=== PATIENT | female | born 1985 | race Caucasian/White ===

== ENCOUNTER 2017-07-29 15:50 | Emergency (ER) | payer MEDICAID, SELFPAY ==
[2017-07-29 16:09] VITALS: BP 127/70; PULSE 93; RESP 18; TEMP 36.9; O2SAT 99; BMI 27.3
--- NOTE | 2017-07-29 17:21 | HMH.EDUTC ---
[facility] [place] Disposition Clinical Impression: Weakness Disposition: Left Against Medical Advice Condition on Discharge: Good Instructions: DI for Muscle Weakness Additional Instructions: As we discussed, your symptom can be the sign of various medical conditions. I understand you do not want any further workup at this time despite the education regarding possible differentials, risks associated with each. You choose to leave without further workup and followup only for new, worsening or persistent symptoms despite my medical advice to have further evaluation of today's symptoms. I advice further workup today but since you are not getting it, return immediately for new or worsening symptoms and call primary care in [place] tomorrow to schedule a follow up for symptoms. Forms: Work/School Release Time of Disposition: 17:40 Medical Decision Making Vital Signs: 07/29/17 16:09 Temperature 98.5 F Temperature Source Temporal Artery Scan Pulse Rate [Right Radial] 93 H Respiratory Rate 18 Blood Pressure [Right Arm] 127/70 Blood Pressure Mean [Right Arm] 89 Blood Pressure Source [Right Arm] Automatic Cuff Blood Pressure Position [Right Arm] Sitting 02 Sat by Pulse Oximetry 99 Oxygen Delivery Method Room Air - Lab Data FSBG 119 Orders (Tests/Meds): ORDERS Category Date Time Status POC Glucose,Bedside Routine Lab 07/29/17 16:13 Received - Oneal Inquiry Pt receiving controlled substance: No - Reevaluation(s) Reevaluation #1: Refusing further workup. Only wanted blood sugar. Discussed possible differentials and risk associated with each. pt still refusing labs, ekg, u/a, possibly CXR against my medical advice. pt adamant related to her diet and lack of vitamins. [facility] [place] HPI - General Stated complaint: weakness Time Seen by Provider: 07/29/17 17:15 Mode of Arrival: Family Vehicle Source of Information: Patient Limitations: No Limitations Description of Symptoms (Recalled from Triage Doc. by RN): PT STATES SHE WOULD LIKE HER BLOOD SUGAR CHECKED D/T FEELING WEAK, FEELING LIKE GOING TO PASS OUT, AND UNABLE TO STAND FOR LONG PERIODS OF TIME. HEENT Symptoms (Recalled from RN notes): No Resp Symptoms (Recalled from RN notes): No Skin Symptoms (Recalled from RN notes): No MS Symptoms (Recalled from RN notes): No Functional Status (Recalled from RN notes): NA - History of Present Illness Provider Complaint: Here w/ 13 year old neice and pt's sister (sister in waiting room) c/o generalized weakness since yesterday. Wanting her blood sugar checked. Thinks it is likely due to not getting the appropriate vitamins everyday but someone told her to have her blood sugar checked. Has drank mild and ate 3 cookies today. First noticed at work yesterday. [employer]. States she started to feel hot and tingly like before you pass out . Imprved with sitting down. [place] the same way again today. Fatigue and just overall feel drained . Denies any other symptoms. Hasn't taken or tried anything for symptoms. No new medications. On current meds (seroquel, remeron and buspar x 1 year for depression, anxiety, schizophrenia). Niece w/ intermittent N/V x 5 days. - Related Data Home Medications Medication Instructions Recorded Confirmed Buspirone HCl [Buspirone HCl] 15 mg PO DAILY 07/29/17 07/29/17 Mirtazapine [Mirtazapine] 30 mg PO DAILY 07/29/17 07/29/17 Quetiapine Fumarate 400 mg PO DAILY 07/29/17 07/29/17 Allergies Allergy/AdvReac Type Severity Reaction Status Date / Time latex [LATEX] Allergy Unknown Verified 07/29/17 16:20 codeine Allergy Verified 07/29/17 16:20 - Worker's Comp Is this a Worker's Comp case?: No [facility] History I have reviewed the patient's past medical history: Yes Medical History: Reports:: Anxiety, Depression, Kidney Stones Denies:: Cancer, Diabetes Mellitus Type 1, Diabetes Mellitus Type 2, MRSA Other Medical History: Reports: Other (schizophrenia) Other Surgeries: Yes: (x3), Other (kidney
--- NOTE | 2017-07-29 17:33 | ED_ITS ---
[facility] [place] Clinical Impression: Weakness Disposition: Left Against Medical Advice Condition on Discharge: Good Instructions: DI for Muscle Weakness Additional Instructions: As we discussed, your symptom can be the sign of various medical conditions. I understand you do not want any further workup at this time despite the education regarding possible differentials, risks associated with each. You choose to leave without further workup and followup only for new, worsening or persistent symptoms despite my medical advice to have further evaluation of today's symptoms. I advice further workup today but since you are not getting it , return immediately for new or worsening symptoms and call primary care in [place] tomorrow to schedule a follow up for symptoms. Forms: Work/School Release Time of Disposition: 17:40 Medical Decision Making Vital Signs: 07/29/17 16:09 Temperature 98.5 F Temperature Source Temporal Artery Scan Pulse Rate [Right Radial] 93 H Respiratory Rate 18 Blood Pressure [Right Arm] 127/70 Blood Pressure Mean [Right Arm] 89 Blood Pressure Source [Right Arm] Automatic Cuff Blood Pressure Position [Right Arm] Sitting 02 Sat by Pulse Oximetry 99 Oxygen Delivery Method Room Air - Lab Data FSBG 119 Orders (Tests/Meds): ORDERS Category Date Time Status POC Glucose,Bedside Routine Lab 07/29/17 16:13 Received - Oneal Inquiry Pt receiving controlled substance: No - Reevaluation(s) Reevaluation #1: Refusing further workup. Only wanted blood sugar. Discussed possible differentials and risk associated with each. pt still refusing labs, ekg, u/a, possibly CXR against my medical advice. pt adamant related to her diet and lack of vitamins. [facility] [place] - General Stated complaint: weakness Time Seen by Provider: 07/29/17 17:15 Mode of Arrival: Family Vehicle Source of Information: Patient Limitations: No Limitations Description of Symptoms (Recalled from Triage Doc. by RN): PT STATES SHE WOULD LIKE HER BLOOD SUGAR CHECKED D/T FEELING WEAK, FEELING LIKE GOING TO PASS OUT, AND UNABLE TO STAND FOR LONG PERIODS OF TIME. HEENT Symptoms (Recalled from RN notes): No Resp Symptoms (Recalled from RN notes): No Skin Symptoms (Recalled from RN notes): No MS Symptoms (Recalled from RN notes): No Functional Status (Recalled from RN notes): NA - History of Present Illness Provider Complaint: Here w/ 13 year old neice and pt's sister (sister in waiting room) c/o generalized weakness since yesterday. Wanting her blood sugar checked. Thinks it is likely due to not getting the appropriate vitamins everyday but someone told her to have her blood sugar checked. Has drank mild and ate 3 cookies today. 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 States she started to feel hot and tingly like before you pass out . Imprved with sitting down. [place] the same way again today. Fatigue and just overall feel drained . Denies any other symptoms. Hasn't taken or tried anything for symptoms. No new medications. On current meds (seroquel, remeron and buspar x 1 year for depression, anxiety, schizophrenia). Niece w/ intermittent N/V x 5 days. - Related Data Home Medications Medication Instructions Recorded Confirmed Buspirone HCl [Buspirone HCl] 15 mg PO DAILY 07/29/17 07/29/17 Mirtazapine [Mirtazapine] 30 mg PO DAILY 07/29/17 07/29/17 Quetiapine Fumarate 400 mg PO DAILY 07/29/17 07/29/17 Diego
[2017-07-29 17:42] VITALS: BP 121/66; PULSE 61; RESP 20; TEMP 36.9; O2SAT 99
[2017-08-01 15:08] LABS: POC Glucose,Bedside 119 mg/dL (70-110)
== END 2017-07-29 17:44 | disposition left against medical advice (07) ==
PROVIDERS: Emergency Provider Nurse Practitioner Family; Family Provider Family Medicine
DX: R53.1 Weakness (principal); Z53.21 Procedure and treatment not carried out due to patient leaving prior to being seen by health care provider; F41.9 Anxiety disorder, unspecified; F32.9 Major depressive disorder, single episode, unspecified; Z79.899 Other long term (current) drug therapy; F17.210 Nicotine dependence, cigarettes, uncomplicated
CPT/HCPCS: 82962; 99202

== ENCOUNTER → 2018-04-01 10:51 | Outpatient (CLI) | payer MEDICAID, SELFPAY ==
--- NOTE | 2018-04-01 10:57 | US_ITS ---
US breast RT complete INDICATION: Right breast tenderness ORDERING PHYSICIAN: Jeana Argueta PATIENT AGE: 32 years COMPARISON: None TECHNIQUE: Right breast ultrasound with right axilla FINDINGS: No cystic or solid lesions evident. Heterogeneous fibroglandular elements noted IMPRESSION: Negative right breast ultrasound BI-RADS Category: 1 Negative Recommend correlation with physical exam. Any palpable nodule should be further evaluated with mammography. Negative ultrasound does not exclude the possibility of malignancy. (A letter has been sent to the patient regarding results of the study.)
== END ==
PROVIDERS: Visit Provider Nurse Practitioner Family
DX: N60.01 Solitary cyst of right breast (principal)
CPT/HCPCS: 76641

== ENCOUNTER → 2018-04-09 15:53 | Outpatient (CLI) | payer MEDICAID, SELFPAY ==
[2018-04-09 16:42] LABS: Basophils % 0.6 % (0.1-2.0); Eosinophils # 0.4 K/mm3 (0.0-0.4); Eosinophils % 6.6 % (0.1-12.0); Hematocrit 35.9 % (37.0-47.0); Hemoglobin 11.5 g/dL (12.2-16.2); Lymphocytes # 1.9 K/mm3 (0.7-4.5); Lymphocytes % 36.4 % (10-50); Mean Corpuscular HGB Conc 32.2 g/dL (31.8-35.4); Mean Corpuscular Hemoglobin 30.2 pg (27.0-31.2); Mean Corpuscular Volume 93.9 fl (81-99); Mean Platelet Volume 7.8 fl (7.4-10.4); Monocytes # 0.2 K/mm3 (0.1-1.0); Monocytes % 4.4 % (1.7-9.3); Neutrophils # 2.8 K/mm3 (1.8-7.8); Platelet Count 275 K/mm3 (142-424); Red Blood Count 3.82 M/mm3 (4.20-5.40); Red Cell Distribution Width 12.6 % (11.5-17.5); White Blood Count 5.3 K/mm3 (4.8-10.8)
[2018-04-09 17:58] LABS: Alanine Aminotransferase 33 U/L (12-78); Albumin Level 3.9 gm/dL (3.4-5.0); Albumin/Globulin Ratio 1.1 (1.1-1.8); Alkaline Phosphatase 75 U/L (46-116); Anion Gap 13.9 mEq/L (5-15); Aspartate Amino Transferase 24 U/L (15-37); Bilirubin,Total 0.6 mg/dL (0.2-1.0); Blood Urea Nitrogen 20 mg/dL (7-18); Calcium 9.9 mg/dL (8.5-10.1); Carbon Dioxide 27 mmol/L (21.0-32.0); Chloride 103 mmol/L (98-107); Creatinine,Serum 1.08 mg/dL (0.55-1.02); Estimated Glomerular Filt Rate 58 ml/min (>60); GFR (African American) 70 ML/MIN (>60); Globulin 3.5 gm/dl (1.3-3.2); Glucose 87 mg/dL (74-106); Potassium 4.9 mmoL/L (3.5-5.1); Sodium 139 mmol/L (136-145); Total Protein,Serum 7.4 gm/dL (6.4-8.2)
[2018-04-11 07:17] LABS: Hep A Ab, IgM Negative (Negative); Hepatitis B Core Antibody IgM Negative (Negative); Hepatitis B Surface Antigen Negative (Negative)
[2018-04-11 15:51] LABS: HIV Screen 4th Generation wRfx Non Reactive (Non Reactive); Hepatitis C Antibody >11.0 s/co ratio (0.0-0.9); Vitamin B12 531 pg/mL (232-1245); Vitamin D 25 Hydroxy 27.6 ng/mL (30.0-100.0)
== END ==
PROVIDERS: Visit Provider Nurse Practitioner Family
DX: B18.2 Chronic viral hepatitis C (principal); R53.83 Other fatigue; Z87.898 Personal history of other specified conditions
CPT/HCPCS: 36415; 80053; 80074; 82607; 82652; 85025; 86703; 87522; G0432

== ENCOUNTER → 2018-12-11 15:31 | Outpatient (CLI) | payer MEDICAID, SELFPAY ==
--- NOTE | 2018-12-11 15:32 | US_ITS ---
US transvaginal HISTORY: Irregular periods, skipping periods ITS.REASON: US T/V- Pelvic Pain ORDERING PHYSICIAN: Epi Fischer MD PATIENT AGE: 33 years Comparison: None FINDINGS: The uterus is 8 by 4 x 4 centimeters with a combined endometrial thickness of 4 mm. No obvious uterine mass. Unremarkable adnexa. No ovarian mass. No cul-de-sac fluid. Blood flow is present in the ovaries. IMPRESSION: Unremarkable pelvic ultrasound
== END ==
PROVIDERS: PCP Internal Medicine Adolescent Medicine; Visit Provider Nurse Practitioner Obstetrics & Gynecology
DX: R10.2 Pelvic and perineal pain (principal)
CPT/HCPCS: 76830

== ENCOUNTER → 2018-12-18 16:48 | Outpatient (CLI) | payer MEDICAID, SELFPAY ==
[2018-12-18 17:52] LABS: Basophils % 0.1 % (0.1-2.0); Eosinophils # 0.2 K/mm3 (0.0-0.4); Hematocrit 26.4 % (37.0-47.0); Hemoglobin 8.7 g/dL (12.2-16.2); Lymphocytes # 0.9 K/mm3 (0.7-4.5); Lymphocytes % 11.7 % (10-50); Mean Corpuscular HGB Conc 32.9 g/dL (31.8-35.4); Mean Corpuscular Hemoglobin 29.9 pg (27.0-31.2); Mean Corpuscular Volume 90.8 fl (81-99); Mean Platelet Volume 8.1 fl (7.4-10.4); Monocytes # 0.2 K/mm3 (0.1-1.0); Monocytes % 3.1 % (1.7-9.3); Neutrophils # 6.4 K/mm3 (1.8-7.8); Neutrophils % 83.2 % (37.0-80.0); Platelet Count 173 K/mm3 (142-424); Red Blood Count 2.91 M/mm3 (4.20-5.40); Red Cell Distribution Width 12.8 % (11.5-17.5); White Blood Count 7.7 K/mm3 (4.8-10.8)
[2018-12-18 18:18] LABS: HCG Qualitative, Serum Negative (Negative)
[2018-12-18 18:23] LABS: Bilirubin,Direct 0.1 mg/dL (0.0-0.2)
[2018-12-18 18:36] LABS: Alanine Aminotransferase 47 U/L (12-78); Albumin Level 2.5 gm/dL (3.4-5.0); Albumin/Globulin Ratio 0.7 (1.1-1.8); Alkaline Phosphatase 109 U/L (46-116); Anion Gap 14.2 mEq/L (5-15); Aspartate Amino Transferase 17 U/L (15-37); Bilirubin,Total 0.4 mg/dL (0.2-1.0); Blood Urea Nitrogen 16 mg/dL (7-18); Calcium 8.8 mg/dL (8.5-10.1); Carbon Dioxide 24 mmol/L (21.0-32.0); Chloride 105 mmol/L (98-107); Creatinine,Serum 1.64 mg/dL (0.55-1.02); Estimated Glomerular Filt Rate 36 ml/min (>60); GFR (African American) 43 ML/MIN (>60); Globulin 3.6 gm/dl (1.3-3.2); Glucose 157 mg/dL (74-106); Potassium 4.2 mmoL/L (3.5-5.1); Sodium 139 mmol/L (136-145); Thyroid Stimulating Hormone 0.45 uIU/ml (0.358-3.740); Total Protein,Serum 6.1 gm/dL (6.4-8.2)
[2018-12-19 13:16] LABS: Hemoglobin A1C 5.9 % (0.0-7.0)
[2018-12-19 13:19] LABS: Ferritin 247 ng/mL (8-388)
[2018-12-20 06:17] LABS: Hep A Ab, IgM Negative (Negative); Hepatitis B Core Antibody IgM Negative (Negative); Hepatitis B Surface Antigen Negative (Negative)
[2018-12-20 08:40] LABS: Iron 9 ug/dL (27-159); UIBC 187 ug/dL (131-425)
[2018-12-20 18:13] LABS: HIV Screen 4th Generation wRfx Non Reactive (Non Reactive); HSV 1 IgG, Type Spec 9.95 index (0.00-0.90); HSV 2 IgG, Type Spec <0.91 index (0.00-0.90); Hepatitis C Antibody >11.0 s/co ratio (0.0-0.9); Rapid Plasma Reagin Ab Titer Non Reactive (NonRea<1:1)
[2018-12-20 18:14] LABS: Iron Saturation 5 % (15-55)
[2018-12-20 18:14] LABS: Vitamin B12 1005 pg/mL (232-1245); Vitamin D 25 Hydroxy 31.8 ng/mL (30.0-100.0)
[2018-12-22 11:33] LABS: HCV Genotype Charge YES; Hepatitis C Genotype 3 (.)
[2018-12-24 15:09] LABS: Hepatitis C Genotype 3 (.)
== END ==
PROVIDERS: Nurse Practitioner Family; Visit Provider Nurse Practitioner Obstetrics & Gynecology
DX: F19.20 Other psychoactive substance dependence, uncomplicated (principal); Z72.51 High risk heterosexual behavior
CPT/HCPCS: 36415; 80053; 80074; 82248; 82607; 82652; 82728; 83036; 83540; 83550; 84443; 84703; 85025; 86592; 86695; 86703; 86790; 87521; 87522; 87902; G0432

== ENCOUNTER 2018-12-19 14:11 | Inpatient (IN) ==
[2018-12-19 15:12] LABS: Basophils % 0.2 % (0.1-2.0); Eosinophils # 0.2 K/mm3 (0.0-0.4); Eosinophils % 3.3 % (0.1-12.0); Hematocrit 25.5 % (37.0-47.0); Lymphocytes # 1.1 K/mm3 (0.7-4.5); Lymphocytes % 20.5 % (10-50); Mean Corpuscular HGB Conc 30.5 g/dL (31.8-35.4); Mean Corpuscular Volume 91.3 fl (81-99); Mean Platelet Volume 8.3 fl (7.4-10.4); Monocytes # 0.4 K/mm3 (0.1-1.0); Monocytes % 6.6 % (1.7-9.3); Neutrophils # 3.8 K/mm3 (1.8-7.8); Neutrophils % 69.5 % (37.0-80.0); Platelet Count 171 K/mm3 (142-424); Red Blood Count 2.79 M/mm3 (4.20-5.40); Red Cell Distribution Width 12.7 % (11.5-17.5); White Blood Count 5.5 K/mm3 (4.8-10.8)
[2018-12-19 15:15] LABS: Hemoglobin 7.8 g/dL (12.2-16.2)
[2018-12-19 15:24] LABS: Albumin Level 2.4 gm/dL (3.4-5.0); Albumin/Globulin Ratio 0.5 (1.1-1.8); Anion Gap 13.8 mEq/L (5-15); Bilirubin,Total 0.4 mg/dL (0.2-1.0); Calcium 9.3 mg/dL (8.5-10.1); Globulin 4.5 gm/dl (1.3-3.2); Total Protein,Serum 6.9 gm/dL (6.4-8.2)
[2018-12-19 15:44] LABS: Amphetamine/Metha Screen,Urine Negative ng/mL (<1000); Barbiturates Screen,Urine Negative ng/mL (<200); Benzodiazepines Screen,Urine Negative ng/mL (<200); Cannabinoid Screen,Urine Negative ng/mL (<50); Cocaine Screen,Urine Negative ng/mL (<300); Methadone Screen,Urine Negative ng/mL (<300); Opiate Screen,Urine Negative ng/mL (<300); Phencyclidine Screen,Urine Negative ng/mL (<25)
--- NOTE | 2018-12-19 16:27 | History & Physical Report ---
*Admission Date: 12/19/18 *Chief complaint: weakness, fatigue, fever, chills, abd pain, HGB 7.8 *History of present illness: 33 year old female with h/o IV drug use, Hep C, and depression including several psychiatric hospitalizations presented to PCP office yesterday with a 3 day history of fever, chills, body aches, abd pain and nausea/vomiting. Assessment was unremarkable with exception of non-specific RLQ tenderness. She was sent for labs which revealed HGB 8.6 and creatinine 1.6. Patient was brought in today for repeat labs, IVF's and CT imaging. Repeat labs showed HGB 7.8 with slight improvement in creat 1.4 She continues to have subjective fevers, chills and body aches. + nausea, no vomiting today. No diarrhea. Reports chronic constipation with no BM in "10 days." States stool was dark prior to that. Denies excessive menstrual bleeding, last menses was approx 3 months ago. Urine preg and urine drug screen were negative. No recent weight loss, loss of appetite, fatigue, easy bruising/bleeding prior to this week. Reported to nursing that last drug use was "3 weeks ago." Patient was admitted for transfusion, CT imaging and surgery consult. [facility] History I have reviewed the patient's past medical history: Yes Medical History: Reports:: Anxiety, Depression, Kidney Stones Denies:: Cancer, Diabetes Mellitus Type 1, Diabetes Mellitus Type 2, MRSA *Have you ever received a pneumonia vaccine?: No *Have you received a flu vaccine this season?: No Other Medical History: Reports: Other Other Surgeries: Yes: , Other Amputation: No Fractures: Yes (ANKLE) - *Social History Smoking Status: Current every day smoker Tobacco Type: cigarettes Alcohol Intake: never Alcohol Intake Frequency:: a few times a month Substance Use Type: heroin, IV drugs, methamphetamine *Occupational Status:: other *Travel in the last 8 weeks: None - Psychiatric History Pschychiatric History:: Reports:: Anxiety, Depression Family Hx:: No significant family history Review of Systems - Constitutional Reports fatigue, Reports fever(s), Reports lack of energy, Reports malaise, Reports weakness - *Gastrointestinal Reports abdominal pain, Reports constipation, Reports nausea, Reports vomiting Comments: dark stools - *Musculoskeletal Reports back pain Meds Home Medications Medication Instructions Recorded Confirmed Type Etodolac [Etodolac 200mg Cap] 200 mg PO Q6HP PRN #20 cap 12/07/18 12/19/18 Rx Methocarbamol [Methocarbamol 500mg 500 mg PO QID PRN #20 tab 12/07/18 12/19/18 Rx Tablet] Buprenorphine HCl/Naloxone HCl 1 tab PO DAILY 12/19/18 12/19/18 History [Buprenorphin-Naloxon 8-2 mg Sl] Buspirone HCl [Buspar 10mg 10 mg PO TID 12/19/18 12/19/18 History tablet] Quetiapine Fumarate 50 mg PO DAILY 12/19/18 12/19/18 History Quetiapine Fumarate 100 mg PO HS 12/19/18 12/19/18 History buPROPion HCl [Bupropion Xl] 300 mg PO DAILY 12/19/18 12/19/18 History Allergies Allergy/AdvReac Type Severity Reaction Status Date / Time latex [LATEX] Allergy Unknown Verified 10/29/18 10:23 codeine Allergy Verified 10/29/18 10:23 Exam Vital signs and Labs for Last 24 Hours: Pulse Resp BP Pulse Ox 74 18 106/46 L 99 12/19/18 15:10 12/19/18 15:10 12/19/18 15:10 12/19/18 15:10 Laboratory Results - last 24 hr 12/19/18 14:25: WBC 5.5 D, RBC 2.79 L, Hgb 7.8 L*, Hct 25.5 L, MCV 91.3, MCH 27.8, MCHC 30.5 L, RDW 12.7, Plt Count 171, MPV 8.3, Neut % (Auto) 69.5, Lymph % (Auto) 20.5, [place] % (Auto) 6.6, Eos % (Auto) 3.3, Baso % (Auto) 0.2, Neut # (Auto) 3.8, Lymph # (Auto) 1.1, [place] # (Auto) 0.4, Eos # (Auto) 0.2, Baso # (Auto) 0.0 12/19/18 14:25: Sodium 136, Potassium 4.8, Chloride 102, Carbon Dioxide 25, Anion Gap 13.8, BUN 16, Creatinine 1.47 H, Estimated Creat Clear 63, Estimated GFR 40 L, Est GFR ( Amer) 49 L, Glucose 98 D, Calcium 9.3, Total Bilirubin 0.4, AST 15, ALT 42, Alkaline Phosphatase 136 H, Total Protein 6.9, Albumin 2.4 L, Globulin 4.5 H, Albumin/Globulin Ratio 0.5 L 12/19/18 14:25: Urine HCG, Qual Negative 12/19/18 14:25: Urine Opiates Screen Negative, Urine Methadone Screen Negative, Ur Barbituates Screen Negative, Ur Phencyclidine Scrn Negative, Ur Amphetamines Screen Negative, U Benzodiazepines Scrn Negative, Urine Cocaine Screen Negative, U Marijuana (THC) Screen Negative I & O for Last 24 hours: Intake & Output 12/17/18 12/18/18 12/19/18 12/20/18 11:59 11:59 11:59 11:59 Weight 164 lb Narrative: Alert and oriented x3. Ill but not toxic female. Rate and rhythm regular. No LE edema. No cervical LAD. Lung sounds clear and equal. Abdomen soft, distended, RLQ/RUQ tenderness, no guarding or rebound. Normoactive BS. ENT exam-dry mucous membranes Assessment and Plan (1) Anemia Current visit: Yes Status: Acute Qualifiers: Anemia type: unspecified type Qualified Code(s): D64.9 - Anemia, unspecified Category: Medical Code(s): D64.9 - Anemia, unspecified (2) Abdominal pain Current visit: Yes Status: Acute Qualifiers: Abdominal location: right lower quadrant Qualified Code(s): R10.31 - Right lower quadrant pain Category: Medical Code(s): R10.9 - Unspecified abdominal pain (3) H/O intravenous drug use in remission Current visit: Yes Status: Acute Category: Medical Code(s): Z87.898 - Personal history of other specified conditions (4) Hep C w/o coma, chronic Current visit: Yes Status: Chronic Category: Medical Code(s): B18.2 - Chronic viral hepatitis C (5) Fever and chills Current visit: Yes Status: Acute Category: Medical Code(s): R50.9 - Fever, unspecified (6) Dehydration Current visit: Yes Status: Acute Category: Medical Code(s): E86.0 - Dehydration - Assessment and plan all Dx Assessment and Plan for all problems:: Admit to medsurg. Type, cross and transfuse [address] imaging of chest, abd and pelvis. Start PPI. Iron studies and B12 level pending. Consult surgery
[2018-12-19 16:48] LABS: Prothrombin Time 10.4 seconds (9.4-11.8)
[2018-12-20 01:22] LABS: Hemoglobin 8.5 g/dL (12.2-16.2)
[2018-12-20 01:23] LABS: Hematocrit 26.9 % (37.0-47.0)
--- NOTE | 2018-12-20 08:17 | Consult Report ---
*Admission Date: 12/19/18 *Reason for consult:: Anemia *History of present illness: This is a 33-year-old female seen in consultation from the service of Dr. Mendes for evaluation regarding anemia. Please see history of present illness forwarded from admission H&P below. 33 year old female with h/o IV drug use, Hep C, and depression including several psychiatric hospitalizations presented to PCP office yesterday with a 3 day history of fever, chills, body aches, abd pain and nausea/vomiting. Assessment was unremarkable with exception of non-specific RLQ tenderness. She was sent for labs which revealed HGB 8.6 and creatinine 1.6. Patient was brought in today for repeat labs, IVF's and CT imaging. Repeat labs showed HGB 7.8 with slight improvement in creat 1.4 She continues to have subjective fevers, chills and body aches. + nausea, no vomiting today. No diarrhea. Reports chronic constipation with no BM in "10 days." States stool was dark prior to that. Denies excessive menstrual bleeding, last menses was approx 3 months ago. Urine preg and urine drug screen were negative. No recent weight loss, loss of appetite, fatigue, easy bruising/bleeding prior to this week. Reported to nursing that last drug use was "3 weeks ago." Patient was admitted for transfusion, CT imaging and surgery consult. Review of Systems - Constitutional Denies chills - ENT Denies difficulty swallowing - *Cardiovascular Denies chest pain - *Respiratory Denies cough - *Gastrointestinal Reports nausea, Reports vomiting - *Genitourinary Denies abnormal vaginal bleeding - *Musculoskeletal Denies numbness - Integumentary/Breasts Denies bleeding lesions - *Neurologic Reports weakness, Denies confusion - Psychiatric Denies anxiety - Endocrine Denies increased thirst - Hematologic/Lymphatic Denies easy bleeding - Allergic/Immunologic Denies GI upset with certain foods [facility] History Medical History: Reports:: Anxiety, Depression, Kidney Stones Denies:: Cancer, Diabetes Mellitus Type 1, Diabetes Mellitus Type 2, MRSA *Have you ever received a pneumonia vaccine?: No *Have you received a flu vaccine this season?: No Other Medical History: Reports: Anemia, Liver Disease, Other Other Surgeries: Yes: , Other Amputation: No Fractures: Yes (ANKLE) - *Social History Educational Level: Completed High School Smoking Status: Current every day smoker Tobacco Type: cigarettes Alcohol Intake: never Alcohol Intake Frequency:: a few times a month Substance Use Type: former substance user, heroin, amphetamines Last Used Substance: days (ago) *Occupational Status:: other Housing: house Household Members: family *Travel in the last 8 weeks: None - Psychiatric History Expresses thoughts of harming self/others: None Suicide Plan Description: No Plan Pschychiatric History:: Reports:: Anxiety, Depression Family Hx:: No significant family history Meds Home Medications Medication Instructions Recorded Confirmed Type Etodolac [Etodolac 200mg Cap] 200 mg PO Q6HP PRN #20 cap 12/07/18 12/19/18 Rx Methocarbamol [Methocarbamol 500mg 500 mg PO QID PRN #20 tab 12/07/18 12/19/18 Rx Tablet] Buprenorphine HCl/Naloxone HCl 1 tab PO DAILY 12/19/18 12/19/18 History [Buprenorphin-Naloxon 8-2 mg Sl] Buspirone HCl [Buspar 10mg 10 mg PO TID 12/19/18 12/19/18 History tablet] Quetiapine Fumarate 50 mg PO DAILY 12/19/18 12/19/18 History Quetiapine Fumarate 100 mg PO HS 12/19/18 12/19/18 History buPROPion HCl [Bupropion Xl] 300 mg PO DAILY 12/19/18 12/19/18 History Allergies Allergy/AdvReac Type Severity Reaction Status Date / Time latex [LATEX] Allergy Unknown Verified 10/29/18 10:23 codeine Allergy Verified 10/29/18 10:23 Exam Vital signs and Labs for Last 24 Hours: Temp Pulse Resp BP Pulse Ox 99.3 F 80 18 126/55 L 95 12/20/18 08:00 12/20/18 08:00 12/20/18 08:00 12/20/18 08:00 12/20/18 08:00 Laboratory Results - last 24 hr 12/19/18 14:25: WBC 5.5 D, RBC 2.79 L, Hgb 7.8 L*, Hct 25.5 L, MCV 91.3, MCH 27.8, MCHC 30.5 L, RDW 12.7, Plt Count 171, MPV 8.3, Neut % (Auto) 69.5, Lymph % (Auto) 20.5, [place] % (Auto) 6.6, Eos % (Auto) 3.3, Baso % (Auto) 0.2, Neut # (Auto) 3.8, Lymph # (Auto) 1.1, [place] # (Auto) 0.4, Eos # (Auto) 0.2, Baso # (Auto) 0.0 12/19/18 14:25: Sodium 136, Potassium 4.8, Chloride 102, Carbon Dioxide 25, Anion Gap 13.8, BUN 16, Creatinine 1.47 H, Estimated Creat Clear 63, Estimated GFR 40 L, Est GFR ( Amer) 49 L, Glucose 98 D, Calcium 9.3, Total Bilirubin 0.4, AST 15, ALT 42, Alkaline Phosphatase 136 H, Total Protein 6.9, Albumin 2.4 L, Globulin 4.5 H, Albumin/Globulin Ratio 0.5 L 12/19/18 14:25: Urine HCG, Qual Negative 12/19/18 14:25: Urine Opiates Screen Negative, Urine Methadone Screen Negative, Ur Barbituates Screen Negative, Ur Phencyclidine Scrn Negative, Ur Amphetamines Screen Negative, U Benzodiazepines Scrn Negative, Urine Cocaine Screen Negative, U Marijuana (THC) Screen Negative 12/19/18 16:35: PT 10.4, INR 1.00 12/19/18 16:35: Blood Type O Positive, Antibody Screen Negative, Crossmatch (AHG) See Detail 12/19/18 16:35: APTT 32.5 12/19/18 17:25: Blood Type Confirm O Positive 12/20/18 01:05: Hgb 8.5 L, Hct 26.9 L I & O for Last 24 hours: Intake & Output 12/17/18 12/18/18 12/19/18 12/20/18 11:59 11:59 11:59 11:59 Intake Total 2420 / 2420 Balance 2420 / 2420 Weight 106 lb 6 oz - Constitutional no acute distress - *Routine Respiratory Exam Absent: respiratory distress - *Routine Cardiovascular Exam Present: RRR - *Routine Abdominal Exam Present: soft Results - Labs 12/20/18 01:05 12/19/18 14:25 Laboratory Results - last 24 hr 12/19/18 14:25: WBC 5.5 D, RBC 2.79 L, Hgb 7.8 L*, Hct 25.5 L, MCV 91.3, MCH 27.8, MCHC 30.5 L, RDW 12.7, Plt Count 171, MPV 8.3, Neut % (Auto) 69.5, Lymph % (Auto) 20.5, [place] % (Auto) 6.6, Eos % (Auto) 3.3, Baso % (Auto) 0.2, Neut # (Auto) 3.8, Lymph # (Auto) 1.1, [place] # (Auto) 0.4, Eos # (Auto) 0.2, Baso # (Auto) 0.0 12/19/18 14:25: Sodium 136, Potassium 4.8, Chloride 102, Carbon Dioxide 25, Anion Gap 13.8, BUN 16, Creatinine 1.47 H, Estimated Creat Clear 63, Estimated GFR 40 L, Est GFR ( Amer) 49 L, Glucose 98 D, Calcium 9.3, Total Bilirubin 0.4, AST 15, ALT 42, Alkaline Phosphatase 136 H, Total Protein 6.9, Albumin 2.4 L, Globulin 4.5 H, Albumin/Globulin Ratio 0.5 L 12/19/18 14:25: Urine HCG, Qual Negative 12/19/18 14:25: Urine Opiates Screen Negative, Urine Methadone Screen Negative, Ur Barbituates Screen Negative, Ur Phencyclidine Scrn Negative, Ur Amphetamines Screen Negative, U Benzodiazepines Scrn Negative, Urine Cocaine Screen Negative, U Marijuana (THC) Screen Negative 12/19/18 16:35: PT 10.4, INR 1.00 12/19/18 16:35: Blood Type O Positive, Antibody Screen Negative, Crossmatch (AHG) See Detail 12/19/18 16:35: APTT 32.5 12/19/18 17:25: Blood Type Confirm O Positive 12/20/18 01:05: Hgb 8.5 L, Hct 26.9 L Assessment and Plan (1) Anemia Current visit: Yes Status: Acute Qualifiers: Anemia type: unspecified type Qualified Code(s): D64.9 - Anemia, unspecified Category: Medical Code(s): D64.9 - Anemia, unspecified Follow-up repeat hemoglobin Esophagogastroduodenoscopy this morning I have discussed the risks and benefits including, but not limited to: Bleeding Infection Damage to surrounding tissue Inherent risks of sedation The patient agrees to proceed. (2) Abdominal pain Current visit: Yes Status: Acute Qualifiers: Abdominal location: right lower quadrant Qualified Code(s): R10.31 - Right lower quadrant pain Category: Medical Code(s): R10.9 - Unspecified abdominal pain (3) H/O intravenous drug use in remission Current visit: Yes Status: Acute Category: Medical Code(s): Z87.898 - Personal history of other specified conditions (4) Hep C w/o coma, chronic Current visit: Yes Status: Chronic Category: Medical Code(s): B18.2 - Chronic viral hepatitis C (5) Fever and chills Current visit: Yes Status: Acute Category: Medical Code(s): R50.9 - Fever, unspecified (6) Dehydration Current visit: Yes Status: Acute Category: Medical Code(s): E86.0 - Dehydration
--- NOTE | 2018-12-20 09:27 | Procedure Note ---
- Procedure: Date: 12/20/18 Procedure Performed:: Esophagogastroduodenoscopy with biopsy Indications:: Anemia Performing Provider:: Ford Colmenares MD Referring Provider:: Dr. Quintana; Dominique Butcher APRN Sedation:: Monitored anesthesia care Procedure:: After informed consent was obtained the patient was taken to the endoscopy suite. Sedation ensued after the patient was transferred to the left lateral decubitus position. Pulse, blood pressure, and oxygen saturation were monitored throughout the procedure. The endoscope was advanced beyond the duodenal bulb. Retroflexion within the gastric lumen was accomplished. The gastroscope was carefully removed and the patient was transferred to recovery in stable condition. Please see "findings" and "specimens" below for detail. Findings:: Small shallow mid-gastric body ulcer with no sign of active hemorrhage ([id number] inflammatory response along margin of gastric ulcer) Specimens:: Antral biopsy Multiple biopsies of small shallow mid gastric body ulcer Recommendations:: Continue proton pump inhibitor Begin Carafate Repeat EGD in approximately 6 weeks Complications:: No immediate Estimated blood obtained (mL): 1
--- NOTE | 2018-12-20 09:43 | Progress Note ---
[facility] Anesthesia Checklist - Structural Data Admitted From: Inpatient Planned Operative Procedure/s: egd Consent for Planned Operative Procedure(s) Verified: Yes - Airway Assessment C-Spine Mobility Assessed: Yes TMJ Mobility Assessed: Yes Dentition: Good Dentition - Neurological Assessment Level of Consciousness: Awake, Alert, Appropriate - Anesthesia Plan Anesthesia Risk discussed: Yes Anesthesia Plan: Verified ASA Class: II Anesthesia Type: MAC [facility] History I have reviewed the patient's past medical history: Yes Medical History: Reports:: Anxiety, Depression, Kidney Stones Denies:: Cancer, Diabetes Mellitus Type 1, Diabetes Mellitus Type 2, MRSA *Have you ever received a pneumonia vaccine?: No *Have you received a flu vaccine this season?: No Other Medical History: Reports: Anemia, Liver Disease, Other Other Surgeries: Yes: , Other Amputation: No Fractures: Yes (ANKLE) - *Social History Educational Level: Completed High School Smoking Status: Current every day smoker Tobacco Type: cigarettes Alcohol Intake: never Alcohol Intake Frequency:: a few times a month Substance Use Type: former substance user, heroin, amphetamines Last Used Substance: days (ago) *Occupational Status:: other Housing: house Household Members: family *Travel in the last 8 weeks: None - Psychiatric History Expresses thoughts of harming self/others: None Suicide Plan Description: No Plan Pschychiatric History:: Reports:: Anxiety, Depression Family Hx:: No significant family history
[2018-12-20 10:08] LABS: Basophils % 0.3 % (0.1-2.0); Eosinophils # 0.1 K/mm3 (0.0-0.4); Eosinophils % 1.6 % (0.1-12.0); Hematocrit 27.4 % (37.0-47.0); Hemoglobin 8.6 g/dL (12.2-16.2); Lymphocytes # 1.6 K/mm3 (0.7-4.5); Lymphocytes % 26.8 % (10-50); Mean Corpuscular HGB Conc 31.5 g/dL (31.8-35.4); Mean Corpuscular Volume 88.3 fl (81-99); Mean Platelet Volume 7.9 fl (7.4-10.4); Monocytes # 0.4 K/mm3 (0.1-1.0); Monocytes % 6.9 % (1.7-9.3); Neutrophils # 3.9 K/mm3 (1.8-7.8); Neutrophils % 64.4 % (37.0-80.0); Platelet Count 189 K/mm3 (142-424); Red Cell Distribution Width 13.6 % (11.5-17.5)
[2018-12-20 10:22] LABS: Anion Gap 10.8 mEq/L (5-15); Calcium 8.9 mg/dL (8.5-10.1)
--- NOTE | 2018-12-20 10:32 | Pharmacy Consult Notes ---
[facility] Pharmacy VTE Monitoring - Patient Demographics Admission date: 12/19/18 Report Date: 12/20/18 Time: 10:31 Allergies/Adverse Reactions: Patient Allergies latex [LATEX] Allergy (Unknown, Verified 10/29/18 10:23) codeine Allergy (Verified 10/29/18 10:23) Height: 1.73 m Weight: 48.251 kg Patient Problems: Current Active Problems (Updated 12/20/18 @ 08:17 by Ford Colmenares MD) Anemia (Acute) Abdominal pain (Acute) H/O intravenous drug use in remission (Acute) Hep C w/o coma, chronic (Chronic) Fever and chills (Acute) Dehydration (Acute) - VTE Risk Labs: VTE Related Lab Results Hgb 8.6 g/dL (12.2-16.2) L 12/20/18 10:00 Hct 27.4 % (37.0-47.0) L 12/20/18 10:00 Plt Count 189 K/mm3 (142-424) 12/20/18 10:00 PT 10.4 seconds (9.4-11.8) 12/19/18 16:35 INR 1.00 (0.9-1.1) 12/19/18 16:35 APTT 32.5 seconds (23.6-34.0) 12/19/18 16:35 BUN 14 mg/dL (7-18) 12/20/18 10:00 Creatinine 1.44 mg/dL (0.55-1.02) H 12/20/18 10:00 Estimated Creat Clear 42 mL/min (50-200) 12/20/18 10:00 Was VTE Risk Assessment Performed: Yes VTE Score: 0 VTE Risk Level: Very Low Risk - Prophylaxis VTE Prophylaxis Ordered?: Yes Types of VTE Prophylaxis: TEDS Knee High Location of Applied Device: Bilateral Lower Extremeties
--- NOTE | 2018-12-20 11:25 | Progress Note ---
Internal Medicine - PN: Subj *Date: 12/20/18 *Time: 11:25 Interval history: Patient sitting up in bed eating clear liquid tray without any nausea, vomiting or abd pain. States she feels better and wants to advance diet. Fevers through the night, Tmax 103. CT abd/pelvis unremarkable with exception of mild inflammation right kidney and significant constipation. Urine culture pending at [facility]. I called lab, preliminary report shows E. Coli sensitivity pending. HGB 8.6 s/p 2 units PRBC. EGD showed small gastric ulcer with no active bleeding, but most likely source of her blood loss. Exam Vital signs and Labs for Last 24 Hours: Temp Pulse Resp BP Pulse Ox 98.2 F 73 16 112/59 L 96 12/20/18 09:32 12/20/18 09:32 12/20/18 09:32 12/20/18 09:32 12/20/18 09:32 Laboratory Results - last 24 hr 12/19/18 14:25: WBC 5.5 D, RBC 2.79 L, Hgb 7.8 L*, Hct 25.5 L, MCV 91.3, MCH 27.8, MCHC 30.5 L, RDW 12.7, Plt Count 171, MPV 8.3, Neut % (Auto) 69.5, Lymph % (Auto) 20.5, [facility] % (Auto) 6.6, Eos % (Auto) 3.3, Baso % (Auto) 0.2, Neut # (Auto) 3.8, Lymph # (Auto) 1.1, [facility] # (Auto) 0.4, Eos # (Auto) 0.2, Baso # (Auto) 0.0 12/19/18 14:25: Sodium 136, Potassium 4.8, Chloride 102, Carbon Dioxide 25, Anion Gap 13.8, BUN 16, Creatinine 1.47 H, Estimated Creat Clear 63, Estimated GFR 40 L, Est GFR ( Amer) 49 L, Glucose 98 D, Calcium 9.3, Total Bilirubin 0.4, AST 15, ALT 42, Alkaline Phosphatase 136 H, Total Protein 6.9, Albumin 2.4 L, Globulin 4.5 H, Albumin/Globulin Ratio 0.5 L 12/19/18 14:25: Urine HCG, Qual Negative 12/19/18 14:25: Urine Opiates Screen Negative, Urine Methadone Screen Negative, Ur Barbituates Screen Negative, Ur Phencyclidine Scrn Negative, Ur Amphetamines Screen Negative, U Benzodiazepines Scrn Negative, Urine Cocaine Screen Negative, U Marijuana (THC) Screen Negative 12/19/18 16:35: PT 10.4, INR 1.00 12/19/18 16:35: Blood Type O Positive, Antibody Screen Negative, Crossmatch (AHG) See Detail 12/19/18 16:35: APTT 32.5 12/19/18 17:25: Blood Type Confirm O Positive 12/20/18 01:05: Hgb 8.5 L, Hct 26.9 L 12/20/18 10:00: WBC 6.0, RBC 3.10 L, Hgb 8.6 L, Hct 27.4 L, MCV 88.3, MCH 27.8, MCHC 31.5 L, RDW 13.6, Plt Count 189, MPV 7.9, Neut % (Auto) 64.4, Lymph % (Auto) 26.8, [facility] % (Auto) 6.9, Eos % (Auto) 1.6, Baso % (Auto) 0.3, Neut # (Auto) 3.9, Lymph # (Auto) 1.6, [facility] # (Auto) 0.4, Eos # (Auto) 0.1, Baso # (Auto) 0.0 12/20/18 10:00: Sodium 138, Potassium 4.8, Chloride 106, Carbon Dioxide 26, Anion Gap 10.8, BUN 14, Creatinine 1.44 H, Estimated Creat Clear 42, Estimated GFR 41 L, Est GFR ( Amer) 50 L, Glucose 84, Calcium 8.9 I & O for Last 24 hours: Intake & Output 12/17/18 12/18/18 12/19/18 12/20/18 11:59 11:59 11:59 11:59 Intake Total 2420 / 2420 Balance 2420 / 2420 Weight 106 lb 6 oz Narrative: Alert and oriented x3. Rate and rhythm regular. Faint murmur noted on exam which is new. No LE edema. Anterior lung sounds clear. Abdomen, distended but soft. Nontender Assessment and Plan (1) Anemia Current visit: Yes Status: Acute Qualifiers: Anemia type: unspecified type Qualified Code(s): D64.9 - Anemia, unspecified Category: Medical Code(s): D64.9 - Anemia, unspecified (2) Abdominal pain Current visit: Yes Status: Acute Qualifiers: Abdominal location: right lower quadrant Qualified Code(s): R10.31 - Right lower quadrant pain Category: Medical Code(s): R10.9 - Unspecified abdominal pain (3) H/O intravenous drug use in remission Current visit: Yes Status: Acute Category: Medical Code(s): Z87.898 - Personal history of other specified conditions (4) Hep C w/o coma, chronic Current visit: Yes Status: Chronic Category: Medical Code(s): B18.2 - Chronic viral hepatitis C (5) Fever and chills Current visit: Yes Status: Acute Category: Medical Code(s): R50.9 - Fever, unspecified (6) Dehydration Current visit: Yes Status: Acute Category: Medical Code(s): E86.0 - Dehydration (7) Newly recognized murmur Current visit: Yes Status: Acute Category: Medical Code(s): R01.1 - Cardiac murmur, unspecified - Assessment and plan all Dx Assessment and Plan for all problems:: Continue PPI. Carafate added. Clear liquids only today. Transfuse with two units PRBC and recheck labs in the am. New murmur is concerning for infective endocarditis given her h/o IV drug use 3 weeks ago and fevers 103. It is possible that fevers are related to pylonephritis given her UTI and mild inflammation of right kidney on CT. Unlikely that temps were related to blood transfusion as she was febrile for 3 days prior to admission. Blood and urine culture obtained. Sed rate and CRP added to blood in lab. Will obtain Echo and cover with broad spectrum antibiotics. Will follow sensitivity of E. Coli on urine cx at [facility]. Mag citrate for constipation. If no BM 4 hours after mag citrate, give soap suds enema until clear.
--- NOTE | 2018-12-20 11:48 | Pharmacy Consult Notes ---
- Pharmacy Consult Date: 12/20/18 Time: 11:47 Referring provider: DR. PINA/MAURICIO Reason for Consult:: VANCOMYCIN DOSING Allergies and ADEs:: Allergies Allergy/AdvReac Type Severity Reaction Status Date / Time latex [LATEX] Allergy Unknown Verified 10/29/18 10:23 codeine Allergy Verified 10/29/18 10:23 Home Medications:: Home Medications Medication Instructions Recorded Confirmed Type Buprenorphine HCl/Naloxone HCl 1 tab PO DAILY 12/19/18 12/19/18 History [Buprenorphin-Naloxon 8-2 mg Sl] Buspirone HCl [Buspar 10mg 10 mg PO TID 12/19/18 12/19/18 History tablet] Quetiapine Fumarate 50 mg PO DAILY 12/19/18 12/19/18 History Quetiapine Fumarate 100 mg PO HS 12/19/18 12/19/18 History buPROPion HCl [Bupropion Xl] 300 mg PO DAILY 12/19/18 12/19/18 History Height: 1.73 m Weight: 48.251 kg Laboratory Results:: Laboratory Results - last 24 hr 12/19/18 14:25: WBC 5.5 D, RBC 2.79 L, Hgb 7.8 L*, Hct 25.5 L, MCV 91.3, MCH 27.8, MCHC 30.5 L, RDW 12.7, Plt Count 171, MPV 8.3, Neut % (Auto) 69.5, Lymph % (Auto) 20.5, [place] % (Auto) 6.6, Eos % (Auto) 3.3, Baso % (Auto) 0.2, Neut # (Auto) 3.8, Lymph # (Auto) 1.1, [place] # (Auto) 0.4, Eos # (Auto) 0.2, Baso # (Auto) 0.0 12/19/18 14:25: Sodium 136, Potassium 4.8, Chloride 102, Carbon Dioxide 25, Anion Gap 13.8, BUN 16, Creatinine 1.47 H, Estimated Creat Clear 63, Estimated GFR 40 L, Est GFR ( Amer) 49 L, Glucose 98 D, Calcium 9.3, Total Bilirubin 0.4, AST 15, ALT 42, Alkaline Phosphatase 136 H, Total Protein 6.9, Albumin 2.4 L, Globulin 4.5 H, Albumin/Globulin Ratio 0.5 L 12/19/18 14:25: Urine HCG, Qual Negative 12/19/18 14:25: Urine Opiates Screen Negative, Urine Methadone Screen Negative, Ur Barbituates Screen Negative, Ur Phencyclidine Scrn Negative, Ur Amphetamines Screen Negative, U Benzodiazepines Scrn Negative, Urine Cocaine Screen Negative, U Marijuana (THC) Screen Negative 12/19/18 16:35: PT 10.4, INR 1.00 12/19/18 16:35: Blood Type O Positive, Antibody Screen Negative, Crossmatch (AHG) See Detail 12/19/18 16:35: APTT 32.5 12/19/18 17:25: Blood Type Confirm O Positive 12/20/18 01:05: Hgb 8.5 L, Hct 26.9 L 12/20/18 10:00: WBC 6.0, RBC 3.10 L, Hgb 8.6 L, Hct 27.4 L, MCV 88.3, MCH 27.8, MCHC 31.5 L, RDW 13.6, Plt Count 189, MPV 7.9, Neut % (Auto) 64.4, Lymph % (Auto) 26.8, [place] % (Auto) 6.9, Eos % (Auto) 1.6, Baso % (Auto) 0.3, Neut # (Auto) 3.9, Lymph # (Auto) 1.6, [place] # (Auto) 0.4, Eos # (Auto) 0.1, Baso # (Auto) 0.0 12/20/18 10:00: Sodium 138, Potassium 4.8, Chloride 106, Carbon Dioxide 26, Anion Gap 10.8, BUN 14, Creatinine 1.44 H, Estimated Creat Clear 42, Estimated GFR 41 L, Est GFR ( Amer) 50 L, Glucose 84, Calcium 8.9 Medical History: Reports:: Anxiety, Depression, Kidney Stones Denies:: Cancer, Diabetes Mellitus Type 1, Diabetes Mellitus Type 2, MRSA Assessment and Plan (1) Anemia Current visit: Yes Status: Acute Qualifiers: Anemia type: unspecified type Qualified Code(s): D64.9 - Anemia, unspecified Category: Medical Code(s): D64.9 - Anemia, unspecified (2) Abdominal pain Current visit: Yes Status: Acute Qualifiers: Abdominal location: right lower quadrant Qualified Code(s): R10.31 - Right lower quadrant pain Category: Medical Code(s): R10.9 - Unspecified abdominal pain (3) H/O intravenous drug use in remission Current visit: Yes Status: Acute Category: Medical Code(s): Z87.898 - Personal history of other specified conditions (4) Hep C w/o coma, chronic Current visit: Yes Status: Chronic Category: Medical Code(s): B18.2 - Chronic viral hepatitis C (5) Fever and chills Current visit: Yes Status: Acute Category: Medical Code(s): R50.9 - Fever, unspecified (6) Dehydration Current visit: Yes Status: Acute Category: Medical Code(s): E86.0 - Dehydration (7) Newly recognized murmur Current visit: Yes Status: Acute Category: Medical Code(s): R01.1 - Car diac murmur, unspecified - Assessment and plan all Dx Assessment and Plan for all problems:: BASED ON PATIENT FACTORS, RECOMMEND VANCOMYCIN 1 GM IV Q24H. PHARMACY WILL FOLLOW DAILY AND ADJUST APPROPRIATE.
[2018-12-20 12:36] LABS: Microscopic, Urine URINE MICROSCOPIC (MICROSCOPIC)
[2018-12-20 12:38] LABS: Appearance,Urine CLEAR (Clear); Bilirubin,Urine Negative (Negative); Blood, Urine Negative (Negative); Color,Urine YELLOW (Yellow); Glucose,Urine (UA) Negative (Negative); Ketones,Urine Negative (Negative); Leukocyte Esterase,Urine 1+ (Negative); Protein,Urine Negative (Negative); Urobilinogen,Urine 0.2 EU/dl (0.2)
[2018-12-20 13:05] LABS: Bacteria,Urine 1+ /lpf
[2018-12-20 21:16] LABS: Hemoglobin 10.8 g/dL (12.2-16.2)
[2018-12-21 06:13] LABS: Basophils % 0.3 % (0.1-2.0); Eosinophils # 0.2 K/mm3 (0.0-0.4); Hematocrit 30.2 % (37.0-47.0); Lymphocytes # 1.5 K/mm3 (0.7-4.5); Lymphocytes % 27.6 % (10-50); Mean Corpuscular HGB Conc 32.1 g/dL (31.8-35.4); Mean Corpuscular Volume 87.7 fl (81-99); Mean Platelet Volume 8.1 fl (7.4-10.4); Monocytes # 0.4 K/mm3 (0.1-1.0); Monocytes % 8.1 % (1.7-9.3); Neutrophils # 3.3 K/mm3 (1.8-7.8); Platelet Count 169 K/mm3 (142-424); Red Blood Count 3.44 M/mm3 (4.20-5.40); Red Cell Distribution Width 14.1 % (11.5-17.5); White Blood Count 5.4 K/mm3 (4.8-10.8)
[2018-12-21 06:15] LABS: Hemoglobin 9.7 g/dL (12.2-16.2)
[2018-12-21 06:20] LABS: Calcium 8.3 mg/dL (8.5-10.1)
--- NOTE | 2018-12-21 07:24 | Progress Note ---
Internal Medicine - PN: Subj *Date: 12/21/18 *Time: 07:22 Interval history: Patient complains of being hungry this morning. The liquid diet is not quite feeling enough. She admits to some abdominal discomfort but better than yesterday after apparently having 4 bowel movements during the day. Nursing staff described the bowel movements as harry colored. Patient is continued to have low-grade fevers. She received 2 additional units of packed red blood cells yesterday with appropriate response in her hemoglobin and hematocrit. Hemoglobin has decreased this morning. Exam Vital signs and Labs for Last 24 Hours: Temp Pulse Resp BP Pulse Ox 97.6 F 51 L 14 98/60 L 98 12/21/18 04:15 12/21/18 04:15 12/21/18 04:15 12/21/18 04:28 12/21/18 04:15 Laboratory Results - last 24 hr 12/19/18 16:35: Blood Type O Positive, Antibody Screen Negative, Crossmatch (AHG) See Detail 12/20/18 10:00: WBC 6.0, RBC 3.10 L, Hgb 8.6 L, Hct 27.4 L, MCV 88.3, MCH 27.8, MCHC 31.5 L, RDW 13.6, Plt Count 189, MPV 7.9, Neut % (Auto) 64.4, Lymph % (Auto) 26.8, [place] % (Auto) 6.9, Eos % (Auto) 1.6, Baso % (Auto) 0.3, Neut # (Auto) 3.9, Lymph # (Auto) 1.6, [place] # (Auto) 0.4, Eos # (Auto) 0.1, Baso # (Auto) 0.0 12/20/18 10:00: Sodium 138, Potassium 4.8, Chloride 106, Carbon Dioxide 26, Anion Gap 10.8, BUN 14, Creatinine 1.44 H, Estimated Creat Clear 42, Estimated GFR 41 L, Est GFR ( Amer) 50 L, Glucose 84, Calcium 8.9 12/20/18 10:00: ESR > 140 H 12/20/18 10:00: C-Reactive Protein 31.6 H 12/20/18 12:30: Urine Color Yellow, Urine Appearance Clear, Urine pH 7.0, Ur Specific [place] 1.010, Urine Protein Negative, Urine Glucose (UA) Negative, Urine Ketones Negative, Urine Blood Negative, Urine Nitrate Negative, Urine Bilirubin Negative, Urine Urobilinogen 0.2, Ur Leukocyte Esterase 1+ A, Urine WBC 5-10, Ur Squamous Epith Cells 3-5, Urine Bacteria 1+ 12/20/18 21:00: Hgb 10.8 L D, Hct 33.0 L 12/21/18 05:45: WBC 5.4, RBC 3.44 L, Hgb 9.7 L D, Hct 30.2 L, MCV 87.7, MCH 28.2, MCHC 32.1, RDW 14.1, Plt Count 169, MPV 8.1, Neut % (Auto) 61.0, Lymph % (Auto) 27.6, [place] % (Auto) 8.1, Eos % (Auto) 3.0, Baso % (Auto) 0.3, Neut # (Auto) 3.3, Lymph # (Auto) 1.5, [place] # (Auto) 0.4, Eos # (Auto) 0.2, Baso # (Auto) 0.0 12/21/18 05:45: Sodium 140, Potassium 5.0, Chloride 108 H, Carbon Dioxide 22, Anion Gap 15.0, BUN 10 D, Creatinine 1.34 H, Estimated Creat Clear 45, Estimated GFR 45 L, Est GFR ( Amer) 54 L, Glucose 122 H D, Calcium 8.3 L I & O for Last 24 hours: Intake & Output 12/18/18 12/19/18 12/20/18 12/21/18 11:59 11:59 11:59 11:59 Intake Total 2420 / 2420 1339 / 1339 Balance 2420 / 2420 1339 / 1339 Weight 106 lb 6 oz 106 lb 6 oz Microbiology Reports for the Last 24 Hours: Microbiology 12/20/18 12:30 Urine,Clean Catch Urine Culture - Preliminary Gram Negative Rods Narrative: She is in no distress. Heart has a regular rate and rhythm. Lungs are clear. Abdomen is soft with some mild right upper quadrant discomfort this morning. Bowel sounds are present Assessment and Plan (1) Anemia Current visit: Yes Status: Acute Qualifiers: Anemia type: unspecified type Qualified Code(s): D64.9 - Anemia, unspecified Category: Medical Code(s): D64.9 - Anemia, unspecified (2) Abdominal pain Current visit: Yes Status: Acute Qualifiers: Abdominal location: right lower quadrant Qualified Code(s): R10.31 - Right lower quadrant pain Category: Medical Code(s): R10.9 - Unspecified abdominal pain (3) H/O intravenous drug use in remission Current visit: Yes Status: Acute Category: Medical Code(s): Z87.898 - Personal history of other specified conditions (4) Hep C w/o coma, chronic Current visit: Yes Status: Chronic Category: Medical Code(s): B18.2 - Chronic viral hepatitis C (5) Fever and chills Current visit: Yes Status: Acute Category: Medical Code(s): R50.9 - Fever, unspecified (6) Dehydration Current visit: Yes Status: Acute Category: Medical Code(s): E86.0 - Dehydration (7) Newly recognized murmur Current visit: Yes Status: Acute Category: Medical Code(s): R01.1 - Cardiac murmur, unspecified - Assessment and plan all Dx Assessment and Plan for all problems:: 1. Await cultures, at this time urine culture is growing a gram-negative anthony 2. Continue IV Protonix as well as Carafate. I will advance patient's diet to full liquids 3. Encourage the patient to ambulate today
--- NOTE | 2018-12-21 09:15 | Progress Note ---
Subjective Patient reports: feels better, bowel movement Exam Vital signs and Labs for Last 24 Hours: Temp Pulse Resp BP Pulse Ox 97.7 F 57 L 18 103/62 L 100 12/21/18 08:00 12/21/18 08:00 12/21/18 08:00 12/21/18 08:00 12/21/18 08:48 Laboratory Results - last 24 hr 12/19/18 16:35: Blood Type O Positive, Antibody Screen Negative, Crossmatch (AHG) See Detail 12/20/18 10:00: WBC 6.0, RBC 3.10 L, Hgb 8.6 L, Hct 27.4 L, MCV 88.3, MCH 27.8, MCHC 31.5 L, RDW 13.6, Plt Count 189, MPV 7.9, Neut % (Auto) 64.4, Lymph % (Auto) 26.8, [place] % (Auto) 6.9, Eos % (Auto) 1.6, Baso % (Auto) 0.3, Neut # (Auto) 3.9, Lymph # (Auto) 1.6, [place] # (Auto) 0.4, Eos # (Auto) 0.1, Baso # (Auto) 0.0 12/20/18 10:00: Sodium 138, Potassium 4.8, Chloride 106, Carbon Dioxide 26, Anion Gap 10.8, BUN 14, Creatinine 1.44 H, Estimated Creat Clear 42, Estimated GFR 41 L, Est GFR ( Amer) 50 L, Glucose 84, Calcium 8.9 12/20/18 10:00: ESR > 140 H 12/20/18 10:00: C-Reactive Protein 31.6 H 12/20/18 12:30: Urine Color Yellow, Urine Appearance Clear, Urine pH 7.0, Ur Specific [place] 1.010, Urine Protein Negative, Urine Glucose (UA) Negative, Urine Ketones Negative, Urine Blood Negative, Urine Nitrate Negative, Urine Bilirubin Negative, Urine Urobilinogen 0.2, Ur Leukocyte Esterase 1+ A, Urine WBC 5-10, Ur Squamous Epith Cells 3-5, Urine Bacteria 1+ 12/20/18 21:00: Hgb 10.8 L D, Hct 33.0 L 12/21/18 05:45: WBC 5.4, RBC 3.44 L, Hgb 9.7 L D, Hct 30.2 L, MCV 87.7, MCH 28.2, MCHC 32.1, RDW 14.1, Plt Count 169, MPV 8.1, Neut % (Auto) 61.0, Lymph % (Auto) 27.6, [place] % (Auto) 8.1, Eos % (Auto) 3.0, Baso % (Auto) 0.3, Neut # (Auto) 3.3, Lymph # (Auto) 1.5, [place] # (Auto) 0.4, Eos # (Auto) 0.2, Baso # (Auto) 0.0 12/21/18 05:45: Sodium 140, Potassium 5.0, Chloride 108 H, Carbon Dioxide 22, Anion Gap 15.0, BUN 10 D, Creatinine 1.34 H, Estimated Creat Clear 45, Estimated GFR 45 L, Est GFR ( Amer) 54 L, Glucose 122 H D, Calcium 8.3 L I & O for Last 24 hours: Intake & Output 12/18/18 12/19/18 12/20/18 12/21/18 11:59 11:59 11:59 11:59 Intake Total 2420 / 2420 1699 / 1699 Balance 2420 / 2420 1699 / 1699 Weight 106 lb 6 oz 106 lb 6 oz Microbiology Reports for the Last 24 Hours: Microbiology 12/20/18 12:30 Urine,Clean Catch Urine Culture - Preliminary Gram Negative Rods - Constitutional no acute distress - *Routine Respiratory Exam Absent: respiratory distress - *Routine Cardiovascular Exam Present: RRR Progress Note: A&P (1) Anemia Status: Acute Current Visit: Yes (2) Abdominal pain Status: Acute Current Visit: Yes (3) H/O intravenous drug use in remission Status: Acute Current Visit: Yes (4) Hep C w/o coma, chronic Status: Chronic Current Visit: Yes (5) Fever and chills Status: Acute Current Visit: Yes (6) Dehydration Status: Acute Current Visit: Yes (7) Newly recognized murmur Status: Acute Current Visit: Yes (8) Gastric ulcer Status: Acute Assessment and plan: continue PPI/Carafate f/u repeat H/H Current Visit: Yes
[2018-12-21 17:27] LABS: Hematocrit 32.2 % (37.0-47.0); Hemoglobin 10.6 g/dL (12.2-16.2)
--- NOTE | 2018-12-22 07:29 | Progress Note ---
Subjective Patient reports: no new complaints, feels better, bowel movement Exam Vital signs and Labs for Last 24 Hours: Temp Pulse Resp BP Pulse Ox 98.0 F 68 16 119/67 96 12/22/18 04:00 12/22/18 04:00 12/22/18 04:00 12/22/18 04:00 12/22/18 04:00 Laboratory Results - last 24 hr 12/21/18 17:15: Hgb 10.6 L, Hct 32.2 L I & O for Last 24 hours: Intake & Output 12/19/18 12/20/18 12/21/18 12/22/18 11:59 11:59 11:59 11:59 Intake Total 2420 / 2420 1699 / 1699 990 / 990 Balance 2420 / 2420 1699 / 1699 990 / 990 Weight 164 lb 7.437 oz 164 lb 7.437 oz 167 lb 7 oz Microbiology Reports for the Last 24 Hours: Microbiology 12/20/18 12:30 Urine,Clean Catch Urine Culture - Preliminary Gram Negative Rods - Constitutional no acute distress - *Routine Respiratory Exam Absent: respiratory distress - *Routine Abdominal Exam Present: soft Progress Note: A&P (1) Anemia Status: Acute Current Visit: Yes (2) Abdominal pain Status: Acute Current Visit: Yes (3) H/O intravenous drug use in remission Status: Acute Current Visit: Yes (4) Hep C w/o coma, chronic Status: Chronic Current Visit: Yes (5) Fever and chills Status: Acute Current Visit: Yes (6) Dehydration Status: Acute Current Visit: Yes (7) Newly recognized murmur Status: Acute Current Visit: Yes (8) Gastric ulcer Status: Acute Assessment and plan: No sign of ongoing hemorrhage. Continue PPI/Carafate Follow-up as outpatient (status post esophagogastroduodenoscopy) Repeat EGD in 6-8 weeks Current Visit: Yes
--- NOTE | 2018-12-22 08:53 | Discharge Summary ---
General - General Admission date:: 12/19/18 Discharge date: 12/22/18 HPI HPI: 33 year old female with h/o IV drug use, Hep C, and depression including several psychiatric hospitalizations presented to PCP office yesterday with a 3 day history of fever, chills, body aches, abd pain and nausea/vomiting. Assessment was unremarkable with exception of non-specific RLQ tenderness. She was sent for labs which revealed HGB 8.6 and creatinine 1.6. Patient was brought in today for repeat labs, IVF's and CT imaging. Repeat labs showed HGB 7.8 with slight improvement in creat 1.4 She continues to have subjective fevers, chills and body aches. + nausea, no vomiting today. No diarrhea. Reports chronic constipation with no BM in "10 days." States stool was dark prior to that. Denies excessive menstrual bleeding, last menses was approx 3 months ago. Urine preg and urine drug screen were negative. No recent weight loss, loss of appetite, fatigue, easy bruising/bleeding prior to this week. Reported to nursing that last drug use was "3 weeks ago." Patient was admitted for transfusion, CT imaging and surgery consult. Hospital Course Hospital Course: Patient was admitted to hospital. Extensive work-up was undertaken including CT scan of the abdomen which was essentially negative. Given her evidence of blood loss surgery was consulted and upper endoscopy was done which revealed a gastric ulcer with sharp borders without active bleeding but certainly consistent with a source of her blood loss. She was placed on proton pump inhibitors and Carafate. She tolerated this well. After transfusio n her hemoglobin marla to expected levels. She did spike a temperature to 103 F. Work-up ensued because of her history of IV drug abuse including echocardiogram, blood cultures and urine cultures. Blood cultures been negative, urine cultures have grown E. coli, pansensitive to tested agents, and she was feeling much better this morning. Echo reports reviewed. This morning patient feels much better, we will send her home with Levaquin and her GI medications, close follow-up in our office and with surgery as noted. Objective Vital signs: Temp Pulse Resp BP Pulse Ox 99.4 F 60 16 122/74 98 12/22/18 08:00 12/22/18 08:00 12/22/18 08:00 12/22/18 08:00 12/22/18 08:00 Narrative: Patient is alert, pleasant. Looks much better. Much more energetic. No JVD. Lungs are clear, heart rate regular without murmurs. Abdomen soft nontender. No edema clubbing or cyanosis. Neurologically intact. No scleral icterus, splinter hemorrhages or stigmata of liver disease. Results Labs on day of discharge: Labs from last 24 hours 12/21/18 17:15 Hgb 10.6 L Hct 32.2 L DS: Diagnosis - Discharge Diagnosis (1) Anemia Status: Resolved (2) Abdominal pain Status: Resolved (3) H/O intravenous drug use in remission Status: Chronic (4) Hep C w/o coma, chronic Status: Chronic (5) Fever and chills Status: Resolved (6) Dehydration Status: Resolved (7) Newly recognized murmur Status: Chronic (8) Gastric ulcer Status: Chronic (9) Anemia due to GI blood loss Status: Resolved Discharge Plan - Patient Discharge Instructions ACTIVITY: Continue current activity DIET: continue same diet Patient Instructions: Hepatitis C, Dehydration, Acute Abdominal Pain, Anemia, Upper GI Endoscopy - Follow up Plan Follow up with: Ford Colmenares MD [Staff Physician] - 1 week Dominique Butcher APRN [Nurse Practitioner] - 12/24/18 9:00 am Disposition: Home, Self-Group Home Medications: Home Medications Medication Instructions Recorded Confirmed Type Buprenorphine HCl/Naloxone HCl 1 tab PO DAILY 12/19/18 12/19/18 History [Buprenorphin-Naloxon 8-2 mg Sl] Buspirone HCl [Buspar 10mg 10 mg PO TID 12/19/18 12/19/18 History tablet] Quetiapine Fumarate 50 mg PO DAILY 12/19/18 12/19/18 History Quetiapine Fumarate 100 mg PO HS 12/19/18 12/19/18 History buPROPion HCl [Bupropion Xl] 300 mg PO DAILY 12/19/18 12/19/18 History Pantoprazole Sodium [Protonix 40mg 40 mg IV BID #60 vial 12/22/18 Rx Vial] Sucralfate [Carafate 1gm/10mL 1 gm PO ACHS #120 udc 12/22/18 Rx Susp] levoFLOXacin [Levaquin 500mg 500 mg PO DAILY #7 tab 12/22/18 Rx tab] Prescriptions/Medication Reconciliation: New levoFLOXacin [Levaquin 500mg tab] 500 mg PO DAILY #7 tab Pantoprazole Sodium [Protonix 40mg Vial] 40 mg IV BID #60 vial Sucralfate [Carafate 1gm/10mL Susp] 1 gm PO ACHS #120 udc Continued Buspirone HCl [Buspar 10mg tablet] 10 mg PO TID buPROPion HCl [Bupropion Xl] 300 mg PO DAILY Quetiapine Fumarate 100 mg PO HS Quetiapine Fumarate 50 mg PO DAILY Buprenorphine HCl/Naloxone HCl [Buprenorphin-Naloxon 8-2 mg Sl] 1 tab PO DAILY
--- NOTE | 2018-12-22 20:41 | Cardiology Report ---
PROCEDURE: 2-D M-mode and color Doppler study INDICATIONS FOR THE TEST: Chest pain COPD Heart Murmur+ Tobacco Smoking+ Palpitations Fatigue Syncope Edema Hypertension Diabetes Mellitus Rheumatic Fever SOB WHYTE Obesity Hyperlipidemia Family History HD Additional History IV DRUG USE 3 WKS AGO, HEP C, MURMUR PATIENT INFORMATION HEIGHT: 68 WEIGHT:106 GENDER: Female B/P:106/46 2-D/M-MODE INTERPRETATION: 2-D MEASUREMENTS OBSERVED VALUES IN CMS Right Ventricular Dimension (RVDd) 2.5 Interventricular Septum (Thickness)(IVsd) 1.1 Left Ventricular Internal Dimensions(LVIDd) 5.4 Left Ventricular Posterior Wall (Thickness)(LVPWd) 0.9 Aortic Root 2.8 Aortic Cusp Separation 1.9 Left Atrial Dimensions (LAD) 3.9 2D 1. Left atrium is normal size, left ventricle is normal size, left ventricle wall thickness is upper normal, there is preserved left ventricular systolic function, visually estimated ejection fraction 55% with no regional wall motion abnormality. 2. The right atrium and right ventricle are mildly enlarged with normal contractility. 3. The aortic valve is grossly normal. 4. The mitral and tricuspid valve is thickened. 5. The pulmonic valve is poorly present 6. No significant pericardial effusion noted. DOPPLER INTERROGATION: Doppler interrogation of the aortic, mitral and tricuspid valvular presence of mild mitral and moderate tricuspid regurgitation, calculated right ventricular 47 mmHg consistent with moderate pulmonary hypertension, diastolic parameters are within normal range. Inferior vena cava is not well visualized. CONCLUSION: 1. Normal left ventricular size, preserved ventricular systolic function visually estimated ejection fraction of 55% with no regional wall motion abnormality. Diastolic parameters are within normal range. 2. Mildly enlarged right ventricle with normal contractility. 3. Mild mitral and moderate tricuspid regurgitation, calculated right ventricular systolic pressure is 47 mmHg consistent with moderate hypertension. 4. No significant pericardial effusion noted.
== END 2018-12-22 11:03 | disposition home or self-care (01) | DRG 812 ==
LOC: 2ND 14:11 → INF 14:11 → UNDODISOB 16:52 → OBSVTOIN 17:33 → 2ND 17:34
PROVIDERS: ADMIT Internal Medicine Adolescent Medicine; ATTEND Internal Medicine Adolescent Medicine
CPT/HCPCS: 36415; 71260; 74178; 80048; 80053; 80074; 80305; 81001; 81025; 82248; 82607; 82652; 82728; 83036; 83540; 83550; 84443; 84703; 85014; 85018; 85025; 85610; 85651; 85730; 86140; 86592; 86695; 86703; 86790; 86850; 87040; 87086; 87088; 87186; 87521; 87522; 87902; 88305; 93306; 96360; G0378; G0432; J0571; J2543; J3370; P9016; Q9967

== ENCOUNTER → 2018-12-26 13:00 | Outpatient (CLI) | payer MEDICAID, SELFPAY ==
[2018-12-26 13:17] LABS: Basophils % 0.5 % (0.1-2.0); Eosinophils # 0.2 K/mm3 (0.0-0.4); Eosinophils % 2.7 % (0.1-12.0); Hemoglobin 13.8 g/dL (12.2-16.2); Lymphocytes # 2.3 K/mm3 (0.7-4.5); Mean Corpuscular HGB Conc 30.7 g/dL (31.8-35.4); Mean Corpuscular Hemoglobin 28.4 pg (27.0-31.2); Mean Corpuscular Volume 92.7 fl (81-99); Mean Platelet Volume 7.7 fl (7.4-10.4); Monocytes # 0.3 K/mm3 (0.1-1.0); Monocytes % 5.2 % (1.7-9.3); Neutrophils # 3.3 K/mm3 (1.8-7.8); Neutrophils % 53.5 % (37.0-80.0); Platelet Count 437 K/mm3 (142-424); Red Blood Count 4.85 M/mm3 (4.20-5.40); Red Cell Distribution Width 13.1 % (11.5-17.5); White Blood Count 6.1 K/mm3 (4.8-10.8)
[2018-12-26 13:35] LABS: Alanine Aminotransferase 62 U/L (12-78); Albumin Level 2.8 gm/dL (3.4-5.0); Albumin/Globulin Ratio 0.5 (1.1-1.8); Alkaline Phosphatase 171 U/L (46-116); Anion Gap 10.7 mEq/L (5-15); Aspartate Amino Transferase 26 U/L (15-37); Bilirubin,Total 0.3 mg/dL (0.2-1.0); Blood Urea Nitrogen 21 mg/dL (7-18); Calcium 9.6 mg/dL (8.5-10.1); Carbon Dioxide 30 mmol/L (21.0-32.0); Chloride 101 mmol/L (98-107); Creatinine,Serum 1.62 mg/dL (0.55-1.02); Estimated Glomerular Filt Rate 36 ml/min (>60); GFR (African American) 44 ML/MIN (>60); Globulin 5.4 gm/dl (1.3-3.2); Glucose 94 mg/dL (74-106); Potassium 4.7 mmoL/L (3.5-5.1); Sodium 137 mmol/L (136-145); Total Protein,Serum 8.2 gm/dL (6.4-8.2)
== END ==
PROVIDERS: Visit Provider Nurse Practitioner Family
DX: D64.9 Anemia, unspecified (principal); R10.9 Unspecified abdominal pain; K59.00 Constipation, unspecified
CPT/HCPCS: 36415; 80053; 85025

== ENCOUNTER → 2019-02-25 16:24 | Outpatient (CLI) | payer MEDICAID, SELFPAY ==
[2019-02-25 16:42] LABS: Hematocrit 39.7 % (37.0-47.0); Hemoglobin 12.2 g/dL (12.2-16.2)
[2019-02-25 17:53] LABS: HCG Qualitative, Serum Negative (Negative)
== END ==
PROVIDERS: Visit Provider Surgery
DX: Z01.818 Encounter for other preprocedural examination (principal); K25.9 Gastric ulcer, unspecified as acute or chronic, without hemorrhage or perforation; K80.20 Calculus of gallbladder without cholecystitis without obstruction
CPT/HCPCS: 36415; 84703; 85014; 85018

== ENCOUNTER 2019-11-25 15:05 | Emergency (ER) | payer OTHER, SELFPAY ==
[2019-11-25] VITALS (9 sets, daily range): BP systolic 92–111; BP diastolic 36–53; PULSE 69–99; RESP 16–18; TEMP 36.6–37.2; O2SAT 96–100; BMI 24.3
[2019-11-25 15:16] LABS: Microscopic, Urine URINE MICROSCOPIC (MICROSCOPIC)
[2019-11-25 15:19] LABS: Appearance,Urine CLEAR (Clear); Bilirubin,Urine Negative (Negative); Blood, Urine 2+ (Negative); Color,Urine YELLOW (Yellow); Glucose,Urine (UA) Negative (Negative); Ketones,Urine Negative (Negative); Leukocyte Esterase,Urine 2+ (Negative); Nitrate,Urine POSITIVE (Negative); PH,Urine 6.5 (5.0-8.5); Protein,Urine 2+ (Negative); Urobilinogen,Urine 0.2 EU/dl (0.2)
[2019-11-25 15:22] LABS: Urine Pregnancy, HCG Qual. Negative (Negative)
--- NOTE | 2019-11-25 15:23 | CT_ITS ---
PROCEDURE: CT ABDOMEN PELVIS WO CON CLINICAL INDICATION: yuliana flank pain COMPARISON: CHESTW CT chest w con from 12/19/[address] abdomen pelvis wo/w con from 12/19/2018 TECHNIQUE: Axial images obtained with sagittal and coronal reformats. All CT scans at the facility use one or more dose reduction, viz: automated exposure control, ma/kV adjustment per patient size (including targeted exams where dose is matched to indication, i.e. head), or iterative reconstruction technique. FINDINGS: Lung bases are clear. Unenhanced liver, adrenal glands, pancreas, and the spleen is unremarkable. The patient is status post cholecystectomy. Mild right renal hydronephrosis and perirenal edema is noted. There is a subtle 2.2 millimeter distal right ureteral calculus with secondary mild right hydroureter. There are multiple nonobstructive left renal calculi of which the largest is in the lower pole measuring 2 millimeters. Is no left hydronephrosis. There is a probable nonobstructive 3.8 millimeter distal left ureteral calculus not present on the 12/19/2018 CT examination. The aorta, small and large bowel, appendix, soft tissues, and bony structures are unremarkable. Bilateral salpingectomy sutures are noted. IMPRESSION: Nonobstructive left renal calculi, probable nonobstructive distal left ureteral calculus, obstructive 2.2 millimeter distal right ureteral calculus, status post cholecystectomy Dictated by: Guru Umaña 11/25/2019 16:37 Electronically signed by Guru Umaña in [place] 11/25/2019 16:37
--- NOTE | 2019-11-25 15:28 | HMH.EDGENADL ---
ED Disposition Clinical Impression: Right ureteral calculus, Pyelonephritis, Septic shock Disposition: Xfer Short-Term Hosp Condition on Discharge: Fair Instructions: DI for Acute Abdomen Referrals: Provider,Referral, MD [Primary Care Provider] - Forms: Transfer Record - ED - Critical Care Critical Care Time: Yes Attestation: On 11/25/19, the high probability of a clinically significant, sudden or life threatening deterioration of the following system(s) required my full and direct attention, intervention and personal management. The time I documented below is in addition to time spent performing reported procedures but includes the following listed in this critical care notation. Total Critical Care Time: 40 Vital system(s) involved:: Shock (Septic) My critical care processes included: Assessment & monitoring of V/S, Initial and Re-exams, Data Review/Interpretation, Coordinating Care, Medication Orders and management, Documentation Medical Decision Making - Medical Records Medical records reviewed: Yes: I reviewed the patient's medical records. - Oneal Inquiry Pt receiving controlled substance: No Oneal was queried for this patient: Yes Reference #:: [id number] Comment: 37 rxs, last rx suboxone 11/09/19 Vital Signs: 11/25/19 15:09 11/25/19 15:44 11/25/19 16:13 Temperature 98.7 F Temperature Source Oral Pulse Rate [Left Radial] 99 H 85 77 Respiratory Rate 18 Blood Pressure [Right Arm] 93/53 L 111/52 L 95/36 L Blood Pressure Mean [Right Arm] 66 71 55 Blood Pressure Source [Right Arm] Automatic Cuff Automatic Cuff Automatic Cuff Blood Pressure Position [Right Arm] Right Lateral Sitting Sitting 02 Sat by Pulse Oximetry 96 98 98 Oxygen Delivery Method Room Air Room Air Room Air 11/25/19 16:43 11/25/19 17:02 11/25/19 17:30 Temperature Temperature Source Pulse Rate [Left Radial] 75 72 70 Respiratory Rate 16 18 Blood Pressure [Right Arm] 93/40 L 94/41 L 97/45 L Blood Pressure Mean [Right Arm] 57 58 62 Blood Pressure Source [Right Arm] Automatic Cuff Automatic Cuff Blood Pressure Position [Right Arm] Supine Sitting 02 Sat by Pulse Oximetry 100 99 100 Oxygen Delivery Method Room Air 11/25/19 18:40 11/25/19 19:00 Temperature 98.9 F 97.8 F Temperature Source Oral Oral Pulse Rate [Left Radial] 69 98 H Respiratory Rate 18 17 Blood Pressure [Right Arm] 92/47 L 101/51 L Blood Pressure Mean [Right Arm] 62 67 Blood Pressure Source [Right Arm] Automatic Cuff Automatic Cuff Blood Pressure Position [Right Arm] Sitting Sitting 02 Sat by Pulse Oximetry 100 98 Oxygen Delivery Method Room Air - Lab Data Lab results reviewed: Yes: I reviewed the patient's lab results. Lab Results 11/25/19 15:10: Urine Color Yellow, Urine Appearance Clear, Urine pH 6.5, Ur Specific [place] 1.020, Urine Protein 2+, Urine Glucose (UA) Negative, Urine Ketones Negative, Urine Blood 2+, Urine Nitrate Positive, Urine Bilirubin Negative, Urine Urobilinogen 0.2, Ur Leukocyte Esterase 2+ A, Urine RBC 10-20, Urine WBC 20-50, Ur Squamous Epith Cells 3-5, Urine Bacteria 3+ 11/25/19 15:10: Urine HCG, Qual Negative 11/25/19 15:24: WBC 16.5 H, RBC 3.65 L, Hgb 11.0 L, Hct 33.0 L, MCV 90.3, MCH 30.2, MCHC 33.5, RDW 13.2, Plt Count 143, MPV 8.2, Neut % (Auto) 87.7 H, Lymph % (Auto) 8.4 L, Sabine % (Auto) 3.3, Eos % (Auto) 0.5, Baso % (Auto) 0.2, Neut # (Auto) 14.5 H, Lymph # (Auto) 1.4, Sabine # (Auto) 0.5, Eos # (Auto) 0.1, Baso # (Auto) 0.0, Total Counted 100, Neutrophils % (Manual) 77 H, Lymphocytes % (Manual) 18, Monocytes % (Manual) 5, Platelet Estimate Normal, RBC Morphology Normal 11/25/19 15:24: Sodium 136, Potassium 4.1, Chloride 100, Carbon Dioxide 27, Anion Gap 13.1, BUN 18 H, Creatinine 1.40 H, Estimated Creat Clear 64, Estimated GFR 43 L, Est GFR ( Amer) 51 L, Glucose 152 H, Calcium 9.3, Total Bilirubin 1.2, AST 43 H, ALT 58, Alkaline Phosphatase 97, Total Protein 7.9, Albumin 3.9, Globulin 4.0 H, Albumin/Globulin Ratio 1.0 L 0
[2019-11-25 15:31] LABS: Basophils % 0.2 % (0.1-2.0); Eosinophils # 0.1 K/mm3 (0.0-0.4); Eosinophils % 0.5 % (0.1-12.0); Lymphocytes # 1.4 K/mm3 (0.7-4.5); Lymphocytes % 8.4 % (10-50); Mean Corpuscular HGB Conc 33.5 g/dL (31.8-35.4); Mean Corpuscular Hemoglobin 30.2 pg (27.0-31.2); Mean Corpuscular Volume 90.3 fl (81-99); Mean Platelet Volume 8.2 fl (7.4-10.4); Monocytes # 0.5 K/mm3 (0.1-1.0); Monocytes % 3.3 % (1.7-9.3); Neutrophils # 14.5 K/mm3 (1.8-7.8); Neutrophils % 87.7 % (37.0-80.0); Platelet Count 143 K/mm3 (142-424); Red Blood Count 3.65 M/mm3 (4.20-5.40); Red Cell Distribution Width 13.2 % (11.5-17.5); White Blood Count 16.5 K/mm3 (4.8-10.8)
[2019-11-25 15:34] LABS: Chloride 100 mmol/L (98-107); Potassium 4.1 mmoL/L (3.5-5.1); Sodium 136 mmol/L (136-145)
[2019-11-25 15:37] LABS: Alanine Aminotransferase 58 U/L (12-78); Albumin Level 3.9 g/dl (3.5-5.0); Alkaline Phosphatase 97 U/L (38-126); Anion Gap 13.1 mEq/L (5-15); Aspartate Amino Transferase 43 U/L (14-36); Bilirubin,Total 1.2 mg/dl (0.2-1.3); Blood Urea Nitrogen 18 mg/dl (7-17); Calcium 9.3 mg/dl (8.4-10.2); Carbon Dioxide 27 mmol/L (22.0-30.0); Creatinine Clearance Estimated 64 mL/min (50-200); Estimated Glomerular Filt Rate 43 ml/min (>60); GFR (African American) 51 ML/MIN (>60); Glucose 152 mg/dl (74-100); Total Protein,Serum 7.9 g/dl (6.3-8.2)
[2019-11-25 15:42] LABS: Bacteria,Urine 3+ /lpf; WBC,Urine 20-50 #/hpf (0-3)
--- NOTE | 2019-11-25 15:44 | PC.NURSE ---
notified rad of ct order
--- NOTE | 2019-11-25 15:52 | PC.NURSE ---
pt to ct
--- NOTE | 2019-11-25 15:54 | PC.NURSE ---
Pt to rad
--- NOTE | 2019-11-25 16:05 | PC.NURSE ---
Pt returned from rad
[2019-11-25 16:07] LABS: Lactic Acid 1.3 mmol/L (0.7-2.1)
[2019-11-25 16:12] LABS: MANUAL DIFFERENTIAL MANUAL DIFFERENTIAL (MANUAL DIFF)
[2019-11-25 16:34] LABS: Lymphocytes % 18 % (10-50); Monocytes % 5 % (2-9); Neutrophils % 77 % (42-76); Platelet Estimate Normal; Total Cells Counted 100
[2019-11-25 16:35] LABS: RBC Morphology Normal
--- NOTE | 2019-11-25 16:53 | PC.NURSE ---
speaking to Dr Mackenzie
--- NOTE | 2019-11-25 16:57 | PC.NURSE ---
notified that pt meets criteria for sepsis bolus, verbal order given
--- NOTE | 2019-11-25 17:15 | PC.NURSE ---
placed call to [facility] for transfer.
--- NOTE | 2019-11-25 17:30 | INFXCTL.NOTE ---
Sepsis bolus complete, notified MD that pt was still hypotensive and stated he did not wish to initiate vasopressors
--- NOTE | 2019-11-25 17:39 | PC.NURSE ---
Dr Soto speaking to Dr Panchal at [facility].
--- NOTE | 2019-11-25 17:47 | PC.NURSE ---
[facility] to call back with room
--- NOTE | 2019-11-25 18:02 | PC.NURSE ---
Lab here for COVID TEST
--- NOTE | 2019-11-25 18:03 | PC.NURSE ---
Dr Soto spoke with Dr Loja, he accepting pt at [facility]. Awaiting call for room assignment.
--- NOTE | 2019-11-25 18:50 | PC.NURSE ---
shift change report given to hannahrn
--- NOTE | 2019-11-25 19:29 | PC.NURSE ---
attempted to give report to [facility]. was told a scene shifter nurse would call back to receive report.
--- NOTE | 2019-11-25 19:40 | PC.NURSE ---
[facility] called wanting to know if the pt was in route to their facility yet. this nurse called to give report to pt assigned nurse melissa HARDWICK is at [facility] to take pt. spoke with a nurse who said it was okay to go ahead and send pt and a nurse would call back for report.
--- NOTE | 2019-11-25 19:57 | PC.NURSE ---
report called to leighann guadarrama RN
[2019-11-27 15:12] LABS: Covid-19 Nasal PCR Sendout Lex NOT DETECTED
== END 2019-11-25 20:10 | disposition short-term general hospital (02) ==
PROVIDERS: Emergency Provider Emergency Medicine
DX: N20.1 Calculus of ureter (principal); N12 Tubulo-interstitial nephritis, not specified as acute or chronic; A41.9 Sepsis, unspecified organism; F41.8 Other specified anxiety disorders; F17.210 Nicotine dependence, cigarettes, uncomplicated; Z87.442 Personal history of urinary calculi; Z91.040 Latex allergy status; Z88.5 Allergy status to narcotic agent
CPT/HCPCS: 74176; 80053; 81001; 81025; 83605; 85007; 85025; 87040; 87077; 87086; 87088; 87186; 96365; 96366; 96367; 96375; 99285; J2405; U0004

== ENCOUNTER → 2019-12-14 13:57 | Outpatient (CLI) | payer OTHER, SELFPAY ==
--- NOTE | 2019-12-14 14:05 | XR_ITS ---
PROCEDURE: XR KUB CLINICAL INDICATION: kidney stone COMPARISON: CT ABDOMEN PELVIS WO CON from 11/25/2019 FINDINGS: There are bilateral ureteral stents in place. Small stones are present on the left overlying the left kidney at 1-2 mm. A 2-3 mm stone is present along the distal aspect of the left ureteral stent. The right ureteral stent appears to be in good position. The proximal aspect of the left ureteral stent may be in the proximal ureteral region as opposed to the left renal pelvis. IMPRESSION: Bilateral ureteral stents in place. Left ureteral stent may be somewhat distracting distally with the proximal aspect likely in the region of the proximal ureter with a small stone along the lower aspect of the left ureteral stent. Dictated by: Julian Garcia MD 12/14/2019 14:43 Electronically signed by Julian Garcia MD in [place] 12/14/2019 14:43
== END ==
PROVIDERS: Visit Provider Urology
DX: N20.0 Calculus of kidney (principal)
CPT/HCPCS: 74018

== ENCOUNTER → 2019-12-15 12:57 | Outpatient (CLI) | payer OTHER, SELFPAY ==
[2019-12-15 14:41] LABS: Coronavirus 19 IgG Antibody Negative (Negative); Coronavirus 19 IgM Antibody Negative (Negative)
--- NOTE | 2019-12-15 19:04 | P.PN_ITS ---
[facility] Anesthesia Record Part II Discharge Time: 16:35 Destination: Surgical Day Care (OP Surgery) PACU nurse assessment reviewed?: Yes Patient Condition:: Good Anesthesia Complications:: None Swallowing reflex intact?: Yes Cyanosis?: No Blood Pressure: 98/55 Pulse Rate: 61 Temperature: 97.6 F Mental Status: Alert & Oriented Pain level:: 0 Nausea and/or vomitting:: None Intake, IV Amount: 0
[2019-12-15 19:05] VITALS: BP 98/55; PULSE 61; TEMP 36.4
== END ==
PROVIDERS: Visit Provider Urology
DX: Z03.818 Encounter for observation for suspected exposure to other biological agents ruled out (principal)
CPT/HCPCS: 36415; 86328

== ENCOUNTER 2019-12-15 13:09 | Day surgery (SDC) | payer OTHER, SELFPAY ==
[2019-12-14 15:40] VITALS: BMI 22.1
[2019-12-15] VITALS (9 sets, daily range): BP systolic 95–118; BP diastolic 42–60; PULSE 50–63; RESP 14–20; TEMP 36.1–36.4; O2SAT 99–100
[2019-12-15 14:07] LABS: Urine Pregnancy, HCG Qual. Negative (Negative)
--- NOTE | 2019-12-15 14:31 | HMH.ANESCL ---
[facility] Anesthesia Checklist - Patient Identification Patient Identification: Arm Band, Verbal (Name & ) - Structural Data Admitted From: Home Planned Operative Procedure/s: cysto Consent for Planned Operative Procedure(s) Verified: Yes Verified Documents: History and Physical - NPO Status Verified Time NPO: 00:00 - Chart Verification Results Verified: CBC, BMP - Additional verifications Patient : No Anesthesia Reactions: No Hx Blood Transfusions: Yes Blood Transfusion Reaction: No Cephalosporin Allergy: No Previous Colonoscopy: Yes - Cardiovascular Assessment Heart Sounds: S1 & S2 Pulse Strength: Baseline Pulse Rhythm: Regular Peripheral Edema: No - Airway Assessment C-Spine Mobility Assessed: Yes TMJ Mobility Assessed: Yes Dentition: Good Dentition - Neurological Assessment Level of Consciousness: Awake, Alert, Appropriate Hx Seizures: No Numbness or tingling in extremities: No - Anesthesia Plan Anesthesia Risk discussed: Yes Anesthesia Plan: Verified ASA Class: II Anesthesia Type: General [facility] History I have reviewed the patient's past medical history: Yes Medical History: Reports:: Anxiety, Depression, Kidney Stones Denies:: Cancer, Diabetes Mellitus Type 1, Diabetes Mellitus Type 2, Internal Pacemaker, MRSA, Seizures *Have you ever received a pneumonia vaccine?: No *Have you received a flu vaccine this season?: No Other Medical History: Reports: Anemia, Liver Disease, Other. Denies: Blood Transfusion Reaction Anesthesia experience/problems:: none Other Surgeries: Yes: No Previous Surgery, , Other. No: Pacemaker Amputation: No Fractures: Yes (ANKLE) - *Social History Last grade of school completed: High school graduate Smoking Status: Current every day smoker Tobacco Type: e-cigarettes # Packs/Day (cigarettes): 1 Alcohol Intake: never Alcohol Intake Frequency:: a few times a month Substance Use Type: former substance user *Occupational Status:: unemployed Housing: house Household Members: family, children *Travel in the last 8 weeks: None - Psychiatric History Pschychiatric History:: Reports:: Anxiety, Depression Family Hx:: No significant family history
--- NOTE | 2019-12-15 16:09 | P.PN_ITS ---
[facility] Anesthesia Record Part I Intake, IV Amount: 400 Estimated blood loss (mL): 0 Urine output (mL): 0 Blood Products used (#): none Blood Pressure: 100/60 SaO2: 99 Pulse Rate: 52 Respiratory Rate: 20 Temperature: 97.0 F Patient is:: Drowsy, Stable Stable to PACU at:: 16:05
--- NOTE | 2019-12-15 16:31 | P.OP_ITS ---
Date of procedure: 12/15/19 Pre-op Diagnosis:: Bilateral ureteral stents Post-op Diagnosis:: Bilateral ureteral stent, left ureteral calculus Procedure performed:: Cystoscopy with bilateral stent removal, bilateral ureteroscopy with left ureteral stone extraction Surgeon:: Mando Shane MD ELECTRICAL LABORATORY TECHNICIAN:: Sandip Mary Anesthesia: GETA Estimated blood loss (mL): 0 Clinical Note:: 34-year-old white female with history of bilateral distal ureteral stones status post bilateral stent placement in [place] on November 25. Operative findings:: Cystoscopy revealed bilateral stents in both ureters. The bladder otherwise was within normal limits. Stents removed and bilateral ureteroscopy performed with a 4 mm stone noted in the left mid ureter. Stone was removed with basket extraction. There is no evidence of stone in the right ureter. Operative note:: Patient taken to the operating room after informed consent was obtained. Placed on the operating table in the supine position and general anesthesia administered. Preoperative antibiotics administered and sequential compression devices placed. She was then placed into the dorsal lithotomy position prepped and draped in the standard surgical fashion. 22 Wilner passed into the urethra and into the bladder without difficulty. The stents were noted from each ureter. Flexible graspers were passed through the scope and the right stent was removed without difficulty. The identical procedure was performed on the left side without difficulty. The cystoscope then removed and our semirigid ureteroscope passed into the bladder and into the left ureter. Passed up to the left mid ureter where a 4 mm stone was noted. A 2.4 Bangladeshi nitinol stone basket was passed through the ureteroscope and the stone was engaged and removed without difficulty. The scope was repassed into the left ureter and no other stones were noted. Ureteroscope was then placed into the right ureter and up to the proximal ureter and no other stones were noted. Scope removed and the bladder drained. Urojet placed into the urethra. Patient tolerated procedure well no complications. She was discharged to the recovery in stable condition. Condition: stable Disposition: PACU Specimens:: Left ureteral stone and bilateral ureteral stents Complications:: None
== END 2019-12-15 17:07 | disposition home or self-care (01) ==
LOC: OR 13:11
PROVIDERS: Visit Provider Urology
PROC: (CPT 52310; principal; 2019-12-15 15:00)
DX: N20.1 Calculus of ureter (principal); F32.9 Major depressive disorder, single episode, unspecified; D64.9 Anemia, unspecified; K76.9 Liver disease, unspecified; F19.11 Other psychoactive substance abuse, in remission; Z88.6 Allergy status to analgesic agent; Z91.040 Latex allergy status; Z79.899 Other long term (current) drug therapy; Z79.891 Long term (current) use of opiate analgesic; Z72.0 Tobacco use
CPT/HCPCS: 52352; 52310; 81025; 96374

== ENCOUNTER 2020-05-06 07:25 | Emergency (ER) | payer OTHER, SELFPAY ==
[2020-05-06 07:37] VITALS: BP 108/64; PULSE 67; RESP 17; TEMP 36.8; O2SAT 100; BMI 22.0
--- NOTE | 2020-05-06 07:46 | CT_ITS ---
PROCEDURE: CT ABDOMEN PELVIS W CON CLINICAL INDICATION: abdominal pain Vomiting and diarrhea COMPARISON: No exams were available for comparison TECHNIQUE: IV Contrast: 75ML Isovue 370 Oral Contrast None Axial images obtained with sagittal and coronal reformats. All CT scans at the facility use one or more dose reduction, viz: automated exposure control, ma/kV adjustment per patient size (including targeted exams where dose is matched to indication, i.e. head), or iterative reconstruction technique. FINDINGS: LOWER THORAX: No acute finding ABDOMEN & PELVIS: There has been a prior cholecystectomy. The liver, spleen, adrenal glands, pancreas, and left kidney have an unremarkable appearance. There is some cortical scarring with atrophy of the right kidney. No renal or ureteral calculi. The stomach is fluid-filled No evidence of appendicitis. There is a small umbilical hernia which contains fat. There are scattered air-fluid levels within the large bowel which is nondistended. There are few fluid-filled loops of nondistended small bowel. No evidence of bowel obstruction. There are bilateral tubal ligation clips. There is mild bulging disc with disc osteophyte complex at L5-S1 causing canal stenosis and bilateral foraminal narrowing. IMPRESSION: Scattered air-fluid levels within the large bowel which may be seen with diarrhea disease. Fluid-filled stomach with a few fluid-filled loops of small bowel also noted which could be seen with gastroenteritis. Dictated by: Julian Garcia MD 05/06/2020 09:01 Julian Garcia MD in [facility] 05/06/2020 09:01
[2020-05-06 07:51] LABS: Microscopic, Urine URINE MICROSCOPIC (MICROSCOPIC)
[2020-05-06 07:53] LABS: Appearance,Urine CLEAR (Clear); Bilirubin,Urine Negative (Negative); Blood, Urine Negative (Negative); Color,Urine YELLOW (Yellow); Glucose,Urine (UA) Negative (Negative); Ketones,Urine Negative (Negative); Leukocyte Esterase,Urine Negative (Negative); Nitrate,Urine Negative (Negative); PH,Urine 5.5 (5.0-8.5); Protein,Urine TRACE (Negative); Specific Gravity, Urine >= 1.030 (1.005-1.030); Urobilinogen,Urine 0.2 EU/dl (0.2)
[2020-05-06 07:55] LABS: Urine Pregnancy, HCG Qual. Negative (Negative)
[2020-05-06 07:56] VITALS: BP 116/67; PULSE 68; O2SAT 97
[2020-05-06 07:56] LABS: Chloride 98 mmol/L (98-107); Potassium 3.4 mmoL/L (3.5-5.1); Sodium 137 mmol/L (136-145)
[2020-05-06 07:59] LABS: Alanine Aminotransferase 44 U/L (12-78); Albumin Level 5.2 g/dl (3.5-5.0); Albumin/Globulin Ratio 1.1 (1.1-1.8); Alkaline Phosphatase 125 U/L (38-126); Amylase 101 U/L (30-110); Anion Gap 15.4 mEq/L (5-15); Aspartate Amino Transferase 43 U/L (14-36); Blood Urea Nitrogen 21 mg/dl (7-17); Calcium 10.6 mg/dl (8.4-10.2); Carbon Dioxide 27 mmol/L (22.0-30.0); Creatinine Clearance Estimated 73 mL/min (50-200); Estimated Glomerular Filt Rate 56 ml/min (>60); GFR (African American) 68 ML/MIN (>60); Globulin 4.9 g/dL (1.3-3.2); Glucose 117 mg/dl (74-100); Lipase 31 U/L (23-300); Total Protein,Serum 10.1 g/dl (6.3-8.2)
[2020-05-06 08:00] LABS: Basophils # 0.1 K/mm3 (0-0.2); Basophils % 0.9 % (0.1-2.0); Eosinophils # 0.1 K/mm3 (0.0-0.4); Eosinophils % 1.2 % (0.1-12.0); Hematocrit 41.7 % (37.0-47.0); Hemoglobin 13.8 g/dL (12.2-16.2); Lymphocytes # 1.9 K/mm3 (0.7-4.5); Lymphocytes % 30.3 % (10-50); Mean Corpuscular Hemoglobin 30.9 pg (27.0-31.2); Mean Corpuscular Volume 93.4 fl (81-99); Monocytes # 0.3 K/mm3 (0.1-1.0); Monocytes % 5.4 % (1.7-9.3); Neutrophils % 62.3 % (37.0-80.0); Platelet Count 242 K/mm3 (142-424); Red Blood Count 4.46 M/mm3 (4.20-5.40); Red Cell Distribution Width 13.3 % (11.5-17.5); White Blood Count 6.4 K/mm3 (4.8-10.8)
--- NOTE | 2020-05-06 08:17 | HMH.EDHA ---
ED Disposition Clinical Impression: Gastroenteritis and colitis, viral Migraine Qualifiers: Migraine type: without aura Status migrainosus presence: without status migrainosus Intractability: not intractable Qualified Code(s): G43.009 - Migraine without aura, not intractable, without status migrainosus Disposition: Home, Self-Care Condition on Discharge: Good Instructions: DI for Viral Gastroenteritis -- Adult Prescriptions: Ondansetron [Zofran 4mg ODT] 4 mg PO TIDP PRN #10 tab PRN Reason: Nausea Transmission Status: Pending to [facility] #[id number] Referrals: PCP,No [Primary Care Provider] - - Critical Care Critical Care Time: No Attestation: On 05/06/20, the high probability of a clinically significant, sudden or life threatening deterioration of the following system(s) required my full and direct attention, intervention and personal management. The time I documented below is in addition to time spent performing reported procedures but includes the following listed in this critical care notation. Medical Decision Making - Medical Records Medical records reviewed: Yes: I reviewed the patient's medical records. - Oneal Inquiry Pt receiving controlled substance: No Vital Signs: 05/06/20 07:37 05/06/20 07:56 05/06/20 08:48 Temperature 98.2 F Temperature Source Oral Pulse Rate [Right Radial] 67 68 66 Respiratory Rate 17 Blood Pressure [Right Arm] 108/64 L 116/67 110/64 Blood Pressure Mean [Right Arm] 78 83 79 Blood Pressure Source [Right Arm] Automatic Cuff Automatic Cuff Blood Pressure Position [Right Arm] Sitting Sitting 02 Sat by Pulse Oximetry 100 97 100 Oxygen Delivery Method Room Air Room Air Room Air 05/06/20 09:00 Temperature Temperature Source Pulse Rate [Right Radial] 67 Respiratory Rate Blood Pressure [Right Arm] 117/78 Blood Pressure Mean [Right Arm] 91 Blood Pressure Source [Right Arm] Automatic Cuff Blood Pressure Position [Right Arm] Sitting 02 Sat by Pulse Oximetry 100 Oxygen Delivery Method Room Air - Lab Data Lab Results 05/06/20 07:30: Urine Color Yellow, Urine Appearance Clear, Urine pH 5.5, Ur Specific [place] >= 1.030, Urine Protein Trace, Urine Glucose (UA) Negative, Urine Ketones Negative, Urine Blood Negative, Urine Nitrate Negative, Urine Bilirubin Negative, Urine Urobilinogen 0.2, Ur Leukocyte Esterase Negative, Urine RBC Occasional, Urine WBC 3-5, Ur Squamous Epith Cells 3-5 05/06/20 07:30: Urine HCG, Qual Negative 05/06/20 07:37: WBC 6.4, RBC 4.46, Hgb 13.8, Hct 41.7, MCV 93.4, MCH 30.9, MCHC 33.0, RDW 13.3, Plt Count 242, MPV 8.0, Neut % (Auto) 62.3, Lymph % (Auto) 30.3, [place] % (Auto) 5.4, Eos % (Auto) 1.2, Baso % (Auto) 0.9, Neut # (Auto) 4.0, Lymph # (Auto) 1.9, [place] # (Auto) 0.3, Eos # (Auto) 0.1, Baso # (Auto) 0.1 05/06/20 07:37: Sodium 137, Potassium 3.4 L, Chloride 98, Carbon Dioxide 27, Anion Gap 15.4 H, BUN 21 H, Creatinine 1.10 H, Estimated Creat Clear 73, Estimated GFR 56 L, Est GFR ( Amer) 68, Glucose 117 H, Calcium 10.6 H, Total Bilirubin 1.0, AST 43 H, ALT 44, Alkaline Phosphatase 125, Total Protein 10.1 H D, Albumin 5.2 H, Globulin 4.9 H, Albumin/Globulin Ratio 1.1, Amylase 101, Lipase 31 Result diagrams: 05/06/20 07:37 05/06/20 07:37 Orders (Tests/Meds): ED MEDICATIONS Discontinued Medications Generic Name Dose Route Start Last Admin Trade Name Yocatsa PRN Reason Stop Dose Admin Diphenhydramine HCl 25 mg 05/06/20 08:14 05/06/20 08:54 Diphenhydramine 50mg/Ml Vial IV 05/06/20 08:15 25 mg ONCE ONE Administration Sodium Chloride 1,000 mls @ 999 mls/hr 05/06/20 08:00 05/06/20 07:56 Sod Chlor 0.9% 1000ml Bag IV 05/06/20 09:00 999 mls/hr .Q1H1M MIGEL Administration Iopamidol 75 ml 05/06/20 08:23 05/06/20 08:24 Iopamidol-370 (76%);100ml Bottle IV 05/06/20 08:24 75 ml ONCE ONE Administration Ketorolac Tromethamine 30 mg 05/06/20 08:14 05/06/20 08:54 Ketorolac 30mg/Ml Vial IV
[2020-05-06 08:18] LABS: RBC,Urine Occasional #/hpf (0-3)
[2020-05-06 08:48] VITALS: BP 110/64; PULSE 66; O2SAT 100
[2020-05-06 09:00] VITALS: BP 117/78; PULSE 67; O2SAT 100
[2020-05-06 09:33] VITALS: BP 130/97; PULSE 75; RESP 18; TEMP 36.8; O2SAT 99
[2020-05-07 17:46] LABS: Covid-19 Nasal PCR Sendout Lex Not Detected
== END 2020-05-06 09:34 | disposition home or self-care (01) ==
PROVIDERS: Emergency Medicine; Emergency Provider Emergency Medicine
DX: K52.9 Noninfective gastroenteritis and colitis, unspecified (principal); G43.009 Migraine without aura, not intractable, without status migrainosus; Z20.828 Contact with and (suspected) exposure to other viral communicable diseases; Z88.5 Allergy status to narcotic agent; Z91.040 Latex allergy status; F41.8 Other specified anxiety disorders; Z79.899 Other long term (current) drug therapy; F11.11 Opioid abuse, in remission
CPT/HCPCS: 74177; 80053; 81001; 81025; 82150; 83690; 85025; 96365; 96375; 96376; 99283; J2405; Q9967; U0004

== ENCOUNTER 2020-08-18 21:01 | Observation (INO) | payer OTHER, SELFPAY ==
[2020-08-18 21:11] VITALS: BP 120/65; PULSE 77; RESP 16; TEMP 36.6; O2SAT 99; BMI 19.8
--- NOTE | 2020-08-18 21:25 | XR_ITS ---
PROCEDURE: XR KNEE LT 3V CLINICAL INDICATION: non-traumatic pain COMPARISON: No exams were available for comparison FINDINGS: No fracture or dislocation. No lytic or blastic change. There is normal mineralization. The joint spaces are well-preserved. No significant degenerative/arthritic changes. No erosive changes evident. Other findings:There may be a small knee joint effusion in the suprapatellar region. IMPRESSION: Possible knee joint effusion otherwise negative Dictated by: Julian aGrcia MD 08/19/2020 05:50 Julian Garcia MD in [facility] 08/19/2020 05:50
--- NOTE | 2020-08-18 21:30 | HMH.EDEXTP ---
ED Disposition Clinical Impression: IVDU (intravenous drug user) Arthralgia Qualifiers: Joint pain location: knee Laterality: left Qualified Code(s): M25.562 - Pain in left knee Disposition: Admitted as Observation Condition on Discharge: Fair Referrals: PCP,No [Primary Care Provider] - - Critical Care Critical Care Time: No Attestation: On 08/18/20, the high probability of a clinically significant, sudden or life threatening deterioration of the following system(s) required my full and direct attention, intervention and personal management. The time I documented below is in addition to time spent performing reported procedures but includes the following listed in this critical care notation. Medical Decision Making - Medical Records Medical records reviewed: Yes: I reviewed the patient's medical records. - Oneal Inquiry Pt receiving controlled substance: No Vital Signs: 08/18/20 21:11 Temperature 97.9 F Temperature Source Oral Pulse Rate [Right] 77 Respiratory Rate 16 Blood Pressure [Right Arm] 120/65 Blood Pressure Mean [Right Arm] 83 Blood Pressure Source [Right Arm] Automatic Cuff Blood Pressure Position [Right Arm] Sitting 02 Sat by Pulse Oximetry 99 Oxygen Delivery Method Room Air - Lab Data Lab results reviewed: Yes: I reviewed the patient's lab results. Lab Results 08/18/20 21:45: WBC 6.2, RBC 3.54 L, Hgb 10.4 L, Hct 32.2 L, MCV 91.2, MCH 29.5, MCHC 32.4, RDW 13.0, Plt Count 228, MPV 7.2 L, Neut % (Auto) 46.2, Lymph % (Auto) 39.4, [place] % (Auto) 4.8, Eos % (Auto) 8.8, Baso % (Auto) 0.8, Neut # (Auto) 2.8, Lymph # (Auto) 2.4, [place] # (Auto) 0.3, Eos # (Auto) 0.5 H, Baso # (Auto) 0.1, ESR > 140 H 08/18/20 21:45: Sodium 141, Potassium 3.8, Chloride 104, Carbon Dioxide 28, Anion Gap 12.8, BUN 18 H, Creatinine 1.10 H, Estimated Creat Clear 66, Estimated GFR 56 L, Est GFR ( Amer) 68, Glucose 98, Calcium 9.6, Total Bilirubin 0.4, AST 29, ALT 25, Alkaline Phosphatase 116, C-Reactive Protein 33.4 H, Total Protein 8.4 H, Albumin 4.4, Globulin 4.0 H, Albumin/Globulin Ratio 1.1, Procalcitonin 0.402 08/18/20 21:45: Lactate 1.2 08/18/20 22:05: Urine Color Yellow, Urine Appearance Clear, Urine pH 6.0, Ur Specific [place] >= 1.030, Urine Protein Negative, Urine Glucose (UA) Negative, Urine Ketones Negative, Urine Blood Negative, Urine Nitrate Negative, Urine Bilirubin Negative, Urine Urobilinogen 0.2, Ur Leukocyte Esterase Negative, Urine RBC 3-5, Urine WBC 3-5, Ur Squamous Epith Cells Tntc, Urine Bacteria 1+, Urine Mucus 1+ 08/18/20 22:05: Urine Opiates Screen Positive H, Urine Methadone Screen Negative, Ur Barbituates Screen Negative, Ur Phencyclidine Scrn Negative, Ur Amphetamines Screen [employer], U Benzodiazepines Scrn Negative, Urine Cocaine Screen Negative, U Marijuana (THC) Screen Negative Result diagrams: 08/18/20 21:45 08/18/20 21:45 Orders (Tests/Meds): ED MEDICATIONS Generic Name Dose Route Start Last Admin Trade Name Freq PRN Reason Stop Dose Admin Sodium Chloride 1,000 mls @ 999 mls/hr 08/18/20 23:30 08/18/20 23:38 Sod Chlor 0.9% 1000ml Bag IV 08/19/20 00:30 999 mls/hr .Q1H1M MIGEL Administration Discontinued Medications Generic Name Dose Route Start Last Admin Trade Name Freq PRN Reason Stop Dose Admin Iopamidol 100 ml 08/19/20 00:18 08/18/20 23:10 Iopamidol-370 (76%);100ml Bottle IV 08/19/20 00:19 100 ml ONCE ONE Administration Ketorolac Tromethamine 30 mg 08/18/20 23:36 08/18/20 23:37 Ketorolac 30mg/Ml Vial IV 08/18/20 23:37 30 mg ONCE ONE Administration Methylprednisolone Sodium Succinate 125 mg 08/18/20 23:36 08/18/20 23:37 Methylprednisolone Sod Succ 125mg Vial IV 08/18/20 23:37 125 mg ONCE ONE Administration Sodium Chloride 10 ml 08/19/20 00:18 08/18/20 23:10 Sodium Chloride 0.9% 10ml Syr (Rad Only) IV 08/19/20 00:19 10 ml ONCE ONE Administration ORDERS Category Date Time Status CT cervical spine w con Stat Cat Sca
--- NOTE | 2020-08-18 21:31 | CT_ITS ---
PROCEDURE: CT CERVICAL SPINE W CON CLINICAL INDICATION: pain COMPARISON: No exams were available for comparison TECHNIQUE: Axial images obtained with sagittal and coronal reformats. All CT scans at the facility use one or more dose reduction, viz: automated exposure control, ma/kV adjustment per patient size (including targeted exams where dose is matched to indication, i.e. head), or iterative reconstruction technique. Axial spiral CT scanning performed of the cervical spine beginning at the base of the skull and continuing to the upper T-spine. 3-D multiplanar reconstruction with 3-D manipulation of volumetric data set in image rendering was completed by the radiologist and/or technologist with the supervision of the radiologist on independent workstation. FINDINGS: No fracture nor subluxation is evident. Normal prevertebral soft tissues. Facets, neural foramen and vertebral bodies intact and unremarkable. Normal C1/C2 relationships. Apices of lungs are clear with no acute findings. There is a small concentric bulging disc versus small central disc protrusion suspected C5-C6. There are numerous small cervical lymph nodes as well as numerous small nodes in the mediastinum. No enhancing lesions are evident. There is mild stranding of the fat in the right supraclavicular region at the external jugular vein area. IMPRESSION: 1. No acute fracture or dislocation. 2. Bulging disc versus broad-based small central disc protrusion at C5-C6 which may be better evaluated with MRI if clinically warranted. 3. Numerous small nodes within the superior mediastinum supraclavicular region and lower cervical area 4. Stranding of the fat in the supraclavicular region on the right surrounding the external jugular vein. Inflammatory change such is thrombophlebitis could cause this finding. Recent IJ catheterization is also consideration. Please correlate with clinical parameters Dictated by: Julian Garcia MD 08/19/2020 06:31 Julian Garcia MD in [facility] 08/19/2020 06:31
--- NOTE | 2020-08-18 21:31 | CT_ITS ---
PROCEDURE: CT THORACIC SPINE W CON CLINICAL HISTORY: pain Weakness, pain, IV drug user COMPARISON: No exams were available for comparison TECHNIQUE: Axial images obtained with sagittal and coronal reformats. All CT scans at the facility use one or more dose reduction, viz: automated exposure control, ma/kV adjustment per patient size (including targeted exams where dose is matched to indication, i.e. head), or iterative reconstruction technique. FINDINGS: Normal alignment. No acute fracture or dislocation evident. Vertebral endplate irregularity with Schmorl's nodes noted in the lower thoracic spine. No fracture or dislocation. No evidence discitis, osteomyelitis, or paravertebral abscess. Small left paracentral disc protrusion noted at T7-T8. This is causing mild left lateral recess narrowing. There is scattered small mediastinal lymph nodes. IMPRESSION: 1. No acute fracture or dislocation. No evidence to suggest diskitis or osteomyelitis. No paravertebral abscess. 2. Small left paracentral disc protrusion at T7-T8 3. Mild degenerative changes 4. Scattered small mediastinal lymph nodes Dictated by: Julian Garcia MD 08/19/2020 06:37 Julian Garcia MD in [facility] 08/19/2020 06:37
--- NOTE | 2020-08-18 21:32 | CT_ITS ---
PROCEDURE: CT LUMBAR SPINE W CON CLINICAL HISTORY: back pain Back pain COMPARISON: No exams were available for comparison TECHNIQUE: Axial images obtained with sagittal and coronal reformats. All CT scans at the facility use one or more dose reduction, viz: automated exposure control, ma/kV adjustment per patient size (including targeted exams where dose is matched to indication, i.e. head), or iterative reconstruction technique. FINDINGS: There is normal alignment. No acute fracture or dislocation evident. No lytic or blastic change. Bulging disc is present at L4-5 with mild bilateral foraminal narrowing. There is bulging disc at L5-S1 with broad-based disc osteophyte complex slightly eccentric toward the right with resultant bilateral lateral recess and foraminal narrowing. The disc spaces are well preserved. There is no evidence discitis or osteomyelitis or paravertebral abscess. Incidental note is made of right renal cortical scarring. There is a small fat containing umbilical hernia IMPRESSION: 1. No acute fracture or dislocation. No evidence discitis, osteomyelitis, or paravertebral abscess. 2. Bulging disc is present at L4-5 with mild bilateral foraminal narrowing. 3. There is bulging disc at L5-S1 with broad-based disc osteophyte complex slightly eccentric toward the right with resultant bilateral lateral recess and foraminal narrowing. Dictated by: Julian Garcia MD 08/19/2020 06:42 Julian Garcia MD in [facility] 08/19/2020 06:42
--- NOTE | 2020-08-18 21:32 | XR_ITS ---
PROCEDURE: XR CHEST 2V CLINICAL HISTORY: sob COMPARISON: CR CXR1VP XR chest portable from 11/14/[address] chest w con from 12/19/2018 FINDINGS: The cardiomediastinal silhouette and pulmonary vascularity are within normal limits. The lungs are clear without infiltrates, suspicious nodules, or pleural effusions. No acute bony abnormalities. IMPRESSION: No acute findings. Dictated by: Julian Garcia MD 08/19/2020 05:52 Julian Garcia MD in [facility] 08/19/2020 05:52
--- NOTE | 2020-08-18 21:33 | XR_ITS ---
PROCEDURE: XR PELVIS 1-2V CLINICAL INDICATION: pain COMPARISON: No exams were available for comparison TECHNIQUE: XR Pelvis AP View FINDINGS: No fracture or dislocation is evident. No significant degenerative change. No lytic or blastic change. Bilateral tubal ligation clips are present. IMPRESSION: No acute findings. Dictated by: Julian Garcia MD 08/19/2020 05:51 Julian Garcia MD in [facility] 08/19/2020 05:51
--- NOTE | 2020-08-18 21:34 | XR_ITS ---
PROCEDURE: XR ANKLE RT MIN 3V CLINICAL INDICATION: pain Pain and swelling COMPARISON: No exams were available for comparison FINDINGS: Lateral fibular bone plate is present and there are 2 screws within the medial malleolar region. No acute fracture or dislocation. No lytic or blastic change. IMPRESSION: No acute findings. Dictated by: Julian Garcia MD 08/19/2020 05:33 Julian Garcia MD in [facility] 08/19/2020 05:33
[2020-08-18 22:09] LABS: Alanine Aminotransferase 25 U/L (12-78); Albumin Level 4.4 g/dl (3.5-5.0); Albumin/Globulin Ratio 1.1 (1.1-1.8); Alkaline Phosphatase 116 U/L (38-126); Anion Gap 12.8 mEq/L (5-15); Aspartate Amino Transferase 29 U/L (14-36); Bilirubin,Total 0.4 mg/dl (0.2-1.3); Blood Urea Nitrogen 18 mg/dl (7-17); Calcium 9.6 mg/dl (8.4-10.2); Carbon Dioxide 28 mmol/L (22.0-30.0); Chloride 104 mmol/L (98-107); Creatinine Clearance Estimated 66 mL/min (50-200); Estimated Glomerular Filt Rate 56 ml/min (>60); GFR (African American) 68 ML/MIN (>60); Glucose 98 mg/dl (74-100); Potassium 3.8 mmoL/L (3.5-5.1); Sodium 141 mmol/L (136-145); Total Protein,Serum 8.4 g/dl (6.3-8.2)
[2020-08-18 22:10] LABS: Lactic Acid 1.2 mmol/L (0.7-2.1)
--- NOTE | 2020-08-18 22:10 | PC.NURSE ---
Pt to radiology
[2020-08-18 22:12] LABS: Basophils # 0.1 K/mm3 (0-0.2); Basophils % 0.8 % (0.1-2.0); Eosinophils # 0.5 K/mm3 (0.0-0.4); Eosinophils % 8.8 % (0.1-12.0); Hematocrit 32.2 % (37.0-47.0); Hemoglobin 10.4 g/dL (12.2-16.2); Lymphocytes # 2.4 K/mm3 (0.7-4.5); Lymphocytes % 39.4 % (10-50); Mean Corpuscular HGB Conc 32.4 g/dL (31.8-35.4); Mean Corpuscular Hemoglobin 29.5 pg (27.0-31.2); Mean Corpuscular Volume 91.2 fl (81-99); Mean Platelet Volume 7.2 fl (7.4-10.4); Monocytes # 0.3 K/mm3 (0.1-1.0); Monocytes % 4.8 % (1.7-9.3); Neutrophils # 2.8 K/mm3 (1.8-7.8); Neutrophils % 46.2 % (37.0-80.0); Platelet Count 228 K/mm3 (142-424); Red Blood Count 3.54 M/mm3 (4.20-5.40); White Blood Count 6.2 K/mm3 (4.8-10.8)
[2020-08-18 22:13] LABS: Microscopic, Urine URINE MICROSCOPIC (MICROSCOPIC)
[2020-08-18 22:14] LABS: Appearance,Urine CLEAR (Clear); Bilirubin,Urine Negative (Negative); Blood, Urine Negative (Negative); Color,Urine YELLOW (Yellow); Glucose,Urine (UA) Negative (Negative); Ketones,Urine Negative (Negative); Leukocyte Esterase,Urine Negative (Negative); Nitrate,Urine Negative (Negative); Protein,Urine Negative (Negative); Specific Gravity, Urine >= 1.030 (1.005-1.030); Urobilinogen,Urine 0.2 EU/dl (0.2)
[2020-08-18 22:14] LABS: C-Reactive Protein 33.4 mg/L (0-4)
[2020-08-18 22:26] LABS: Barbiturates Screen,Urine Negative ng/ml (<200)
[2020-08-18 22:27] LABS: Benzodiazepines Screen,Urine Negative ng/ml (<200)
[2020-08-18 22:28] LABS: Procalcitonin 0.402 ng/mL (0.0-2.0)
[2020-08-18 22:28] LABS: Methadone Screen,Urine Negative ng/ml (<300)
[2020-08-18 22:29] LABS: Cannabinoid Screen,Urine Negative ng/ml (<50); Cocaine Screen,Urine Negative ng/ml (<300)
[2020-08-18 22:30] LABS: Opiate Screen,Urine Positive ng/ml (<300)
[2020-08-18 22:31] LABS: Phencyclidine Screen,Urine Negative ng/ml (<25)
[2020-08-18 22:46] LABS: Bacteria,Urine 1+ /lpf; Mucus,Urine 1+ /lpf; Squamous Epithelial Cell,Urine TNTC #/hpf (0-5)
[2020-08-18 22:54] LABS: Erythrocyte Sedimentation Rate > 140 mm/hr (0-20)
[2020-08-18 23:28] VITALS: PULSE 87; O2SAT 100
[2020-08-18 23:30] VITALS: BP 108/53; PULSE 77; O2SAT 100
[2020-08-18 23:45] VITALS: PULSE 73; O2SAT 100
[2020-08-19] VITALS (24 sets, daily range): BP systolic 111–146; BP diastolic 57–79; PULSE 44–82; RESP 14–18; TEMP 36.6–37.3; O2SAT 96–100; BMI 24.8
--- NOTE | 2020-08-19 00:48 | PC.NURSE ---
Tobin,Pharmacist was consulted on Vanc dosing. He states 1gm IV Q8H. orders 1mg/kg lovenox injection for one time dose now.
--- NOTE | 2020-08-19 00:50 | PC.NURSE ---
Dr. Landry s/w Dr. Prado
--- NOTE | 2020-08-19 00:58 | PC.NURSE ---
Called House for bed assignment at this time
--- NOTE | 2020-08-19 00:58 | PC.NURSE ---
Called House for bed assignment
--- NOTE | 2020-08-19 02:46 | PC.NURSE ---
patient up to floor via stretcher.
--- NOTE | 2020-08-19 04:58 | PC.NURSE ---
shift summary patient has rested well since arrival to floor. awoke early this am coughing to the point of gagging. patient denied nausea or vomiting. bed sat up. lungs clear, murmur auscultated. alert and oriented when awake. c/o pain to inside of left lower leg starting at knee to mid calf, worse upon flexing foot. denies falling no apparent injusry noted.
--- NOTE | 2020-08-19 07:22 | P.CONPHA_ITS ---
[facility] Pharmacy VTE Monitoring - Patient Demographics Admission date: 08/19/20 Report Date: 08/19/20 Time: 07:22 Allergies/Adverse Reactions: Patient Allergies latex [LATEX] Allergy (Unknown, Verified 05/06/20 07:44) codeine Allergy (Verified 05/06/20 07:44) Height: 1.73 m Weight: 74.134 kg Patient Problems: Current Active Problems IVDU (intravenous drug user) (Acute) Arthralgia (Acute) - VTE Risk Labs: VTE Related Lab Results Hgb 10.4 g/dL (12.2-16.2) L 08/18/20 21:45 Hct 32.2 % (37.0-47.0) L 08/18/20 21:45 Plt Count 228 K/mm3 (142-424) 08/18/20 21:45 BUN 18 mg/dl (7-17) H 08/18/20 21:45 Creatinine 1.10 mg/dl (0.52-1.04) H 08/18/20 21:45 Estimated Creat Clear 66 mL/min (50-200) 08/18/20 21:45 Was VTE Risk Assessment Performed: Yes VTE Score: 0 VTE Risk Level: Very Low Risk Clinical Trial Participant: No - Prophylaxis VTE Prophylaxis Ordered?: Yes Types of VTE Prophylaxis: TEDS Knee High, Pharmacological Pharmacologic Type: Enoxaparin
[2020-08-19 07:51] LABS: Anion Gap 12.9 mEq/L (5-15); Blood Urea Nitrogen 19 mg/dl (7-17); Calcium 9.2 mg/dl (8.4-10.2); Carbon Dioxide 22 mmol/L (22.0-30.0); Chloride 109 mmol/L (98-107); Creatinine Clearance Estimated 91 mL/min (50-200); Estimated Glomerular Filt Rate 63 ml/min (>60); GFR (African American) 76 ML/MIN (>60); Glucose 173 mg/dl (74-100); Potassium 4.9 mmoL/L (3.5-5.1); Sodium 139 mmol/L (136-145)
--- NOTE | 2020-08-19 08:00 | CA_ITS ---
APPROVED REPORT Bilateral Lower Extremity Venous Study for DVT. Medical Secretary: ROSANNA Indications Lower Extremity Edema: Current Smoker leg swelling Vein Imaging CFV (R): compressive, spontaneous, phasic, augmentation FEM (R): compressive, spontaneous, phasic, augmentation POP (R): compressive, spontaneous, phasic, augmentation DFV (R): compressive, spontaneous, phasic, augmentation PTV (R): Compressible GSV (R): Compressible Peroneals (R):Compressible GAS (R): Compressible CFV (L): compressive, spontaneous, phasic, augmentation FEM (L): compressive, spontaneous, phasic, augmentation POP (L): compressive, spontaneous, phasic, augmentation DFV (L): compressive, spontaneous, phasic, augmentation PTV (L): Compressible GSV (L): Compressible Peroneals (L):Compressible GAS (L): Compressible Findings No evidence of DVT or superficial thrombophlebitis in the veins scanned of the right lower extremity. No evidence of DVT or superficial thrombophlebitis in the veins scanned of the left lower extremity. Conclusion No evidence of DVT or superficial thrombophlebitis in the veins scanned of the right lower extremity. No evidence of DVT or superficial thrombophlebitis in the veins scanned of the left lower extremity. Electronically signed by : Julian Garcia MD 08/19/2020 16:49:29
--- NOTE | 2020-08-19 08:00 | CA_ITS ---
APPROVED REPORT EXAM: Comprehensive 2D, Doppler, and color-flow Echocardiogram Incident Commander: Tatiana Salmeron RDCS Ht: 5 ft 8 in Wt: 130lbs BSA: 1.70 BP: 120/65 mmHg Indications: MURMUR,IV DRUG ABUSE,EDEMA 2D Dimensions LVOT 1.68 cm (M/F) 1.5-2.5 LA Volume 56.40 mL LA Volume Index 33.17 mL/m2 (M/F) 16-34 M-Mode Dimensions RVDd 2.86 cm (0.9-2.6) LA Diam 3.18 cm (1.9-4.0) LVDd 4.78 cm (3.5-5.7) Ao Diam 2.38 cm (2.0-3.7) LVDs 3.35 cm (3.5-5.7) IVSd 0.76 cm (0.6-1.1) PWd 0.67 cm (0.6-1.1) EF (Teich) 57.00% FS 29.90% EDV (Teich) 106.50 mL TAPSE 2.54 (<1.7) ESV (Teich) 45.80 mL LV Diastology E Decel Time 187.00 (160-240 msec) E/A Ratio 1.6 MED E' 9.70 (< 7 cm/sec) E'/MED E' Ratio 8.28 (>14) LAT E' 11.80 (<10 cm/sec) E/LAT E' Ratio 6.81 (>14) Mitral Valve MV E Max Guicho. 80.00 (40-130 cm/s) MV A Velocity 50.00 (40-130 cm/s) E/A Ratio 1.62 MV Decel. Time 187.00 (160-240 ms) MV PHT 55.00 ms Tricuspid Valve TR P. Velocity 314.00 cm/s RAP Estimate 10.00 mmHg RVSP 49.40 mmHg Left Ventricle Left atrium is normal size, left ventricle is normal size, there is no concentric left ventricular hypertrophy, visually estimated ejection fraction 55% with no regional wall motion abnormality. Diastolic parameters are inconclusive. Right Ventricle Right atrium and right ventricle are mildly enlarged with normal contractility, there is an echodense linear mass seen near the nonseptal leaflet of the tricuspid valve, whether this is an artifact, vegetation or thrombus is difficult to ascertain from this study, if clinically indicated transesophageal echocardiogram is recommended. Aortic Valve Aortic valve is minimally thickened and fibrosed there is no aortic stenosis or aortic insufficiency. Mitral Valve Mitral valve is grossly normal, there is trace mitral regurgitation. Tricuspid Valve Tricuspid valve leaflets are minimally thickened, there is moderate tricuspid regurgitation, calculated right ventricular systolic pressure is 41 mmHg. Pulmonic Valve Pulmonic valve is poorly visualized. Great Vessels Aortic root is normal size. Pericardium No significant pericardial effusion noted. Conclusion 1. Normal left ventricular size, preserved left ventricular systolic function, visually estimated ejection fraction 55% with no regional wall motion abnormality, diastolic parameters are inconclusive. 2. Abnormal right atrial echodense structure seen near the nonseptal leaflet of the tricuspid valve whether this is an artifact, thrombus or vegetation cannot be ascertained from this study, if clinically indicated transesophageal echocardiogram is recommended. 3. Moderate tricuspid regurgitation, calculated right ventricular systolic pressure is 41 mmHg. 4. No significant pericardial effusion noted. Electronically signed by : Giuseppe German, 08/19/2020 11:09:00
[2020-08-19 08:04] LABS: Basophils % 0.3 % (0.1-2.0); Eosinophils % 0.6 % (0.1-12.0); Hematocrit 30.7 % (37.0-47.0); Hemoglobin 9.9 g/dL (12.2-16.2); Mean Corpuscular HGB Conc 32.1 g/dL (31.8-35.4); Mean Corpuscular Hemoglobin 29.8 pg (27.0-31.2); Mean Corpuscular Volume 92.7 fl (81-99); Mean Platelet Volume 7.8 fl (7.4-10.4); Monocytes % 1.4 % (1.7-9.3); Neutrophils # 1.4 K/mm3 (1.8-7.8); Neutrophils % 56.7 % (37.0-80.0); Platelet Count 153 K/mm3 (142-424); Red Blood Count 3.32 M/mm3 (4.20-5.40); Red Cell Distribution Width 12.7 % (11.5-17.5); White Blood Count 2.4 K/mm3 (4.8-10.8)
--- NOTE | 2020-08-19 08:57 | HMH.HP ---
*Admission Date: 08/19/20 *Chief complaint: knee pain *History of present illness: 34 yr old female presented to ed with c/o over the last few days pain to lt knee area and rt ankle w/o fever or trauma - has had orif rt ankle in past and does admit to iv drug use - no chest or abd pain - no rash. Pt was admitted to have further work up on knee and ankle pain due to hx of iv drug user. [facility] History I have reviewed the patient's past medical history: Yes Medical History: Reports:: Anxiety, Depression, Kidney Stones Denies:: Cancer, Diabetes Mellitus Type 1, Diabetes Mellitus Type 2, Internal Pacemaker, MRSA, Seizures *Have you ever received a pneumonia vaccine?: No *Have you received a flu vaccine this season?: No Other Medical History: Reports: Anemia, Liver Disease, Other. Denies: Blood Transfusion Reaction Other Surgeries: Yes: No Previous Surgery, Cholecystectomy, , Other. No: Pacemaker Amputation: No Fractures: Yes (ANKLE) - *Social History Smoking Status: Current every day smoker Tobacco Type: cigarettes # Packs/Day (cigarettes): 4 Alcohol Intake: current Alcohol Intake Frequency:: a few times a week Substance Use Type: heroin Last Used Substance: hours (ago) *Occupational Status:: unemployed Housing: house Household Members: family, children *Travel in the last 8 weeks: None - Psychiatric History Pschychiatric History:: Reports:: Anxiety, Depression Family Hx:: No significant family history Review of Systems - Review of Systems Review of systems:: pertinent systems reviewed and negative unless documented below - Constitutional Reports body ache(s), Denies fatigue - Eyes Denies change in vision - ENT Denies nasal discharge - *Cardiovascular Denies chest pain at rest - *Respiratory Denies excessive phlegm production - *Gastrointestinal Denies nausea, Denies vomiting - *Genitourinary Denies abnormal vaginal bleeding - *Musculoskeletal Reports joint pain - Integumentary/Breasts Denies rash - *Neurologic Denies localized weakness, Denies headache(s), Denies seizure-like activity - Psychiatric Denies anxiety - Endocrine Denies flushing - Hematologic/Lymphatic Denies enlarged lymph nodes - Allergic/Immunologic Denies itchy eyes Meds Home Medications Medication Instructions Recorded Confirmed Type buprenorphine 2 mg-naloxone 0.5 mg 1 film BUCCAL DAILY 02/18/19 08/19/20 History sublingual film Buspirone HCl [Buspirone 15 mg 15 mg PO TID 12/14/19 08/19/20 History Tablets] Doxepin HCl [Sinequin 50mg capsule] 100 mg PO HS 08/19/20 08/19/20 History buPROPion HCL [Bupropion Xl] 300 mg PO DAILY 08/19/20 08/19/20 History Allergies Allergy/AdvReac Type Severity Reaction Status Date / Time latex [LATEX] Allergy Unknown Verified 05/06/20 07:44 codeine Allergy Verified 05/06/20 07:44 Exam Vital signs and Labs for Last 24 Hours: Temp Pulse Resp BP Pulse Ox 98.9 F 60 18 130/76 99 08/19/20 04:00 08/19/20 04:00 08/19/20 04:00 08/19/20 04:00 08/19/20 04:00 Laboratory Results - last 24 hr 08/18/20 21:45: WBC 6.2, RBC 3.54 L, Hgb 10.4 L, Hct 32.2 L, MCV 91.2, MCH 29.5, MCHC 32.4, RDW 13.0, Plt Count 228, MPV 7.2 L, Neut % (Auto) 46.2, Lymph % (Auto) 39.4, [place] % (Auto) 4.8, Eos % (Auto) 8.8, Baso % (Auto) 0.8, Neut # (Auto) 2.8, Lymph # (Auto) 2.4, [place] # (Auto) 0.3, Eos # (Auto) 0.5 H, Baso # (Auto) 0.1, ESR > 140 H 08/18/20 21:45: Sodium 141, Potassium 3.8, Chloride 104, Carbon Dioxide 28, Anion Gap 12.8, BUN 18 H, Creatinine 1.10 H, Estimated Creat Clear 66, Estimated GFR 56 L, Est GFR ( Amer) 68, Glucose 98, Calcium 9.6, Total Bilirubin 0.4, AST 29, ALT 25, Alkaline Phosphatase 116, C-Reactive Protein 33.4 H, Total Protein 8.4 H, Albumin 4.4, Globulin 4.0 H, Albumin/Globulin Ratio 1.1, Procalcitonin 0.402 08/18/20 21:45: Lactate 1.2 08/18/20 22:05: Urine Color Yellow, Urine Appearance Clear, Urine pH 6.0, Ur Specific [place] >= 1.030, Uri
--- NOTE | 2020-08-19 09:32 | HMH.PHACONS ---
- Pharmacy Consult Date: 08/19/20 Time: 09:32 Referring provider: DR. FRANCOIS Reason for Consult:: VANCOMYCIN DOSING Allergies and ADEs:: Allergies Allergy/AdvReac Type Severity Reaction Status Date / Time latex [LATEX] Allergy Unknown Verified 05/06/20 07:44 codeine Allergy Verified 05/06/20 07:44 Home Medications:: Home Medications Medication Instructions Recorded Confirmed Type buprenorphine 2 mg-naloxone 0.5 mg 1 film BUCCAL DAILY 02/18/19 08/19/20 History sublingual film Buspirone HCl [Buspirone 15 mg 15 mg PO TID 12/14/19 08/19/20 History Tablets] Doxepin HCl [Sinequin 50mg capsule] 100 mg PO HS 08/19/20 08/19/20 History buPROPion HCL [Bupropion Xl] 300 mg PO DAILY 08/19/20 08/19/20 History Height: 1.73 m Weight: 74.134 kg Laboratory Results:: Laboratory Results - last 24 hr 08/18/20 21:45: WBC 6.2, RBC 3.54 L, Hgb 10.4 L, Hct 32.2 L, MCV 91.2, MCH 29.5, MCHC 32.4, RDW 13.0, Plt Count 228, MPV 7.2 L, Neut % (Auto) 46.2, Lymph % (Auto) 39.4, [place] % (Auto) 4.8, Eos % (Auto) 8.8, Baso % (Auto) 0.8, Neut # (Auto) 2.8, Lymph # (Auto) 2.4, [place] # (Auto) 0.3, Eos # (Auto) 0.5 H, Baso # (Auto) 0.1, ESR > 140 H 08/18/20 21:45: Sodium 141, Potassium 3.8, Chloride 104, Carbon Dioxide 28, Anion Gap 12.8, BUN 18 H, Creatinine 1.10 H, Estimated Creat Clear 66, Estimated GFR 56 L, Est GFR ( Amer) 68, Glucose 98, Calcium 9.6, Total Bilirubin 0.4, AST 29, ALT 25, Alkaline Phosphatase 116, C-Reactive Protein 33.4 H, Total Protein 8.4 H, Albumin 4.4, Globulin 4.0 H, Albumin/Globulin Ratio 1.1, Procalcitonin 0.402 08/18/20 21:45: Lactate 1.2 08/18/20 22:05: Urine Color Yellow, Urine Appearance Clear, Urine pH 6.0, Ur Specific [place] >= 1.030, Urine Protein Negative, Urine Glucose (UA) Negative, Urine Ketones Negative, Urine Blood Negative, Urine Nitrate Negative, Urine Bilirubin Negative, Urine Urobilinogen 0.2, Ur Leukocyte Esterase Negative, Urine RBC 3-5, Urine WBC 3-5, Ur Squamous Epith Cells Tntc, Urine Bacteria 1+, Urine Mucus 1+ 08/18/20 22:05: Urine Opiates Screen Positive H, Urine Methadone Screen Negative, Ur Barbituates Screen Negative, Ur Phencyclidine Scrn Negative, Ur Amphetamines Screen Client Service Manager, U Benzodiazepines Scrn Negative, Urine Cocaine Screen Negative, U Marijuana (THC) Screen Negative 08/19/20 07:20: WBC 2.4 L D, RBC 3.32 L, Hgb 9.9 L, Hct 30.7 L, MCV 92.7, MCH 29.8, MCHC 32.1, RDW 12.7, Plt Count 153 D, MPV 7.8, Neut % (Auto) 56.7, Lymph % (Auto) 41.0, [place] % (Auto) 1.4 L, Eos % (Auto) 0.6, Baso % (Auto) 0.3, Neut # (Auto) 1.4 L, Lymph # (Auto) 1.0, [place] # (Auto) 0.0 L, Eos # (Auto) 0.0, Baso # (Auto) 0.0 08/19/20 07:20: Sodium 139, Potassium 4.9 D, Chloride 109 H, Carbon Dioxide 22 D, Anion Gap 12.9, BUN 19 H, Creatinine 1.00, Estimated Creat Clear 91, Estimated GFR 63, Est GFR ( Amer) 76, Glucose 173 H D, Calcium 9.2, Magnesium 2.0 Medical History: Reports:: Anxiety, Depression, Kidney Stones Denies:: Cancer, Diabetes Mellitus Type 1, Diabetes Mellitus Type 2, Internal Pacemaker, MRSA, Seizures Assessment and Plan (1) Arthralgia Status: Acute Qualifiers: Joint pain location: knee Laterality: left Qualified Code(s): M25.562 - Pain in left knee Category: Medical Code(s): M25.50 - Pain in unspecified joint (2) IVDU (intravenous drug user) Status: Acute Category: Social Hx Code(s): F19.90 - Other psychoactive substance use, unspecified, uncomplicated (3) Heroin use Status: Acute Category: Medical Code(s): F11.90 - Opioid use, unspecified, uncomplicated - Assessment and plan all Dx Assessment and Plan for all problems:: BASED ON PATIENT FACTORS, RECOMMEND CONTINUING WITH VANCOMYCIN 1250 MG Q12H AT THIS TIME. PHARMACY WILL FOLLOW DAILY AND ADJUST APPROPRIATE.
--- NOTE | 2020-08-19 09:51 | HMH.PHAINT ---
VERIFIED HOME MEDICATION LIST WITH [facility]. ALSO CALLED [facility]. PT HAS NOT BEEN SEEN FOR A SUBOXONE PRESCRIPTION SINCE MARCH 2020.
--- NOTE | 2020-08-19 11:20 | HMH.PTEV ---
Physical Therapy Evaluation Rehab PT IP Evaluation Start: 08/19/20 08:55 Freq: ONCE Status: Active Protocol: Document 08/19/20 11:18 PHORLILIA (Rec: 08/19/20 11:20 PHORNE [id number]) Subjective/History History History 34 yowf adm to [facility] with pain in R foot and knee. She reports she lives with friends , several steps to enter, but she is independent with all mobility. Subjective Subjective C/o pain in R foot, but less than yesterday. Rehab PT IP Eval Objective Appearance Patient Behavior Appropriate Patient Orientation Person,Place,Time Difficulty following instructions none Speech Pattern Clear Ambulation Patient Able to Ambulate Yes Ambulation Observation IP General Gait Pattern Observation Antalgic Gait Ambulation Distance (feet) 25 Ambulation Assistive Device None Ambulation Ability Independent Balance Ability to Arise Able, w/o using arms Sitting Balance Steady, safe Standing Balance Narrow stance w/o support Dynamic Sitting Balance Ability Normal Dynamic Standing Balance Ability Normal Transfers Bed Transfer Ability Independent Chair Transfer Ability Independent Sit to Stand Bed Transfer Ability Independent Sit to Stand Chair Transfer Ability Independent ROM All Extremities PT ROM Status WFL MMT All Extremities PT MMT WFL Rehab PT IP prob,goals,plan Problems Date of Evaluation: 08/19/20 Discharge Plan PT Discharge Plan Pt appears to be at baseline for all mobility and has no inpatient therapy needs currently. G -code Required No Eval Complexity Eval Charge Codes 53692 - Moderate Complexity PHYSICIAN CERTIFICATION: I certify the specified therapy services for Vidhi Van are required, authorized, and reviewed every 30 days.
--- NOTE | 2020-08-19 11:23 | HMH.CNCARD ---
<Ajith López - Last Filed: 08/19/20 11:23> History of Present Illness Consult date: 08/19/20 Requesting physician: Cristopher Landry Chief complaint: Abnormal Echo Additional Medical History:: 1. Recurrent IV drug user with history of rehabilitation admissions in the past A. Abnormal echocardiogram (questionable right atrial abnormality), 08/19/2020 with recommendation for transesophageal echocardiogram. 2. History of right ankle surgery 3. Anxiety/depression History of present illness: 34 yr old female presented to ed with c/o over the last few days pain to lt knee area and rt ankle w/o fever or trauma - has had orif rt ankle in past and does admit to iv drug use - no chest or abd pain - no rash. Pt was admitted to have further work up on knee and ankle pain due to hx of iv drug user. The above per Alec Mcleod [employer] for Dr. aLndry Echocardiogram shows possible intracardiac abnormality (possible right atrial mass or vegetation) with recommendation for GARY. Pt relates last dose of IV heroin yesterday morning. Discussed echo findings and recommendation for GARY. Questions answered with pt agreeing to proceed today. She states last meal was 9 AM. [facility] History Medical History: Reports:: Anxiety, Depression, Kidney Stones Denies:: Cancer, Diabetes Mellitus Type 1, Diabetes Mellitus Type 2, Internal Pacemaker, MRSA, Seizures *Have you ever received a pneumonia vaccine?: No *Have you received a flu vaccine this season?: No Other Medical History: Reports: Anemia, Liver Disease, Other. Denies: Blood Transfusion Reaction Other Surgeries: Yes: No Previous Surgery, Cholecystectomy, , Other. No: Pacemaker Amputation: No Fractures: Yes (ANKLE) - *Social History Smoking Status: Current every day smoker Tobacco Type: cigarettes # Packs/Day (cigarettes): 4 Alcohol Intake: current Alcohol Intake Frequency:: a few times a week Substance Use Type: heroin Last Used Substance: hours (ago) *Occupational Status:: unemployed Housing: house Household Members: family, children *Travel in the last 8 weeks: None - Psychiatric History Pschychiatric History:: Reports:: Anxiety, Depression Family Hx:: No significant family history Meds Home Medications Medication Instructions Recorded Confirmed Type Buspirone HCl [Buspirone 15 mg 15 mg PO TID 12/14/19 08/19/20 History Tablets] Doxepin HCl [Sinequin 50mg capsule] 100 mg PO HS 08/19/20 08/19/20 History buPROPion HCL [Bupropion Xl] 300 mg PO DAILY 08/19/20 08/19/20 History Allergies Allergy/AdvReac Type Severity Reaction Status Date / Time latex [LATEX] Allergy Unknown Verified 05/06/20 07:44 codeine Allergy Verified 05/06/20 07:44 Exam Vital signs and Labs for Last 24 Hours: Temp Pulse Resp BP Pulse Ox 97.9 F 50 L 16 113/57 L 99 08/19/20 08:00 08/19/20 08:00 08/19/20 08:00 08/19/20 08:00 08/19/20 08:00 Laboratory Results - last 24 hr 08/18/20 21:45: WBC 6.2, RBC 3.54 L, Hgb 10.4 L, Hct 32.2 L, MCV 91.2, MCH 29.5, MCHC 32.4, RDW 13.0, Plt Count 228, MPV 7.2 L, Neut % (Auto) 46.2, Lymph % (Auto) 39.4, [place] % (Auto) 4.8, Eos % (Auto) 8.8, Baso % (Auto) 0.8, Neut # (Auto) 2.8, Lymph # (Auto) 2.4, [place] # (Auto) 0.3, Eos # (Auto) 0.5 H, Baso # (Auto) 0.1, ESR > 140 H 08/18/20 21:45: Sodium 141, Potassium 3.8, Chloride 104, Carbon Dioxide 28, Anion Gap 12.8, BUN 18 H, Creatinine 1.10 H, Estimated Creat Clear 66, Estimated GFR 56 L, Est GFR ( Amer) 68, Glucose 98, Calcium 9.6, Total Bilirubin 0.4, AST 29, ALT 25, Alkaline Phosphatase 116, C-Reactive Protein 33.4 H, Total Protein 8.4 H, Albumin 4.4, Globulin 4.0 H, Albumin/Globulin Ratio 1.1, Procalcitonin 0.402 08/18/20 21:45: Lactate 1.2 08/18/20 22:05: Urine Color Yellow, Urine Appearance Clear, Urine pH 6.0, Ur Specific [place] >= 1.030, Urine Protein Negative, Urine Glucose (UA) Negative, Urine Ketones Negative, Urine Blood Negative, Urine Nitrate Negative, Urine Bilirubin Negative, Urine Urobilinogen
--- NOTE | 2020-08-19 11:36 | HMH.OTEV ---
OT Inpatient Evaluation Rehab OT IP Evaluation Start: 08/19/20 08:55 Freq: ONCE Status: Complete Protocol: [facility]19[facility]20 11[facility]Rec: 08/19/20 11:36 [facility] [id number]) Rehab OT IP Assessment Subjective History Pt is oriented x 3 on arrival. Pt agreeable to engage in therapy evaluation. Pt was admitted via ED on 08/18/20 due to Pain in L knee and right foot with swelling. Pt has a past medical history of Anxiety, depression, kidney stones, liver disease and is an IVDU. Pt reports prior to being hosptialized she lived with a friend and was completely independent with all ADL's and IADL's. Pt also still drove. Subjective I came down to visit my son. Objective Patient Orientation Person,Place,Birthday Upper Extremity Gross ROM WFL Bed Mobility bed mobility-scooting,bed mobility - supine/sit,bed mobility - rolling Assist Level Supervision/Stand by Transfer Training Sit/Stand Transfer Assist Level Supervision/Stand by Chair Transfer Ability Supervision/Stand by Chair Transfer Technique Sit to/from Ambulatory Chair Transfer Assistive Devices None Lower Body Dressing Ability Standby Assistance Rehab OT IP prob,goals,plan Problems Date of Evaluation: 08/19/20 Rehab Potential Rehab Potential Innapropriate for Skilled Therapy Discharge Plan OT Discharge Plan Pt appears to be at baseline at this time and does not require further therapy tx. Eval Complexity Eval Charge Codes 22543 - Moderate Complexity G Codes G -code Required No PHYSICIAN CERTIFICATION: I certify the specified therapy services for Vidhi Van are required, authorized, and reviewed every 30 days.
[2020-08-19 12:34] LABS: Basophils % 0.2 % (0.1-2.0); Eosinophils % 0.2 % (0.1-12.0); Hematocrit 30.7 % (37.0-47.0); Hemoglobin 9.5 g/dL (12.2-16.2); Lymphocytes % 30.4 % (10-50); Mean Corpuscular HGB Conc 31.1 g/dL (31.8-35.4); Mean Corpuscular Hemoglobin 29.1 pg (27.0-31.2); Mean Corpuscular Volume 93.7 fl (81-99); Mean Platelet Volume 8.6 fl (7.4-10.4); Monocytes # 0.1 K/mm3 (0.1-1.0); Monocytes % 3.3 % (1.7-9.3); Neutrophils # 2.1 K/mm3 (1.8-7.8); Neutrophils % 65.9 % (37.0-80.0); Platelet Count 165 K/mm3 (142-424); Red Blood Count 3.27 M/mm3 (4.20-5.40); Red Cell Distribution Width 12.4 % (11.5-17.5); White Blood Count 3.2 K/mm3 (4.8-10.8)
--- NOTE | 2020-08-19 13:30 | CA_ITS ---
APPROVED REPORT EXAM: Comprehensive 2D, Doppler, and color-flow Echocardiogram Can Stacker: Tatiana Salmeron RDCS Ht: 5 ft 8 in Wt: 130lbs BSA: 1.70 BP: 120/65 mmHg Indications: GARY,R/O VEG ON TV Procedure After obtaining informed consent, patient underwent transesophageal echo in the ICU. Type of Sedation : Conscious Sedation Sedation was administered by Rocco Sutherland C.R.N.A. The GARY was performed without complications. Throughout the procedure, the blood pressure, pulse oximetry, cardiac rhythm, and rate were monitored. The patient tolerated the procedure without adverse effects. Recovery from conscious sedation was uneventful and vital signs were stable. Left Ventricle Left ventricle is normal size, preserved left ventricular systolic function visually estimated ejection fraction 55% in the obtained views. Right Ventricle Right ventricle is mildly enlarged with normal contractility. Atria Left atrium is normal size, left atrial appendage free of thrombus. Right atrium is mildly enlarged there is no thrombus in the right atrium. Intra-atrial septum is intact, there is no flow across the interatrial septum. Agitated saline contrast study fails 25 intracardiac shunt. Aortic Valve Aortic valve is minimally thickened and fibrosed, there is no aortic stenosis or aortic insufficiency. Mitral Valve Mitral valve is grossly normal, there is trace mitral regurgitation. Tricuspid Valve Tricuspid valve leaflets are minimally thickened, there is moderate tricuspid regurgitation, there is no mass thrombus or vegetation seen in right atrium. Pulmonic Valve Pulmonic valve is grossly normal. Great Vessels Aortic root is normal size. Ascending aorta arch and descending thoracic aorta is normal. Pericardium No significant pericardial effusion noted Conclusion 1. Normal left ventricular size, preserved left ventricular systolic function, visually estimated ejection fraction 55% with no regional wall motion abnormality. 2. Mildly enlarged right ventricle and right atrium. 3. Moderate tricuspid regurgitation. 4. No obvious thrombus, mass or vegetation seen. 5. Agitated saline contrast reveals 25 intracardiac shunt. Electronically signed by : Giuseppe German, 08/19/2020 15:39:32
--- NOTE | 2020-08-19 15:27 | P.PN_ITS ---
[facility] Anesthesia Checklist - Patient Identification Patient Identification: Arm Band - Structural Data Admitted From: Inpatient Planned Operative Procedure/s: GARY Consent for Planned Operative Procedure(s) Verified: Yes Verified Documents: Surgical Consent, History and Physical - NPO Status Verified Time NPO: 09:00 - Additional verifications Anesthesia Reactions: No Hx Blood Transfusions: Yes Blood Transfusion Reaction: No - Airway Assessment C-Spine Mobility Assessed: Yes (mp2) TMJ Mobility Assessed: Yes Dentition: Poor Dentition - Neurological Assessment Level of Consciousness: Awake, Alert - Anesthesia Plan Anesthesia Risk discussed: Yes Anesthesia Plan: Verified ASA Class: II Anesthesia Type: [facility] History I have reviewed the patient's past medical history: Yes Medical History: Reports:: Anxiety, Depression, Kidney Stones Denies:: Cancer, Diabetes Mellitus Type 1, Diabetes Mellitus Type 2, Internal Pacemaker, MRSA, Seizures *Have you ever received a pneumonia vaccine?: No *Have you received a flu vaccine this season?: No Other Medical History: Reports: Anemia, Liver Disease, Other. Denies: Blood Transfusion Reaction Anesthesia experience/problems:: nac Other Surgeries: Yes: Cholecystectomy, , Other. No: Pacemaker Amputation: No Fractures: Yes (ANKLE) - *Social History Smoking Status: Current every day smoker Tobacco Type: cigarettes # Packs/Day (cigarettes): 4 Alcohol Intake: current Alcohol Intake Frequency:: a few times a week Substance Use Type: heroin Last Used Substance: hours (ago) *Occupational Status:: unemployed Housing: house Household Members: family, children *Travel in the last 8 weeks: None - Psychiatric History Pschychiatric History:: Reports:: Anxiety, Depression Family Hx:: No significant family history
--- NOTE | 2020-08-19 16:33 | HMH.ORTHOCON ---
*Admission Date: 08/19/20 *Reason for consult:: L knee, R ankle pain *History of present illness: 34-year-old female admitted overnight through the emergency room with pain in the left knee and right ankle without recent trauma, injury or fevers. She has a remote history of ORIF of the right ankle and has not had any redness or swelling around the ankle recently. No open wounds over either the right ankle or left knee. She does have a history of IV drug use and there was some concern about possible infection. She has been afebrile, vital stable, but inflammatory markers have been elevated. Drug screen was positive for opiates on admission, she has been through rehabilitation programs in the past and is on long-term Suboxone. On admission she was started on IV vancomycin. When I entered the room to interview the patient, she is sleeping and difficult to awaken. She answers questions minimally, with simple yes or no answers or head nods. She consents to physical exam, which she tolerates well without complaints of pain. [facility] History I have reviewed the patient's past medical history: Yes Medical History: Reports:: Anxiety, Depression, Kidney Stones Denies:: Cancer, Diabetes Mellitus Type 1, Diabetes Mellitus Type 2, Internal Pacemaker, MRSA, Seizures *Have you ever received a pneumonia vaccine?: No *Have you received a flu vaccine this season?: No Other Medical History: Reports: Anemia, Liver Disease, Other. Denies: Blood Transfusion Reaction Anesthesia experience/problems:: nac Other Surgeries: Yes: No Previous Surgery, Cholecystectomy, , Other. No: Pacemaker Amputation: No Fractures: Yes (ANKLE) - *Social History Smoking Status: Current every day smoker Tobacco Type: cigarettes # Packs/Day (cigarettes): 4 Alcohol Intake: current Alcohol Intake Frequency:: a few times a week Substance Use Type: heroin Last Used Substance: hours (ago) *Occupational Status:: unemployed Housing: house Household Members: family, children *Travel in the last 8 weeks: None - Psychiatric History Pschychiatric History:: Reports:: Anxiety, Depression Family Hx:: No significant family history Review of Systems - Review of Systems Review of systems:: pertinent systems reviewed and negative unless documented below - *Neurologic Denies localized weakness, Denies headache(s), Denies seizure-like activity Meds Home Medications Medication Instructions Recorded Confirmed Type Buspirone HCl [Buspirone 15 mg 15 mg PO TID 12/14/19 08/19/20 History Tablets] Doxepin HCl [Sinequin 50mg capsule] 100 mg PO HS 08/19/20 08/19/20 History buPROPion HCL [Bupropion Xl] 300 mg PO DAILY 08/19/20 08/19/20 History Allergies Allergy/AdvReac Type Severity Reaction Status Date / Time latex [LATEX] Allergy Unknown Verified 05/06/20 07:44 codeine Allergy Verified 05/06/20 07:44 Exam Vital signs and Labs for Last 24 Hours: Temp Pulse Resp BP Pulse Ox 97.9 F 48 L 16 134/73 99 08/19/20 16:15 08/19/20 16:15 08/19/20 16:15 08/19/20 16:15 08/19/20 16:15 Laboratory Results - last 24 hr 08/18/20 21:45: WBC 6.2, RBC 3.54 L, Hgb 10.4 L, Hct 32.2 L, MCV 91.2, MCH 29.5, MCHC 32.4, RDW 13.0, Plt Count 228, MPV 7.2 L, Neut % (Auto) 46.2, Lymph % (Auto) 39.4, [place] % (Auto) 4.8, Eos % (Auto) 8.8, Baso % (Auto) 0.8, Neut # (Auto) 2.8, Lymph # (Auto) 2.4, [place] # (Auto) 0.3, Eos # (Auto) 0.5 H, Baso # (Auto) 0.1, ESR > 140 H 08/18/20 21:45: Sodium 141, Potassium 3.8, Chloride 104, Carbon Dioxide 28, Anion Gap 12.8, BUN 18 H, Creatinine 1.10 H, Estimated Creat Clear 66, Estimated GFR 56 L, Est GFR ( Amer) 68, Glucose 98, Calcium 9.6, Total Bilirubin 0.4, AST 29, ALT 25, Alkaline Phosphatase 116, C-Reactive Protein 33.4 H, Total Protein 8.4 H, Albumin 4.4, Globulin 4.0 H, Albumin/Globulin Ratio 1.1, Procalcitonin 0.402 08/18/20 21:45: Lactate 1.2 03/18/21 22:05: Urine Color Yellow, Urine Appearance Clear, Urine pH 6.0, Ur Specific [place] >=
--- NOTE | 2020-08-19 18:31 | PC.NURSE ---
PT IS RESTING IN BED. TOLERATED GARY WELL THIS AFTERNOON. PT HAS BEEN VERY DROWSY T/O MOST OF THE SHIFT BUT HAS BEEN AWAKE AND MORE ALERT SINCE DINNER TIME. PT HAS BEEN EATING AND DRINKING WELL. AFTER DINNER SHE ASKED IF SHE COULD HAVE CANDY TO SNACK ON T/O THE NIGHT. PT HAS BEEN AMBULATING TO THE BATHROOM WITH STANDBY ASSIST. SOME SWELLING NOTED TO THE LEFT KNEE AND TENDERNESS WITH PALPATION. PALPABLE PULSES. PT STATES SHE HAS NO DISCOMFORT IN HER CHEST OR ABDOMEN. ABDOMEN SOFT/NON TENDER WITH ACTIVE BOWEL SOUNDS. VSS. PT'S RESTING HR HAS BEEN 40-50. O2 SATURATION 96-100% ON RA. LUNG SOUNDS CLEAR. SCATTERED BRUISING NOTED. WILL CONTINUE TO MONITOR.
--- NOTE | 2020-08-19 22:14 | PC.NURSE ---
patient requesting to restart suboxone, dr. art pagecarlos. rn informed to call pharmacist utilization coordinator to see about getting it restarted. lacey brunner, situation discussed, lacey checked into previous prescription and notified rn that patient would have to be seen at the clinic to be restarted on it due to previous prescription being in june
[2020-08-20 04:00] VITALS: BP 124/70; PULSE 50; RESP 16; TEMP 36.8; O2SAT 100
[2020-08-20 05:00] VITALS: BMI 25.9
--- NOTE | 2020-08-20 06:06 | PC.NURSE ---
shift summary patient has rested the remainder of night after saboxone discussion. has denied nausea, vomiting or diarrhea. on occasion appears anxious and has hot flashes. ambulates to restroom with standby assist, voiding clear yellow urine. left lower extremity remains free of any visible trauma but patient states that it still feels the same.
[2020-08-20 08:00] VITALS: BP 126/58; PULSE 64; RESP 16; TEMP 36.7; O2SAT 97
[2020-08-20 08:33] LABS: Basophils # 0.1 K/mm3 (0-0.2); Basophils % 0.9 % (0.1-2.0); Eosinophils # 0.1 K/mm3 (0.0-0.4); Hematocrit 28.9 % (37.0-47.0); Hemoglobin 9.5 g/dL (12.2-16.2); Lymphocytes # 2.6 K/mm3 (0.7-4.5); Lymphocytes % 47.2 % (10-50); Mean Corpuscular HGB Conc 32.8 g/dL (31.8-35.4); Mean Corpuscular Volume 91.4 fl (81-99); Mean Platelet Volume 8.5 fl (7.4-10.4); Monocytes # 0.2 K/mm3 (0.1-1.0); Monocytes % 3.9 % (1.7-9.3); Neutrophils # 2.6 K/mm3 (1.8-7.8); Platelet Count 256 K/mm3 (142-424); Red Blood Count 3.17 M/mm3 (4.20-5.40); White Blood Count 5.5 K/mm3 (4.8-10.8)
[2020-08-20 08:41] LABS: Anion Gap 9.8 mEq/L (5-15); Blood Urea Nitrogen 16 mg/dl (7-17); Calcium 8.7 mg/dl (8.4-10.2); Carbon Dioxide 22 mmol/L (22.0-30.0); Chloride 114 mmol/L (98-107); Creatinine Clearance Estimated 95 mL/min (50-200); Estimated Glomerular Filt Rate 63 ml/min (>60); GFR (African American) 76 ML/MIN (>60); Glucose 141 mg/dl (74-100); Potassium 3.8 mmoL/L (3.5-5.1); Sodium 142 mmol/L (136-145)
--- NOTE | 2020-08-20 09:09 | HMH.DCSUM ---
General - General Admission date:: 08/19/20 Discharge date: 08/20/20 HPI HPI: 34 yr old female presented to ed with c/o over the last few days pain to lt knee area and rt ankle w/o fever or trauma - has had orif rt ankle in past and does admit to iv drug use - no chest or abd pain - no rash. Pt was admitted to have further work up on knee and ankle pain due to hx of iv drug user. Hospital Course Hospital Course: pt has progressive more alert and was able to tolerate diet and ambulate - occ pain in knee - pt was seen by ortho -year-old female admitted overnight through the emergency room with pain in the left knee and right ankle without recent trauma, injury or fevers. She has a remote history of ORIF of the right ankle and has not had any redness or swelling around the ankle recently. No open wounds over either the right ankle or left knee. She does have a history of IV drug use and there was some concern about possible infection. She has been afebrile, vital stable, but inflammatory markers have been elevated. Drug screen was positive for opiates on admission, she has been through rehabilitation programs in the past and is on long-term Suboxone. On admission she was started on IV vancomycin. When I entered the room to interview the patient, she is sleeping and difficult to awaken. She answers questions minimally, with simple yes or no answers or head nods. She consents to physical exam, which she tolerates well without complaints of pain. 4yo F admitted with elevated inflammatory markers + c/o L knee/R ankle pain, h/o IV drug use including recent use -- I have low suspicion for septic arthritis of L knee or R ankle -- no acute abnormality seen on L knee XR, R ankle appears well-healed -- recommend PT/OT, WBAT BLE -- f/u as outpatient if/when needed after discharge she also was seen by card -Recurrent IV drug user with history of rehabilitation admissions in the past A. Abnormal echocardiogram (questionable right atrial abnormality), 08/19/2020 with recommendation for transesophageal echocardiogram. 2. History of right ankle surgery 3. Anxiety/depression History of present illness: 34 yr old female presented to ed with c/o over the last few days pain to lt knee area and rt ankle w/o fever or trauma - has had orif rt ankle in past and does admit to iv drug use - no chest or abd pain - no rash. Pt was admitted to have further work up on knee and ankle pain due to hx of iv drug user. 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 Landry Echocardiogram shows possible intracardiac abnormality (possible right atrial mass or vegetation) with recommendation for GARY. Pt relates last dose of IV heroin yesterday morning. Discussed echo findings and recommendation for GARY. Questions answered with pt agreeing to proceed today. She states last meal was 9 AM. GARY was negative for masses, thrombi or vegetations. Mild to moderate tricuspid regurgitation noted. her labs have been stable and she will be d/c to see pcp or our office next week - did discuss drug rehab with pt who says she has the numbers and will consider this Objective Vital signs: Temp Pulse Resp BP Pulse Ox 98.0 F 64 16 126/58 L 97 08/20/20 08:00 08/20/20 08:00 08/20/20 08:00 08/20/20 08:00 08/20/20 08:00 no acute distress - *Routine HEENT Exam Head: Present: normocephalic Eye: Present: EOMI, PERRL ENT: Present: mucous membranes dry - *Routine Neck Exam Present: supple - *Routine Respiratory Exam Present: CTA bilaterally - *Routine Cardiovascular Exam Present: RRR - *Routine Abdominal Exam Present: soft - *Routine Extremities Exam Present: full ROM. Absent: tenderness, joint swelling Comments: no reddness - *Routine Skin Exam Present: intact - *Routine Neurological Exam Present: alert, oriented X3, CN II-XII intact - Routine Psychiatric Exam Present: normal affect Results Labs on day of discharge: Labs from [facility]
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
[2020-08-23 07:11] LABS: Amphetamine Positive (.); Amphetamines Positive (.); Methamphetamine Positive (.)
[2020-08-23 13:38] LABS: Amphetamine (GC/MS) >3000 ng/mL (Cutoff=500); Methamphetamine (GC/MS) >3000 ng/mL (Cutoff=500)
== END 2020-08-20 11:45 | disposition home or self-care (01) ==
LOC: ER 08-19 00:45 → 2ND 08-19 01:14
PROVIDERS: Internal Medicine Cardiovascular Disease; Nurse Practitioner Family; Admitting Provider Emergency Medicine; Emergency Provider Emergency Medicine; Visit Provider Family Medicine
DX: M25.562 Pain in left knee (principal); Z72.0 Tobacco use; F11.20 Opioid dependence, uncomplicated
CPT/HCPCS: 36415; 71046; 72126; 72129; 72132; 72170; 73562; 73610; 80048; 80053; 80305; 80324; 81001; 83605; 83735; 84145; 85025; 85651; 86140; 87040; 93306; 93312; 93970; 96365; 96367; 96372; 96375; 97162; 97166; 99284; G0378; J3370; Q9967; U0003

== ENCOUNTER 2020-10-24 10:15 | Emergency (ER) | payer OTHER, SELFPAY ==
[2020-10-24 10:16] VITALS: BP 117/66; PULSE 92; RESP 16; TEMP 36.8; O2SAT 99; BMI 25.0
--- NOTE | 2020-10-24 10:31 | XR_ITS ---
PROCEDURE: XR KNEE LT 3V CLINICAL INDICATION: pain COMPARISON: CR XR KNEE LT 3V from 08/18/2020 FINDINGS: No fracture or dislocation. No lytic or blastic change. There is normal mineralization. The joint spaces are well-preserved. No significant degenerative/arthritic changes. No erosive changes evident. Other findings:There is increased density in the suprapatellar region suggesting joint effusion. IMPRESSION: Possible knee joint effusion otherwise negative Dictated by: Julian Garcia MD 10/24/2020 11:18 Julian Garcia MD in [place] 10/24/2020 11:18
[2020-10-24 10:55] VITALS: BP 118/70; PULSE 72; RESP 18; O2SAT 98
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
[2020-10-24 11:42] VITALS: BP 117/69; PULSE 82; RESP 16; TEMP 36.6; O2SAT 96
== END 2020-10-24 11:44 | disposition home or self-care (01) ==
PROVIDERS: Emergency Provider Emergency Medicine; PCP Internal Medicine Adolescent Medicine
DX: S83.92XA Sprain of unspecified site of left knee, initial encounter (principal); X50.1XXA Overexertion from prolonged static or awkward postures, initial encounter; Y92.89 Other specified places as the place of occurrence of the external cause; F41.8 Other specified anxiety disorders; Z87.442 Personal history of urinary calculi; F15.11 Other stimulant abuse, in remission; Z91.040 Latex allergy status; Z88.5 Allergy status to narcotic agent
CPT/HCPCS: 73562; 99282

== ENCOUNTER 2022-04-18 21:34 | Emergency (ER) | payer OTHER, SELFPAY ==
[2022-04-18 21:35] VITALS: BP 133/69; PULSE 79; RESP 16; TEMP 36.9; O2SAT 100; BMI 22.0
[2022-04-18 22:15] LABS: Microscopic, Urine URINE MICROSCOPIC (MICROSCOPIC)
[2022-04-18 22:19] LABS: Appearance,Urine CLEAR (Clear); Bilirubin,Urine Negative (Negative); Blood, Urine Negative (Negative); Color,Urine YELLOW (Yellow); Glucose,Urine (UA) Negative (Negative); Ketones,Urine TRACE (Negative); Leukocyte Esterase,Urine 2+ (Negative); Nitrate,Urine Negative (Negative); Protein,Urine Negative (Negative); Specific Gravity, Urine >= 1.030 (1.005-1.030); Urobilinogen,Urine 0.2 EU/dl (0.2)
[2022-04-18 22:20] LABS: Urine Pregnancy, HCG Qual. Negative (Negative)
[2022-04-18 22:48] LABS: Bacteria,Urine 1+ /lpf; RBC,Urine Occasional #/hpf (0-3); WBC,Urine 20-50 #/hpf (0-3)
--- NOTE | 2022-04-18 23:45 | CT_ITS ---
PROCEDURE INFORMATION: Exam: CT Abdomen And Pelvis With Contrast Exam date and time: 04/19/2022 12:49 AM Age: 36 years old Clinical indication: Abdominal pain; Localized; Lower; Prior surgery; Surgery type: C sections; Additional info: Low abd back pain TECHNIQUE: Imaging protocol: Computed tomography of the abdomen and pelvis with contrast. Radiation optimization: All CT scans at this facility use at least one of these dose optimization techniques: automated exposure control; mA and/or kV adjustment per patient size (includes targeted exams where dose is matched to clinical indication); or iterative reconstruction. Contrast material: ISOVUE; Contrast volume: 75 ml; Contrast route: IV; COMPARISON: CT ABDOMEN PELVIS W CON 05/06/2020 8:15 AM FINDINGS: Lungs: Visualized lung bases are clear. Heart: Heart size normal. Mediastinal space: The visualized distal esophagus is largely contracted without gross abnormality. Liver: Mild hepatomegaly measuring 19 cm craniocaudal. Normal contour. No mass lesions. No intrahepatic biliary ductal dilatation. Gallbladder and bile ducts: Prior cholecystectomy with no significant dilatation of the common bile duct. Pancreas: Normal. No inflammatory changes or ductal dilation. Spleen: Mild splenomegaly measuring 13.7 cm craniocaudal. No focal splenic lesions. Adrenal glands: Normal. No adrenal mass. Kidneys and ureters: Small right kidney with irregular cortical contour suggesting chronic renal cortical scarring, unchanged from 2019. No hydronephrosis or hydroureter. 3 mm nonobstructive left renal stone. No ureteral stones are identified. Small bilateral intrapelvic phleboliths are unchanged in appearance from 05/06/2020. Stomach and bowel: The stomach contains moderate food content but is otherwise unremarkable. The small bowel is nondilated with no gross abnormality. There is a moderate amount of stool distributed throughout the colon suggesting constipation. Appendix: The appendix is normal in caliber and demonstrates no evidence of appendicitis. Intraperitoneal space: No free fluid or air. Vasculature: No acute process. No abdominal aortic aneurysm. Lymph nodes: No adenopathy. Urinary bladder: The urinary bladder is largely contracted without gross abnormality. Reproductive: Unremarkable as visualized. Bilateral tubal ligation clips grossly well positioned. Bones/joints: No acute osseous abnormalities. 6 mm chronic appearing posterior mixed spondylotic protrusion L5-S1 contributes to moderate-severe canal stenosis with AP thecal sac dimension of 5-6 mm. Soft tissues: Small fatty umbilical hernia . No evidence of associated bowel herniation or strangulation. IMPRESSION: 1. No definite acute process. 2. Moderate colonic stool suggesting constipation. 3. Mild splenomegaly. 4. Mild hepatomegaly. 5. There is a 3 mm nonobstructive left renal stone. No ureteral stones or hydronephrosis. 6. Chronic appearing 6 mm posterior mixed spondylotic protrusion at L5-S1 contributing to moderate-severe canal stenosis at this level. 7. Additional nonemergent findings detailed above.
[2022-04-19] LABS: Basophils # 0.1 K/mm3 (0-0.2); Basophils % 1.5 % (0.1-2.0); Chloride 105 mmol/L (98-107); Eosinophils # 0.2 K/mm3 (0.0-0.4); Eosinophils % 3.1 % (0.1-12.0); Hematocrit 38.3 % (37.0-47.0); Hemoglobin 12.6 g/dL (12.2-16.2); Lymphocytes # 3.3 K/mm3 (0.7-4.5); Lymphocytes % 45.6 % (10-50); Mean Corpuscular Hemoglobin 29.7 pg (27.0-31.2); Mean Platelet Volume 8.6 fl (7.4-10.4); Monocytes # 0.2 K/mm3 (0.1-1.0); Monocytes % 2.4 % (1.7-9.3); Neutrophils # 3.4 K/mm3 (1.8-7.8); Neutrophils % 47.3 % (37.0-80.0); Platelet Count 224 K/mm3 (142-424); Red Blood Count 4.26 M/mm3 (4.20-5.40); Red Cell Distribution Width 14.2 % (11.5-17.5); White Blood Count 7.3 K/mm3 (4.8-10.8)
[2022-04-19 00:01] LABS: Sodium 147 mmol/L (136-145)
[2022-04-19 00:03] LABS: Alanine Aminotransferase 33 U/L (12-78); Alkaline Phosphatase 171 U/L (38-126); Aspartate Amino Transferase 35 U/L (14-36); Bilirubin,Total 0.4 mg/dl (0.2-1.3); Blood Urea Nitrogen 25 mg/dl (7-17); Creatinine Clearance Estimated 79 mL/min (50-200); Estimated Glomerular Filt Rate 62 ml/min (>60); GFR (African American) 75 ML/MIN (>60)
[2022-04-19 00:04] LABS: Albumin/Globulin Ratio 1.1 (1.1-1.8); Calcium 10.2 mg/dl (8.4-10.2); Carbon Dioxide 26 mmol/L (22.0-30.0); Globulin 4.6 g/dL (1.3-3.2); Glucose 79 mg/dl (74-100); Total Protein,Serum 9.6 g/dl (6.3-8.2)
[2022-04-19 00:09] LABS: C-Reactive Protein 1.6 mg/L (0-4)
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
[2022-04-19 01:59] VITALS: BP 129/67; PULSE 71; RESP 18; TEMP 36.9; O2SAT 97
[2022-04-19 02:35] LABS: Erythrocyte Sedimentation Rate 22 mm/hr (0-20)
[2022-04-19 02:58] LABS: Benzodiazepines Screen,Urine Negative ng/ml (<200)
[2022-04-19 02:59] LABS: Amphetamine/Metha Screen,Urine Negative ng/ml (<1000); Barbiturates Screen,Urine Negative ng/ml (<200)
[2022-04-19 03:00] LABS: Cannabinoid Screen,Urine Negative ng/ml (<50)
[2022-04-19 03:01] LABS: Cocaine Screen,Urine Negative ng/ml (<300); Methadone Screen,Urine Negative ng/ml (<300)
[2022-04-19 03:02] LABS: Opiate Screen,Urine Negative ng/ml (<300); Phencyclidine Screen,Urine Negative ng/ml (<25)
[2022-04-23 05:42] LABS: Neisseria gonorrhoeae, NAA Positive (Negative)
== END 2022-04-19 02:19 | disposition home or self-care (01) ==
PROVIDERS: Emergency Provider Emergency Medicine
DX: N76.0 Acute vaginitis (principal); A54.02 Gonococcal vulvovaginitis, unspecified; A59.01 Trichomonal vulvovaginitis; M54.9 Dorsalgia, unspecified; F32.A Depression, unspecified; F41.9 Anxiety disorder, unspecified; F17.210 Nicotine dependence, cigarettes, uncomplicated; Z79.899 Other long term (current) drug therapy; Z88.8 Allergy status to other drugs, medicaments and biological substances; Z91.040 Latex allergy status; T74.21XA Adult sexual abuse, confirmed, initial encounter
CPT/HCPCS: 74177; 80053; 80305; 81001; 81025; 85025; 85651; 86140; 87086; 87210; 87491; 87591; 96361; 96374; 96375; 99284; J0696; Q9967

== ENCOUNTER 2022-04-23 17:07 | Emergency (ER) | payer OTHER, SELFPAY ==
[2022-04-23 18:45] VITALS: BP 129/86; PULSE 82; RESP 18; TEMP 36.8; O2SAT 98; BMI 21.4
--- NOTE | 2022-04-23 19:00 | EXP.UTC ---
Discharge Plan Disposition Patient Disposition: Still a Patient Condition: Fair Prescriptions Prescriptions: No Action metronidazole 500 mg Tablet 500 mg PO TID Qty: 30 0RF minocycline 100 mg Capsule 100 mg PO BID Qty: 20 0RF ketorolac 10 mg tablet 10 mg PO TID 5 Days Qty: 10 0RF Referrals Follow up/Referrals: Omaira Michael APRN [Primary Care Provider] - See instructions Discharge ED Provider: Rebecca Morocho [facility] [place] General Stated complaint: body aches, chills, fatigue Time Seen by Provider: 04/23/22 19:00 History of Present Illness Provider Complaint: Patient state that she feels like she may be septic States that she has had sepsis before from a Kidney infection before States that she has been having low back pain, pain and pressure in her lower abdomen, fever, chills, body aches, felt SOA earlier and has been feeling tired and weak State that she feels just like she did when she was septic before so she wanted to come in and get checked for it before it got too bad Related Data Previous Rx's Medication Instructions Recorded ketorolac 10 mg tablet 10 mg PO TID 5 days #10 tabs 04/19/22 metronidazole 500 mg tablet 500 mg PO TID #30 tabs 04/19/22 minocycline 100 mg capsule 100 mg PO BID #20 caps 04/19/22 Allergies Allergy/AdvReac Type Severity Reaction Status Date / Time latex [LATEX] Allergy Unknown Verified 10/24/20 10:28 codeine Allergy Verified 10/24/20 10:28 [facility] Medical History (Updated 04/23/22 @ 19:00 by Valencia Wasserman RN) Anxiety Depression Kidney stone Urinary tract infection Surgical History (Updated 04/23/22 @ 19:00 by Valencia Wasserman RN) History of section History of cholecystectomy Social History (Updated 04/23/22 @ 19:00 by Valencia Wasserman RN) Smoking Status: Current every day smoker tobacco type: cigarettes packs per day: 1 second hand exposure: No alcohol intake: never substance use type: unknown 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al status: unemployed Travel in the last 8 weeks: None household members: family and children housing: house number of children: 3 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al exposures/hazards: No caffeine: Yes ROS Obtained: Yes All systems reviewed & no additional complaints except as documented and Yes Systems reviewed as appropriate & no additional complaints except as documented Constitutional Constitutional: Reports system reviewed and no additional complaints, except as documented, Reports as per HPI, Reports body ache, Reports chills, Reports fatigue, Denies fever(s), Reports poor appetite and Reports lethargy ENT Ears, Nose, Mouth, and Throat: Reports system reviewed and no additional complaints, except as documented and Reports as per HPI Cardiovascular Cardiovascular: Reports system reviewed and no additional complaints, except as documented and Reports as per HPI Respiratory Respiratory: Reports system reviewed and no additional complaints, except as documented, Reports as per HPI and Reports shortness of breath Gastrointestinal Gastrointestingal: Reports system reviewed and no additional complaints, except as documented, as per HPI and abdominal pain (pressure and pain in her lower abdomen) Genitourinary Female Genitourinary: Reports system reviewed and no additional complaints, except as documented, Reports as per HPI and Reports flank pain Musculoskeletal Musculoskeletal: Reports system reviewed and no additional complaints, except as documented, Reports as per HPI and Reports back pain Integumentary/Breasts Skin/Breast: Reports system reviewed and no additional complaints, except as documented and Reports as per HPI Endocrine Endocrine: Reports fatigue Physical Exam General General appearance: alert and in no apparent distress Respiratory Respiratory exam: Present normal lung sounds bilaterally; Absent respiratory distress or wheezes Cardiovascular Cardiovascular exa
--- NOTE | 2022-04-23 19:03 | XR_ITS ---
PROCEDURE INFORMATION: Exam: XR Chest Exam date and time: 04/23/2022 7:12 PM Age: 36 years old Clinical indication: Shortness of breath; Additional info: SOA TECHNIQUE: Imaging protocol: Radiologic exam of the chest. Views: 2 views. COMPARISON: CR XR CHEST 2V 08/18/2020 10:04 PM FINDINGS: Lungs: No evidence of pneumonia or interstitial edema. Pleural spaces: Unremarkable. No pleural effusion. No pneumothorax. Heart/Mediastinum: Unremarkable. No cardiomegaly. Bones/joints: Unremarkable. IMPRESSION: No evidence of pneumonia or interstitial edema.
[2022-04-23 19:58] LABS: Microscopic, Urine URINE MICROSCOPIC (MICROSCOPIC)
[2022-04-23 20:02] LABS: Appearance,Urine CLEAR (Clear); Bilirubin,Urine Negative (Negative); Blood, Urine Negative (Negative); Color,Urine YELLOW (Yellow); Glucose,Urine (UA) Negative (Negative); Ketones,Urine Negative (Negative); Leukocyte Esterase,Urine Negative (Negative); Nitrate,Urine Negative (Negative); Protein,Urine Negative (Negative); Specific Gravity, Urine >= 1.030 (1.005-1.030); Urobilinogen,Urine 0.2 EU/dl (0.2)
[2022-04-23 20:04] LABS: Urine Pregnancy, HCG Qual. Negative (Negative)
[2022-04-23 20:05] LABS: Basophils # 0.1 K/mm3 (0-0.2); Basophils % 1.9 % (0.1-2.0); Eosinophils # 0.2 K/mm3 (0.0-0.4); Eosinophils % 3.8 % (0.1-12.0); Hematocrit 35.4 % (37.0-47.0); Lymphocytes % 32.3 % (10-50); Mean Corpuscular HGB Conc 33.8 g/dL (31.8-35.4); Mean Corpuscular Hemoglobin 30.1 pg (27.0-31.2); Mean Platelet Volume 8.5 fl (7.4-10.4); Monocytes # 0.2 K/mm3 (0.1-1.0); Monocytes % 3.8 % (1.7-9.3); Neutrophils # 3.6 K/mm3 (1.8-7.8); Neutrophils % 58.2 % (37.0-80.0); Platelet Count 223 K/mm3 (142-424); Red Blood Count 3.97 M/mm3 (4.20-5.40); Red Cell Distribution Width 13.7 % (11.5-17.5); White Blood Count 6.2 K/mm3 (4.8-10.8)
[2022-04-23 20:06] VITALS: BP 128/78; PULSE 72; RESP 100; TEMP 36.8; O2SAT 100; BMI 21.2
--- NOTE | 2022-04-23 20:17 | CT_ITS ---
PROCEDURE INFORMATION: Exam: CT Abdomen And Pelvis With Contrast Exam date and time: 04/23/2022 8:30 PM Age: 36 years old Clinical indication: Fever and other: Chills; Prior surgery; Surgery type: C sections; Additional info: Flank pain, bilat flank pain TECHNIQUE: Imaging protocol: Computed tomography of the abdomen and pelvis with contrast. Radiation optimization: All CT scans at this facility use at least one of these dose optimization techniques: automated exposure control; mA and/or kV adjustment per patient size (includes targeted exams where dose is matched to clinical indication); or iterative reconstruction. Contrast material: ISOVUE; Contrast volume: 75 ml; Contrast route: IV; COMPARISON: CT ABDOMEN PELVIS W CON 04/19/2022 12:49 AM FINDINGS: Lungs: Click lung bases normal Liver: No focal hepatic lesions. Gallbladder and bile ducts: There has been a cholecystectomy. No biliary ductal dilation. Pancreas: No peripancreatic fluid stranding. No main pancreatic ductal dilation. Spleen: No splenomegaly. Adrenal glands: The adrenal glands are normal. Kidneys and ureters: Nephrograms are symmetric. No nephrolithiasis or hydroureteronephrosis on either side. No solid lesions. There is redemonstration of small right kidney with irregular cortex unchanged from 2020. Stomach and bowel: Unremarkable. No obstruction. No mucosal thickening. Appendix: A normal appendix is identified. Intraperitoneal space: Unremarkable. No free air. No significant fluid collection. Vasculature: Aorta is unremarkable. Major aortic branches are patent Lymph nodes: No evidence of retroperitoneal or mesenteric lymphadenopathy Urinary bladder: Urinary bladder is unremarkable. Reproductive: Bilateral tubal ligation. Pelvic viscera are otherwise unremarkable Bones/joints: Unremarkable. No acute fracture. Soft tissues: Unremarkable IMPRESSION: No acute abnormality in the abdomen or pelvis
[2022-04-23 20:18] LABS: Alanine Aminotransferase 33 U/L (12-78); Albumin Level 4.4 g/dl (3.5-5.0); Albumin/Globulin Ratio 1.2 (1.1-1.8); Alkaline Phosphatase 126 U/L (38-126); Anion Gap 17.4 mEq/L (5-15); Aspartate Amino Transferase 35 U/L (14-36); Bilirubin,Total 0.5 mg/dl (0.2-1.3); Blood Urea Nitrogen 29 mg/dl (7-17); Calcium 9.9 mg/dl (8.4-10.2); Carbon Dioxide 22 mmol/L (22.0-30.0); Chloride 107 mmol/L (98-107); Creatinine Clearance Estimated 70 mL/min (50-200); Estimated Glomerular Filt Rate 56 ml/min (>60); GFR (African American) 67 ML/MIN (>60); Globulin 3.6 g/dL (1.3-3.2); Glucose 123 mg/dl (74-100); Lactic Acid 0.9 mmol/L (0.7-2.1); Potassium 4.4 mmoL/L (3.5-5.1); Sodium 142 mmol/L (136-145)
[2022-04-23 20:36] LABS: Procalcitonin 0.125 ng/mL (0.0-2.0)
[2022-04-23 20:49] LABS: Bacteria,Urine Trace /lpf; WBC,Urine Occasional #/hpf (0-3)
--- NOTE | 2022-04-23 22:28 | CT_ITS ---
PROCEDURE INFORMATION: Exam: CT Lumbar Spine With Contrast Exam date and time: 04/23/2022 11:14 PM Age: 36 years old Clinical indication: Low back pain TECHNIQUE: Imaging protocol: Computed tomography of the lumbar spine with contrast. Radiation optimization: All CT scans at this facility use at least one of these dose optimization techniques: automated exposure control; mA and/or kV adjustment per patient size (includes targeted exams where dose is matched to clinical indication); or iterative reconstruction. Contrast material: ISOVUE; Contrast volume: 50 ml; Contrast route: IV; COMPARISON: CT LUMBAR SPINE W CON 08/18/2020 10:46 PM FINDINGS: Bones/joints: Standard lumbosacral anatomy with 5 [id number] lumbar type vertebral bodies. No evidence of acute fracture or malalignment. Multilevel degenerative changes resulting in varying degrees of mild to moderate spinal canal stenosis and neuroforaminal narrowing, most prominent at L5-S1. Soft tissues: Unremarkable. IMPRESSION: 1. No evidence of acute osseous abnormality in the lumbar spine. 2. Multi-level degenerative changes.
--- NOTE | 2022-04-23 22:28 | CT_ITS ---
PROCEDURE INFORMATION: Exam: CT Thoracic Spine With Contrast Exam date and time: 04/23/2022 11:06 PM Age: 36 years old Clinical indication: Pain in thoracic spine TECHNIQUE: Imaging protocol: Computed tomography of the thoracic spine with contrast. Radiation optimization: All CT scans at this facility use at least one of these dose optimization techniques: automated exposure control; mA and/or kV adjustment per patient size (includes targeted exams where dose is matched to clinical indication); or iterative reconstruction. Contrast material: ISOVUE; Contrast volume: 50 ml; Contrast route: IV; COMPARISON: CT THORACIC SPINE W CON 08/18/2020 10:41 PM FINDINGS: Bones/joints: No acute fracture or malalignment. Soft tissues: Unremarkable. Intraperitoneal space: No acute findings or suspicious mass lesions in the visualized thorax or upper abdomen. IMPRESSION: No evidence of acute osseous abnormality in the thoracic spine.
--- NOTE | 2022-04-23 22:28 | CT_ITS ---
PROCEDURE INFORMATION: Exam: CT Cervical Spine With Contrast Exam date and time: 04/23/2022 11:02 PM Age: 36 years old Clinical indication: Neck pain TECHNIQUE: Imaging protocol: Computed tomography of the cervical spine with contrast. Radiation optimization: All CT scans at this facility use at least one of these dose optimization techniques: automated exposure control; mA and/or kV adjustment per patient size (includes targeted exams where dose is matched to clinical indication); or iterative reconstruction. Contrast material: ISOVUE; Contrast volume: 50 ml; Contrast route: IV; COMPARISON: SD CT CERVICAL SPINE W CON 08/18/2020 10:27 PM FINDINGS: Bones/joints: No acute fracture. Normal alignment. Lungs: No acute abnormality or suspicious mass lesion in the visualized lung apices. Soft tissues: Unremarkable. IMPRESSION: No evidence of acute osseous abnormality in the cervical spine.
[2022-04-23 23:01] LABS: C-Reactive Protein 4.1 mg/L (0-4)
[2022-04-23 23:06] LABS: Barbiturates Screen,Urine Negative ng/ml (<200); Benzodiazepines Screen,Urine Negative ng/ml (<200)
[2022-04-23 23:07] LABS: Amphetamine/Metha Screen,Urine Positive ng/ml (<1000)
[2022-04-23 23:08] LABS: Cannabinoid Screen,Urine Negative ng/ml (<50); Cocaine Screen,Urine Negative ng/ml (<300)
[2022-04-23 23:09] LABS: Methadone Screen,Urine Negative ng/ml (<300); Opiate Screen,Urine Negative ng/ml (<300)
[2022-04-23 23:10] LABS: Phencyclidine Screen,Urine Negative ng/ml (<25)
[2022-04-23 23:15] LABS: Erythrocyte Sedimentation Rate 56 mm/hr (0-20)
--- NOTE | 2022-04-24 00:27 | HMH.EDABDPAI ---
Discharge Plan Disposition Patient Disposition: Home, Self-Care Condition: Fair Prescriptions Prescriptions: No Action metronidazole 500 mg Tablet 500 mg PO TID Qty: 30 0RF minocycline 100 mg Capsule 100 mg PO BID Qty: 20 0RF ketorolac 10 mg tablet 10 mg PO TID 5 Days Qty: 10 0RF Referrals Follow up/Referrals: Omaira Michael APRN [Primary Care Provider] - See instructions Skye Mendiola DO [Staff Physician] - See instructions Clinical Impressions Clinical Impression: Acute flank pain, Abnormal drug screen Instructions Patient Instructions: DI for Flank Pain Discharge ED Provider: Cristopher Landry Abdominal Pain HPI General Chief Complaint: Abdominal Pain Stated Complaint: body aches, chills, fatigue Time Seen by Provider: 04/23/22 19:00 Mode of Arrival: Ambulatory Source of Information: Patient Limitations: No Limitations Description of Symptoms (Recalled from ER Triage Doc. by RN): PATIENT C/O CHILLS, DIZZINESS, SOA, FATIGUE, BACK PAIN AND bilateral flank pain. pt was seen in er and was diagnosed with TRICHOMONIASIS and feels like she is septic. History of Present Illness HPI narrative: pt with recent ed visit for vag d/c - pt with feeling of fatigue - and back pain- no fever and no vag d/c MD complaint: abdominal pain Onset (ago): day(s) Consistency: intermittent Location: L flank Severity: moderate Associated symptoms: denies other symptoms Related Data Previous Rx's Medication Instructions Recorded ketorolac 10 mg tablet 10 mg PO TID 5 days #10 tabs 04/19/22 metronidazole 500 mg tablet 500 mg PO TID #30 tabs 04/19/22 minocycline 100 mg capsule 100 mg PO BID #20 caps 04/19/22 Allergies Allergy/AdvReac Type Severity Reaction Status Date / Time latex [LATEX] Allergy Unknown Verified 10/24/20 10:28 codeine Allergy Verified 10/24/20 10:28 [facility] Medical History (Updated 04/24/22 @ 00:37 by Cristopher Landry MD) Anxiety Depression Kidney stone Urinary tract infection Surgical History (Updated 04/23/22 @ 19:00 by Valencia Wasserman, JENN) History of section History of cholecystectomy Social History (Updated 04/23/22 @ 19:00 by Valencia Wasserman RN) Smoking Status: Current every day smoker tobacco type: cigarettes packs per day: 1 second hand exposure: No alcohol intake: never substance use type: unknown 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al status: unemployed Travel in the last 8 weeks: None household members: family and children housing: house number of children: 3 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: [employer] 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al exposures/hazards: No caffeine: Yes ROS Obtained: Yes All systems reviewed & no additional complaints except as documented Physical Exam General General appearance: alert and in no apparent distress Head Head exam: normocephalic Eye Eye exam: Present PERRL and EOMI; Absent scleral icterus ENT ENT exam: Present mucous membranes moist Neck Neck exam: Present trachea midline Respiratory Respiratory exam: Present normal lung sounds bilaterally; Absent respiratory distress Cardiovascular Cardiovascular exam: Present regular rate; Absent systolic murmur Abdominal Exam Abdominal exam: Present soft; Absent tenderness Extremities Exam Extremities exam: Present full ROM Back Exam Back exam: Present full ROM, tenderness and sciatic notch tenderness (L); Absent vertebral tenderness, straight leg raise (R) or straight leg raise (L) Neurological Exam Neurological exam: Present alert, oriented X3 and CN II-XII intact; Absent motor sensory deficit Psychiatric Psychiatric exam: Present normal affect Skin Skin exam: Absent rash Lymphatic Lymphatic Findings: no adenopathy Medical Decision Making Medical Records Medical records reviewed: Yes I reviewed the patient's medical records. Oneal Inquiry Pt receiving controlled substance: No Vital Signs: 04/23/22 18:45 04/23/22 20:06 Temperature 98.2 F 98.
[2022-04-24 00:49] VITALS: BP 115/74; PULSE 70; RESP 18; TEMP 36.8; O2SAT 100
== END 2022-04-24 00:51 | disposition home or self-care (01) ==
LOC: UTC 19:10 → ER 19:58
PROVIDERS: Emergency Medicine; Nurse Practitioner; Emergency Provider Emergency Medicine; PCP Nurse Practitioner Family
DX: R10.9 Unspecified abdominal pain (principal); F15.90 Other stimulant use, unspecified, uncomplicated
CPT/HCPCS: 71046; 72126; 72129; 72132; 74177; 80053; 80305; 81001; 81025; 83605; 84145; 85025; 85651; 86140; 96365; 96375; 99285; Q9967

== ENCOUNTER 2022-11-15 09:59 | Emergency (ER) | payer OTHER, SELFPAY ==
[2022-11-15 10:19] LABS: Apearance,Urine Clear (Clear); Color,Urine Yellow (Yellow)
[2022-11-15 10:20] VITALS: BP 118/68; PULSE 64; RESP 18; TEMP 36.8; O2SAT 99; BMI 25.7
[2022-11-15 10:20] LABS: Bilirubin,Urine Negative (Negative); Blood, Urine Negative (Negative); Glucose,Urine (UA) Negative (Negative); Ketones,Urine Negative (Negative); PH,Urine 5.5 (5.0-8.5); Protein,Urine Negative (Negative); UTC Leukocyte Esterase,Urine Negative (Negative); UTC Nitrate,Urine Negative (Negative); Urobilinogen,Urine 0.2 EU/dl (0.2)
--- NOTE | 2022-11-15 10:26 | EXP.UTC ---
Discharge Plan Disposition Patient Disposition: Home, Self-Care Condition: Good Prescriptions Prescriptions: No Action metronidazole 500 mg Tablet 500 mg PO TID Qty: 30 0RF minocycline 100 mg Capsule 100 mg PO BID Qty: 20 0RF ketorolac 10 mg tablet 10 mg PO TID 5 Days Qty: 10 0RF Referrals Follow up/Referrals: Provider,Referral, [Primary Care Provider] - See instructions Activity Restrictions/Add. Instructions Additional Instructions/Restrictions: Make sure to be drinking plenty of fluids Follow up with your Family Doctor if no improvement or any worsing of symptoms Return if needed Straight to ER if any life threatening symptoms Clinical Impressions Clinical Impression: Symptoms of urinary tract infection Instructions Patient Instructions: DI for Flank Pain Discharge ED Provider: Rebecca Morocho [facility] General Stated complaint: possible UTI Time Seen by Provider: 11/15/22 10:26 History of Present Illness Provider Complaint: Patient states that she has been having achy like feeling in her lower back and feeling like she is urinating more than usual and had a little burning this morning worried that she may have a UTI so she came in to get it checked Related Data Previous Rx's Medication Instructions Recorded ketorolac 10 mg tablet 10 mg PO TID 5 days #10 tabs 04/19/22 metronidazole 500 mg tablet 500 mg PO TID #30 tabs 04/19/22 minocycline 100 mg capsule 100 mg PO BID #20 caps 04/19/22 Allergies Allergy/AdvReac Type Severity Reaction Status Date / Time latex [LATEX] Allergy Unknown Verified 10/24/20 10:28 codeine Allergy Verified 10/24/20 10:28 [facility] Disclaimer: The information contained in this section may have been updated after the patient was seen, as this information can be updated by other users. Medical History (Updated 11/15/22 @ 10:31 by Rebecca Morocho APRN) Anxiety Depression Kidney stone Urinary tract infection Surgical History (Updated 04/23/22 @ 19:00 by Valencia Wasserman RN) History of section History of cholecystectomy Social History (Updated 04/23/22 @ 19:00 by Valencia Wasserman RN) Smoking Status: Current every day smoker tobacco type: cigarettes packs per day: 1 second hand exposure: No alcohol intake: never substance use type: unknown 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al status: unemployed Travel in the last 8 weeks: None household members: family and children housing: house number of children: 3 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al exposures/hazards: No caffeine: Yes ROS Obtained: Yes All systems reviewed & no additional complaints except as documented and Yes Systems reviewed as appropriate & no additional complaints except as documented ENT Ears, Nose, Mouth, and Throat: Reports system reviewed and no additional complaints, except as documented and Reports as per HPI Cardiovascular Cardiovascular: Reports system reviewed and no additional complaints, except as documented and Reports as per HPI Respiratory Respiratory: Reports system reviewed and no additional complaints, except as documented and Reports as per HPI Gastrointestinal Gastrointestingal: Reports system reviewed and no additional complaints, except as documented and as per HPI; Denies abdominal pain, nausea or vomiting Genitourinary Female Genitourinary: Reports system reviewed and no additional complaints, except as documented, Reports as per HPI, Reports urinary frequency and Reports urinary urgency Comments: and having achy like feeling in her lower back on and off Physical Exam General General appearance: alert and in no apparent distress ENT ENT exam: Present mucous membranes moist Respiratory Respiratory exam: Present normal lung sounds bilaterally; Absent respiratory distress or wheezes Cardiovascular Cardiovascular exam: Present regular rate, normal rhythm and normal heart sounds Abdominal Exam Abdominal exam: Pre
[2022-11-15 10:33] VITALS: BP 118/68; PULSE 64; RESP 18; TEMP 36.8; O2SAT 99
== END 2022-11-15 10:35 | disposition home or self-care (01) ==
PROVIDERS: Emergency Provider Nurse Practitioner
DX: R39.89 Other symptoms and signs involving the genitourinary system (principal); M54.59 Other low back pain; F17.210 Nicotine dependence, cigarettes, uncomplicated; F41.9 Anxiety disorder, unspecified; F32.A Depression, unspecified
CPT/HCPCS: 81003; 99212; 99214; G0463

== ENCOUNTER 2023-02-14 10:15 | Emergency (ER) | payer OTHER, SELFPAY ==
[2023-02-14 10:45] VITALS: BP 110/57; PULSE 60; RESP 18; TEMP 36.6; O2SAT 100; BMI 22.0
[2023-02-14 10:49] LABS: Microscopic, Urine URINE MICROSCOPIC (MICROSCOPIC)
--- NOTE | 2023-02-14 10:49 | EXP.UTC ---
Discharge Plan Disposition Patient Disposition: Home, Self-Care Condition: Good Prescriptions Prescriptions: New phenazopyridine [Pyridium] 200 mg tablet 200 mg PO Q8H 2 Days Qty: 6 0RF sulfamethoxazole-trimethoprim [Bactrim DS] 800-160 mg Tablet 1 tab PO BID Qty: 14 0RF No Action metronidazole 500 mg Tablet 500 mg PO TID Qty: 30 0RF minocycline 100 mg Capsule 100 mg PO BID Qty: 20 0RF ketorolac 10 mg tablet 10 mg PO TID 5 Days Qty: 10 0RF Referrals Follow up/Referrals: Provider,Referral, MD [Primary Care Provider] - See instructions Activity Restrictions/Add. Instructions Additional Instructions/Restrictions: Drink plenty of fluids. Take tylenol or ibuprofen for pain or fever. Take the medications as directed. Follow up with your regular doctor. GO TO THE ER FOR ANY WORSENING SYMPTOMS The pyridium will make your urine turn orange, this is an expected side effect. It will stain your clothes if it comes into contact with them. We will culture the urine. That will tell what bacteria is causing your infection and which antibiotics will treat it best. Sometimes the first antibiotic we prescribe turns out to not work against different bacteria. So, make sure you follow up within 3 days if you are not getting better. Clinical Impressions Clinical Impression: UTI (urinary tract infection) Stand Alone Forms Stand Alone Forms: Work/School Release Instructions Patient Instructions: Urinary Tract Infection, Urine Culture, Phenazopyridine Discharge ED Provider: Azeem Mckay [facility] General Stated complaint: frequency, discomfort Time Seen by Provider: 02/14/23 10:49 History of Present Illness Provider Complaint: She states that for the past 2 days she has had low back pain, dysuria, and urinary frequency. Related Data Previous Rx's Medication Instructions Recorded ketorolac 10 mg tablet 10 mg PO TID 5 days #10 tabs 04/19/22 metronidazole 500 mg tablet 500 mg PO TID #30 tabs 04/19/22 minocycline 100 mg capsule 100 mg PO BID #20 caps 04/19/22 phenazopyridine 200 mg tablet 200 mg PO Q8H 2 days #6 tabs 02/14/23 (Pyridium) sulfamethoxazole 800 1 tab PO BID #14 tabs 02/14/23 mg-trimethoprim 160 mg tablet (Bactrim DS) Allergies Allergy/AdvReac Type Severity Reaction Status Date / Time latex [LATEX] Allergy Unknown Verified 02/14/23 10:54 codeine Allergy Verified 02/14/23 10:54 [facility] Disclaimer: The information contained in this section may have been updated after the patient was seen, as this information can be updated by other users. Medical History (Updated 02/14/23 @ 11:23 by Azeem Mckay APRN) Anxiety Depression Kidney stone Urinary tract infection Surgical History History of section History of cholecystectomy Social History Smoking Status: Current every day smoker tobacco type: cigarettes packs per day: 1 second hand exposure: No alcohol intake: never substance use type: unknown 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al status: unemployed Travel in the last 8 weeks: None household members: family and children housing: house number of children: 3 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al exposures/hazards: No caffeine: Yes ROS Obtained: Yes All systems reviewed & no additional complaints except as documented Constitutional Constitutional: Reports system reviewed and no additional complaints, except as documented, Denies chills and Denies fever(s) Eyes Eyes: Denies eye discharge ENT Ears, Nose, Mouth, and Throat: Denies dysphagia, Denies sore throat and Denies throat swelling Cardiovascular Cardiovascular: Denies chest pain and Denies dyspnea Respiratory Respiratory: Denies chest congestion, Denies cough and Denies dyspnea Gastrointestinal Gastrointestingal: Denies abdominal pain, constipation,
[2023-02-14 10:57] LABS: Appearance,Urine CLEAR (Clear); Blood, Urine Negative (Negative); Color,Urine YELLOW (Yellow); Glucose,Urine (UA) Negative (Negative); Ketones,Urine Negative (Negative); Leukocyte Esterase,Urine Negative (Negative); Nitrate,Urine Negative (Negative); Protein,Urine Negative (Negative); Specific Gravity, Urine >= 1.030 (1.005-1.030); Urobilinogen,Urine 0.2 EU/dl (0.2)
[2023-02-14 11:31] VITALS: BP 110/57; PULSE 60; RESP 18; TEMP 36.6; O2SAT 100
[2023-02-14 11:40] LABS: Bilirubin,Urine Negative (Negative)
[2023-02-14 11:42] LABS: Bacteria,Urine 1+ /lpf
== END 2023-02-14 11:31 | disposition home or self-care (01) ==
PROVIDERS: Emergency Provider Nurse Practitioner Family
DX: N39.0 Urinary tract infection, site not specified (principal); B96.89 Other specified bacterial agents as the cause of diseases classified elsewhere; M54.59 Other low back pain; F17.210 Nicotine dependence, cigarettes, uncomplicated; F41.9 Anxiety disorder, unspecified; F32.A Depression, unspecified
CPT/HCPCS: 81001; 87086; 87088; 87186; 99212; 99214; G0463

== ENCOUNTER 2023-04-01 14:27 | Emergency (ER) | payer OTHER, SELFPAY ==
[2023-04-01 14:28] VITALS: BP 112/72; PULSE 59; RESP 16; TEMP 36.6; O2SAT 100; BMI 22.1
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
[2023-04-01 15:21] VITALS: BP 112/72; PULSE 59; RESP 16; TEMP 36.6; O2SAT 100
== END 2023-04-01 15:22 | disposition home or self-care (01) ==
PROVIDERS: Emergency Provider Student in an Organized Health Care Education/Training Program; PCP Nurse Practitioner Family
DX: B86 Scabies (principal); F17.210 Nicotine dependence, cigarettes, uncomplicated
CPT/HCPCS: 99282

== ENCOUNTER 2023-07-28 18:18 | Emergency (ER) | payer OTHER, SELFPAY ==
--- NOTE | 2023-07-28 18:27 | ED_ITS ---
Discharge Plan Disposition Patient Disposition: Home, Self-Care Condition: Good Prescriptions Prescriptions: New ciprofloxacin HCl [Cipro] 500 mg tablet 500 mg PO BID 5 Days Qty: 10 0RF No Action phenazopyridine [Pyridium] 200 mg tablet 200 mg PO Q8H 2 Days Qty: 6 0RF sulfamethoxazole-trimethoprim [Bactrim DS] 800-160 mg Tablet 1 tab PO BID Qty: 14 0RF permethrin 5 % cream 1 applic topical Q14D Qty: 60 0RF Rx Instructions: apply to all areas of the body from the neck to the soles of the feet; leave on for 14 hours before removing by washing. May repeat if still symptomatic after 14 days. metronidazole 500 mg Tablet 500 mg PO TID Qty: 30 0RF minocycline 100 mg Capsule 100 mg PO BID Qty: 20 0RF ketorolac 10 mg tablet 10 mg PO TID 5 Days Qty: 10 0RF Referrals Follow up/Referrals: Omaira Michael APRN [Primary Care Provider] - See instructions Activity Restrictions/Add. Instructions Additional Instructions/Restrictions: Drink plenty of fluids. Take tylenol or ibuprofen for pain or fever. Take the medications as directed. Follow up with your regular doctor. GO TO THE ER FOR ANY WORSENING SYMPTOMS Clinical Impressions Clinical Impression: UTI (urinary tract infection) Instructions Patient Instructions: DI for Low Back Pain Discharge ED Provider: Azeem Mckay [facility] General Stated complaint: back pain Time Seen by Provider: 07/28/23 18:27 History of Present Illness Provider Complaint: She states that for the past 2 weeks she has had low back pain that radiates around both her flanks at times. The pain comes and goes. She denies any other symptoms. She denies any fall or injury. Related Data Previous Rx's Medication Instructions Recorded ketorolac 10 mg tablet 10 mg PO TID 5 days #10 tabs 04/19/22 metronidazole 500 mg tablet 500 mg PO TID #30 tabs 04/19/22 minocycline 100 mg capsule 100 mg PO BID #20 caps 04/19/22 phenazopyridine 200 mg tablet 200 mg PO Q8H 2 days #6 tabs 02/14/23 (Pyridium) sulfamethoxazole 800 1 tab PO BID #14 tabs 02/14/23 mg-trimethoprim 160 mg tablet (Bactrim DS) permethrin 5 % topical cream 1 applic topical Q14D 2 doses #60 04/01/23 grams ciprofloxacin HCl 500 mg tablet 500 mg PO BID 5 days #10 tabs 07/28/23 (Cipro) Allergies Allergy/AdvReac Type Severity Reaction Status Date / Time latex [LATEX] Allergy Unknown Verified 02/14/23 10:54 codeine Allergy Verified 02/14/23 10:54 [facility] Disclaimer: The information contained in this section may have been updated after the patient was seen, as this information can be updated by other users. Medical History (Updated 07/28/23 @ 19:41 by Azeem Mckay APRN) Anxiety Depression Kidney stone Urinary tract infection Surgical History History of section History of cholecystectomy Social History Smoking Status: Current every day smoker tobacco type: cigarettes packs per day: 1 second hand exposure: No alcohol intake: never substance use type: unknown 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al status: unemployed Travel in the last 8 weeks: None household members: family and children housing: house number of children: 3 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: [employer] staff[employer] 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al exposures/hazards: No caffeine: Yes ROS Obtained: Yes All systems reviewed & no additional complaints except as documented Constitutional Constitutional: Reports system reviewed and no additional complaints, except as documented, Denies chills and Denies fever(s) Eyes Eyes: Denies eye discharge ENT Ears, Nose, Mouth, and Throat: Denies dysphagia, Denies sore throat and Denies throat swelling Cardiovascular Cardiovascular: Denies chest pain and Denies dyspnea Respiratory Respiratory: Denies chest congestion, Denies cough and Denies dyspnea Gastrointestinal Gastrointestingal: Denies abdominal pain, constipation, diarrhea, dysphagia, nausea or vomiting Genitourinary Female Genitourinary: Reports as per HPI, Reports dysuria, Reports urinary frequency, Denies urinary incontinence, Reports urinary hesitancy and Reports urinary urgency Musculoskeletal Musculoskeletal: Denies arthralgias and Reports back pain Integumentary/Breasts Skin/Breast: Denies rash Neurologic Neurologic: Denies paresthesias Allergic/Immunologic Allergic/Immunologic: Denies throat swelling Physical Exam General General appearance: alert and in no apparent distress Head Head exam: atraumatic, normocephalic and normal inspection Eye Eye exam: Present normal appearance, PERRL and EOMI ENT ENT exam: Present normal exam, normal oropharynx, mucous membranes moist, TM's normal bilaterally and normal external ear exam Neck Neck exam: Present normal inspection, full ROM and trachea midline; Absent meningismus or lymphadenopathy Chest Chest inspection: Present normal inspection and symmetric chest wall rise; Absent tenderness Respiratory Respiratory exam: Present normal lung sounds bilaterally; Absent respiratory distress Cardiovascular Cardiovascular exam: Present regular rate and normal rhythm; Absent JVD Abdominal Exam Abdominal exam: Present soft and normal bowel sounds; Absent distention, tenderness or guarding Extremities Exam Extremities exam: Present normal inspection, full ROM and normal capillary refill; Absent calf tenderness Back Exam Back exam: Present normal inspection; Absent tenderness Neurological Exam Neurological exam: Present alert and oriented X3 Psychiatric Psychiatric exam: Present normal affect and normal mood Skin Skin exam: Present warm, dry, intact and normal color Lymphatic Lymphatic Findings: no adenopathy Medical Decision Making Medical Records Medical records reviewed: No I reviewed the patient's medical records. Oneal Inquiry Pt receiving controlled substance: No Lab Data Lab results reviewed: Yes I reviewed the patient's lab results. 07/28/23 19:22 07/28/23 19:22
[2023-07-28 18:30] VITALS: BP 145/88; PULSE 60; RESP 18; TEMP 36.6; O2SAT 100; BMI 21.9
[2023-07-28 18:44] LABS: Apearance,Urine Clear (Clear); Color,Urine Yellow (Yellow); PH,Urine 5.5 (5.0-8.5)
[2023-07-28 18:45] LABS: Bilirubin,Urine Negative (Negative); Blood, Urine Negative (Negative); Glucose,Urine (UA) Negative (Negative); Ketones,Urine Negative (Negative); Protein,Urine Trace (Negative); UTC Leukocyte Esterase,Urine Negative (Negative); UTC Nitrate,Urine Negative (Negative); Urobilinogen,Urine 0.2 EU/dl (0.2)
[2023-07-28 19:30] LABS: Basophils % 0.6 % (0.1-2.0); Eosinophils # 0.2 K/mm3 (0.0-0.4); Eosinophils % 3.2 % (0.1-12.0); Hematocrit 35.9 % (37.0-47.0); Hemoglobin 12.4 g/dL (12.2-16.2); Lymphocytes % 34.4 % (10-50); Mean Corpuscular HGB Conc 34.4 g/dL (31.8-35.4); Mean Corpuscular Hemoglobin 31.2 pg (27.0-31.2); Mean Corpuscular Volume 90.7 fl (81-99); Mean Platelet Volume 8.4 fl (7.4-10.4); Monocytes # 0.2 K/mm3 (0.1-1.0); Monocytes % 4.2 % (1.7-9.3); Neutrophils # 3.3 K/mm3 (1.8-7.8); Neutrophils % 57.7 % (37.0-80.0); Platelet Count 194 K/mm3 (142-424); Red Blood Count 3.96 M/mm3 (4.20-5.40); Red Cell Distribution Width 13.3 % (11.5-17.5); White Blood Count 5.7 K/mm3 (4.8-10.8)
[2023-07-28 19:35] LABS: Chloride 107 mmol/L (98-107); Potassium 3.9 mmoL/L (3.5-5.1); Sodium 141 mmol/L (136-145)
[2023-07-28 19:38] LABS: Anion Gap 6.9 mEq/L (5-15); Blood Urea Nitrogen 20 mg/dl (7-17); Calcium 9.8 mg/dl (8.4-10.2); Carbon Dioxide 31 mmol/L (22.0-30.0); Creatinine Clearance Estimated 71 mL/min (50-200); Estimated Glomerular Filt Rate 55 ml/min (>60); GFR (African American) 67 ML/MIN (>60); Glucose 95 mg/dl (74-100)
[2023-07-28 19:42] VITALS: BP 145/88; PULSE 60; RESP 18; TEMP 36.6; O2SAT 100
== END 2023-07-28 19:45 | disposition home or self-care (01) ==
PROVIDERS: Emergency Provider Nurse Practitioner Family; PCP Nurse Practitioner Family
DX: N39.0 Urinary tract infection, site not specified (principal); B96.89 Other specified bacterial agents as the cause of diseases classified elsewhere; M54.59 Other low back pain; R10.30 Lower abdominal pain, unspecified; F17.210 Nicotine dependence, cigarettes, uncomplicated
CPT/HCPCS: 80048; 81003; 85025; 87086; 99212; 99214; G0463

== ENCOUNTER 2023-08-04 10:56 | Emergency (ER) | payer OTHER, SELFPAY ==
[2023-08-04] VITALS (11 sets, daily range): BP systolic 91–118; BP diastolic 52–72; PULSE 60–77; RESP 15–18; TEMP 36.9; O2SAT 98–100; BMI 20.8
--- NOTE | 2023-08-04 10:58 | CT_ITS ---
PROCEDURE INFORMATION: Exam: CT Abdomen And Pelvis Without Contrast Exam date and time: 08/04/2023 12:48 PM Age: 37 years old Clinical indication: Nausea and vomiting; Additional info: Concern for stone, history of nephrolithiasis TECHNIQUE: Imaging protocol: Computed tomography of the abdomen and pelvis without contrast. Radiation optimization: All CT scans at this facility use at least one of these dose optimization techniques: automated exposure control; mA and/or kV adjustment per patient size (includes targeted exams where dose is matched to clinical indication); or iterative reconstruction. COMPARISON: CT ABDOMEN PELVIS W CON 04/23/2022 8:30 PM FINDINGS: Liver: Unremarkable. Gallbladder and bile ducts: Unremarkable. Pancreas: Unremarkable. Spleen: Unremarkable. Adrenal glands: Unremarkable. Kidneys and ureters: Single punctate (2-3mm) non-obstructing stone in the lower pole of the left kidney, unchanged from 04/23/2022 exam. Atrophic right kidney, also unchanged. No other renal or ureteral stones. Stomach and bowel: Significant amount of well-formed stool in the sigmoid colon and rectum suggestive of constipation. No evidence of bowel obstruction. Appendix: Appendix is visualized and is normal. Intraperitoneal space: No free fluid. No pneumoperitoneum. Vasculature: Phleboliths noted in the pelvis. Lymph nodes: Unremarkable. Urinary bladder: Bladder is decompressed, limiting evaluation. Reproductive: Tubal ligation in stable position in the bilateral adnexa. Bones/joints: Moderate spinal canal stenosis and neuroforaminal narrowing at L5-S1 secondary to degenerative disc osteophyte and disc bulging, grossly unchanged from prior exam. No evidence of acute osseous abnormality. Soft tissues: Small fat containing umbilical hernia, unchanged. IMPRESSION: 1. Single punctate (2-3mm) non-obstructing stone in the lower pole of the left kidney, unchanged from 04/23/2022 exam. 2. Significant amount of well-formed stool in the sigmoid colon and rectum suggestive of constipation. No evidence of bowel obstruction. 3. Moderate spinal canal stenosis and neuroforaminal narrowing at L5-S1 secondary to degenerative disc osteophyte and disc bulging, grossly unchanged from prior exam. 4. Additional chronic ancillary findings detailed above are also unchanged from prior exam.
[2023-08-04 11:03] LABS: Microscopic, Urine URINE MICROSCOPIC (MICROSCOPIC)
[2023-08-04 11:06] LABS: Appearance,Urine CLEAR (Clear); Blood, Urine Negative (Negative); Color,Urine YELLOW (Yellow); Glucose,Urine (UA) Negative (Negative); Ketones,Urine Negative (Negative); Leukocyte Esterase,Urine Negative (Negative); Nitrate,Urine Negative (Negative); Protein,Urine Negative (Negative); Specific Gravity, Urine >= 1.030 (1.005-1.030); Urobilinogen,Urine 0.2 EU/dl (0.2)
[2023-08-04 11:13] LABS: Bilirubin,Urine Negative (Negative)
[2023-08-04] MEDS: KETOROLAC 30MG/ML VIAL 15 MG IV (11:15)
[2023-08-04 11:21] LABS: Bacteria,Urine Trace /lpf
[2023-08-04 11:26] LABS: Alanine Aminotransferase 33 U/L (12-78); Albumin/Globulin Ratio 1.4 (1.1-1.8); Alkaline Phosphatase 94 U/L (38-126); Anion Gap 13.9 mEq/L (5-15); Aspartate Amino Transferase 37 U/L (14-36); Blood Urea Nitrogen 22 mg/dl (7-17); Calcium 9.9 mg/dl (8.4-10.2); Carbon Dioxide 26 mmol/L (22.0-30.0); Chloride 105 mmol/L (98-107); Creatinine Clearance Estimated 74 mL/min (50-200); Estimated Glomerular Filt Rate 62 ml/min (>60); GFR (African American) 75 ML/MIN (>60); Globulin 3.6 g/dL (1.3-3.2); Glucose 114 mg/dl (74-100); Potassium 3.9 mmoL/L (3.5-5.1); Sodium 141 mmol/L (136-145); Total Protein,Serum 8.6 g/dl (6.3-8.2)
--- NOTE | 2023-08-04 11:29 | HMH.EDGENADL ---
Discharge Plan Disposition Patient Disposition: Home, Self-Care Chief Complaint: PAIN Prescriptions Prescriptions: No Action phenazopyridine [Pyridium] 200 mg tablet 200 mg PO Q8H 2 Days Qty: 6 0RF sulfamethoxazole-trimethoprim [Bactrim DS] 800-160 mg Tablet 1 tab PO BID Qty: 14 0RF permethrin 5 % cream 1 applic topical Q14D Qty: 60 0RF Rx Instructions: apply to all areas of the body from the neck to the soles of the feet; leave on for 14 hours before removing by washing. May repeat if still symptomatic after 14 days. metronidazole 500 mg Tablet 500 mg PO TID Qty: 30 0RF minocycline 100 mg Capsule 100 mg PO BID Qty: 20 0RF ketorolac 10 mg tablet 10 mg PO TID 5 Days Qty: 10 0RF ciprofloxacin HCl [Cipro] 500 mg tablet 500 mg PO BID 5 Days Qty: 10 0RF Referrals Follow up/Referrals: Omaira Michael APRN [Primary Care Provider] - See instructions Activity Restrictions/Add. Instructions Additional Instructions/Restrictions: Follow-up with family doctor regarding this visit to the emergency department. Discuss follow-up with spine surgery team for further evaluation of your spinal cord at L5/S1 level. Call your family doctor to establish care for this visit to the emergency department and schedule follow-up within 48 hours to ensure improvement. If you have any worsening of your condition or any other concerning signs or symptoms, return to the emergency department or your primary care doctor for further evaluation. Clinical Impressions Clinical Impression: Spinal stenosis Qualifiers: Spinal region: unspecified Qualified Code(s): M48.00 - Spinal stenosis, site unspecified Discharge ED Provider: Aldo Leiva General Adult HPI General Chief complaint: PAIN Stated complaint: possible kidney stones Time Seen by Provider: 08/04/23 10:57 Mode of Arrival: Ambulatory Source of Information: Patient Limitations: No Limitations Description of Symptoms (Recalled from ER Triage Doc. by RN): pt presents to ED with c/o lower back pain. pt reports she was seen in [facility] on 07/28/22, was given cipro. pt was seen for similar symptoms. pt reports she only took 3 doses of medication, but had no relief. presents to ED with increased pain. History of Present Illness HPI narrative: 37-year-old female UTIs, kidney stones, hepatitis C, IV drug use in remission, appendectomy, cholecystectomy, numerous C-sections presenting with flank pain. Patient states that she was seen in the urgent care a few days prior to this and was given ciprofloxacin for urinary tract infection. Since that time, she has only taken a couple of the pills. She is now having right flank pain that radiates anteriorly into the right side of her abdomen. Patient does not remember when her last menstrual period is, she does not have menstrual periods anymore. No vaginal discharge or bleeding. No overlying skin changes. No fevers or chills, and vomiting, she has been nauseous. Related Data Previous Rx's Medication Instructions Recorded ketorolac 10 mg tablet 10 mg PO TID 5 days #10 tabs 04/19/22 metronidazole 500 mg tablet 500 mg PO TID #30 tabs 04/19/22 minocycline 100 mg capsule 100 mg PO BID #20 caps 04/19/22 phenazopyridine 200 mg tablet 200 mg PO Q8H 2 days #6 tabs 02/14/23 (Pyridium) sulfamethoxazole 800 1 tab PO BID #14 tabs 02/14/23 mg-trimethoprim 160 mg tablet (Bactrim DS) permethrin 5 % topical cream 1 applic topical Q14D 2 doses #60 04/01/23 grams ciprofloxacin HCl 500 mg tablet 500 mg PO BID 5 days #10 tabs 07/28/23 (Cipro) Allergies Allergy/AdvReac Type Severity Reaction Status Date / Time latex [LATEX] Allergy Unknown Verified 02/14/23 10:54 codeine Allergy Verified 02/14/23 10:54 [facility] Disclaimer: The information contained in this section may have been updated after the patient was seen, as this information can be updated by other users. Medical History (Updated 08/04/23 @ 14:24 by Aldo Leiva MD) Anxiety Depression Kidney stone Urinary tract infection Surgical History History of section History of cholecystectomy Social History Smoking Status: Current every day smoker tobacco type: cigarettes packs per day: 1 second hand exposure: No alcohol intake: never substance use type: unknown 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al status: unemployed Travel in the last 8 weeks: None household members: family and children housing: house number of children: 3 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al exposures/hazards: No caffeine: Yes ROS Obtained: Yes All systems reviewed & no additional complaints except as documented Physical Exam General General appearance: alert and in no apparent distress Head Head exam: atraumatic and normocephalic Eye Eye exam: Present normal appearance, PERRL and EOMI ENT ENT exam: Present mucous membranes moist Neck Neck exam: Present normal inspection, full ROM and trachea midline Respiratory Respiratory exam: Absent respiratory distress, wheezes, stridor, accessory muscle use or prolonged expiratory phase Cardiovascular Cardiovascular exam: Present normal rhythm Abdominal Exam Abdominal exam: Present soft; Absent distention, tenderness, guarding, rebound or rigidity Extremities Exam Extremities exam: Absent edema Back Exam Back exam: Present CVA tenderness (R); Absent CVA tenderness (L) Neurological Exam Neurological exam: Present alert, oriented X3, CN II-XII intact and normal gait; Absent motor sensory deficit Skin Skin exam: Present warm and dry; Absent diaphoresis or erythema Medical Decision Making Medical Records Medical records reviewed: Yes I reviewed the patient's medical records. Oneal Inquiry Pt receiving controlled substance: No Oneal was queried for this patient: No Vital Signs: 08/04/23 10:56 08/04/23 11:02 08/04/23 11:30 Temperature 98.4 F Temperature Source Oral Pulse Rate 75 70 Pulse Rate [Left Radial] 77 Respiratory Rate 15 18 Blood Pressure 118/72 105/62 L Blood Pressure [Right Arm] 118/72 Blood Pressure Mean [Right Arm] 87 02 Sat by Pulse Oximetry 100 100 99 Oxygen Delivery Method Room Air 08/04/23 12:15 08/04/23 13:00 08/04/23 13:28 Temperature Temperature Source Pulse Rate 73 67 63 Pulse Rate [Left Radial] Respiratory Rate 16 16 Blood Pressure 100/52 L 105/60 L 95/60 L Blood Pressure [Right Arm] Blood Pressure Mean [Right Arm] 02 Sat by Pulse Oximetry 100 99 100 Oxygen Delivery Method Room Air 08/04/23 13:30 08/04/23 13:45 08/04/23 14:00 Temperature Temperature Source Pulse Rate 62 70 61 Pulse Rate [Left Radial] Respiratory Rate Blood Pressure 94/55 L 93/57 L 93/58 L Blood Pressure [Right Arm] Blood Pressure Mean [Right Arm] 02 Sat by Pulse Oximetry 100 100 100 Oxygen Delivery Method Room Air Room Air Room Air Lab Data Lab Results 08/04/23 10:59: Urine Color Yellow, Urine Appearance Clear, Urine pH 6.0, Ur Specific [place] >= 1.030, Urine Protein Negative, Urine Glucose (UA) Negative, Urine Ketones Negative, Urine Blood Negative, Urine Nitrate Negative, Urine Bilirubin Negative, Urine Urobilinogen 0.2, Ur Leukocyte Esterase Negative, Urine RBC None, Urine WBC None, Ur Squamous Epith Cells 3-5, Urine Bacteria Trace 08/04/23 11:10: WBC 3.4 L, RBC 4.43, Hgb 13.5, Hct 40.2, MCV 90.7, MCH 30.4, MCHC 33.5, RDW 13.2, Plt Count 164, MPV 8.4, Neut % (Auto) 48.5, Lymph % (Auto) 38.6, [place] % (Auto) 7.6, Eos % (Auto) 4.5, Baso % (Auto) 0.8, Neut # (Auto) 1.7 L, Lymph # (Auto) 1.3, [place] # (Auto) 0.3, Eos # (Auto) 0.2, Baso # (Auto) 0.0, Sodium 141, Potassium 3.9, Chloride 105, Carbon Dioxide 26, Anion Gap 13.9, BUN 22 H, Creatinine 1.00, Estimated Creat Clear 74, Estimated GFR 62, Est GFR ( Amer) 75, Glucose 114 H, Calcium 9.9, Total Bilirubin 1.0, AST 37 H, ALT 33, Alkaline Phosphatase 94, Total Protein 8.6 H, Albumin 5.0, Globulin 3.6 H, Albumin/Globulin Ratio 1.4, HCG, Quant 5 08/04/23 11:10 08/04/23 11:10 Orders (Tests/Meds): ED MEDICATIONS Discontinued Medications Generic Name Dose Route Start Last Admin Trade Name Freq PRN Reason Stop Dose Admin Ketorolac Tromethamine 15 mg 08/04/23 10:59 08/04/23 11:15 Ketorolac 30mg/Ml Vial IV 08/04/23 11:00 15 mg ONCE ONE Administration ORDERS Category Date Time Status CT abdomen pelvis wo con Stat Cat Scan 08/04/23 10:58 Completed CBC w/Auto Diff [Complete Blood Count Auto Diff] Stat Lab 08/04/23 11:10 Completed CMP [Comprehensive Metabolic Panel] Stat Lab 08/04/23 11:10 Completed HCG,Quantitative Stat Lab 08/04/23 11:10 Completed UA [Urinalysis and Microscopic] Stat Lab 08/04/23 10:59 Completed Medical Decision Narrative: 37-year-old female UTIs, kidney stones, hepatitis C, IV drug use in remission, appendectomy, cholecystectomy, numerous C-sections presenting with flank pain. Patient states that she was seen in the urgent care a few days prior to this and was given ciprofloxacin for urinary tract infection. Since that time, she has only taken a couple of the pills. She is now having right flank pain that radiates anteriorly into the right side of her abdomen. It is severe, intermittent, stabbing. Patient does not remember when her last menstrual period is, she does not have menstrual periods anymore. No vaginal discharge or bleeding. No overlying skin changes. No fevers or chills, and vomiting, she has been nauseous. History was obtained via conversation with patient. On arrival, patient hemodynamically stable, alert, oriented x4, appropriate, GCS 15, moving all extremities spontaneously, pupils equal and reactive to light. Full physical exam performed and significant for very well-appearing, no acute distress. Abdomen soft, nontender, nondistended. No tenderness elicited on my exam. No overlying skin change. Mild right flank tenderness without left flank tenderness. Differential includes PUD, gastritis, enteritis, gastroenteritis, pancreatitis, SBO, colitis, diverticulitis, nephrolithiasis, UTI, , hepatitis, torsion, aortic pathology, mesenteric ischemia among others. Patient was given Toradol and [place] of for symptomatic management and correction of underlying abnormalities. Workup independently interpreted and significant for no leukocytosis. Urinalysis without concern for UTI, no blood. hCG negative. Kidney function normal. CT abdomen pelvis without contrast demonstrated no acute intra-abdominal pathology. Stable stone in the left ureter. Patient also has moderate canal stenosis at L5/S1, likely causing pain. see radiology read for full review of final results. On reevaluation, patient resting comfortably in bed. Given patient presentation, workup, history, this most likely represents spinal stenosis. Because patient at baseline without signs or symptoms of clinical decompensation, deemed appropriate for discharge. Results were relayed to patient who voiced understanding and were agreeable to outpatient management and follow up. At the time of discharge the patient was hemodynamically stable, tolerating PO, and mobilizing appropriately. It was recommended that she follow-up with her family doctor for spine surgery eval and close return precautions were given. Critical Care Critical Care Time Critical Care Time: No
[2023-08-04 11:34] LABS: Basophils % 0.8 % (0.1-2.0); Eosinophils # 0.2 K/mm3 (0.0-0.4); Eosinophils % 4.5 % (0.1-12.0); Hematocrit 40.2 % (37.0-47.0); Hemoglobin 13.5 g/dL (12.2-16.2); Lymphocytes # 1.3 K/mm3 (0.7-4.5); Lymphocytes % 38.6 % (10-50); Mean Corpuscular HGB Conc 33.5 g/dL (31.8-35.4); Mean Corpuscular Hemoglobin 30.4 pg (27.0-31.2); Mean Corpuscular Volume 90.7 fl (81-99); Mean Platelet Volume 8.4 fl (7.4-10.4); Monocytes # 0.3 K/mm3 (0.1-1.0); Monocytes % 7.6 % (1.7-9.3); Neutrophils # 1.7 K/mm3 (1.8-7.8); Neutrophils % 48.5 % (37.0-80.0); Platelet Count 164 K/mm3 (142-424); Red Blood Count 4.43 M/mm3 (4.20-5.40); Red Cell Distribution Width 13.2 % (11.5-17.5); White Blood Count 3.4 K/mm3 (4.8-10.8)
[2023-08-04 12:26] LABS: HCG,Quantitative 5 mIU/ml (0-5.42)
--- NOTE | 2023-08-04 12:50 | PC.NURSE ---
PT gone to RAD
--- NOTE | 2023-08-04 14:25 | PC.NURSE ---
Dr. Leiva at to update pt on results
== END 2023-08-04 14:40 | disposition home or self-care (01) ==
PROVIDERS: Emergency Provider Emergency Medicine; PCP Nurse Practitioner Family
DX: M48.00 Spinal stenosis, site unspecified (principal); F17.210 Nicotine dependence, cigarettes, uncomplicated; B18.2 Chronic viral hepatitis C; Z87.442 Personal history of urinary calculi
CPT/HCPCS: 74176; 80053; 81001; 84702; 85025; 96374; 99284

== ENCOUNTER 2024-01-27 15:31 | Emergency (ER) | payer OTHER, SELFPAY ==
[2024-01-27 17:06] VITALS: BP 115/68; PULSE 62; RESP 16; TEMP 36.6; O2SAT 100; BMI 21.8
--- NOTE | 2024-01-27 17:11 | EXP.UTC ---
Discharge Plan Disposition Patient Disposition: Home, Self-Care Condition: Good Prescriptions Prescriptions: New cefdinir 300 mg capsule 300 mg PO BID Qty: 20 0RF phenazopyridine [Pyridium] 200 mg tablet 200 mg PO Q8H 2 Days Qty: 6 0RF No Action phenazopyridine [Pyridium] 200 mg tablet 200 mg PO Q8H 2 Days Qty: 6 0RF sulfamethoxazole-trimethoprim [Bactrim DS] 800-160 mg Tablet 1 tab PO BID Qty: 14 0RF permethrin 5 % cream 1 applic topical Q14D Qty: 60 0RF Rx Instructions: apply to all areas of the body from the neck to the soles of the feet; leave on for 14 hours before removing by washing. May repeat if still symptomatic after 14 days. prednisone 20 mg tablet 40 mg PO DAILY 5 Days Qty: 10 0RF metronidazole 500 mg Tablet 500 mg PO TID Qty: 30 0RF minocycline 100 mg Capsule 100 mg PO BID Qty: 20 0RF ketorolac 10 mg tablet 10 mg PO TID 5 Days Qty: 10 0RF ciprofloxacin HCl [Cipro] 500 mg tablet 500 mg PO BID 5 Days Qty: 10 0RF Referrals Follow up/Referrals: Nicole Vick MD [Primary Care Provider] - See instructions Activity Restrictions/Add. Instructions Additional Instructions/Restrictions: *Increase fluids. Water not Soda or Tea *Start antibiotic immediately and be sure to take as ordered for the FULL length of time although you should start to see improvement over the next 48 hours *Pyridium as needed Remember this medication will turn your urine . This is normal but it will stain what ever it gets on *You should not use Pyridium for more than 48 hours. If so , follow up with your primary physician to review urine culture and ensure that antibiotic is adequate for infection *Be SURE to follow up anytime for new or worsening symptoms with your family doctor. AND in 48 hours for urine culture results with your family doctor, if you do not have a doctor then you may call back to the [facility] for urine culture results and further treatment. We do recommend that you choose and establish care with a Primary Care Physician. ?AND follow up with them ?in 10-14 days to repeat UA to ensure infection is resolved and blood no longer present *Be sure to let your PCP know that we sent urine cultures from the [facility] so they can follow up to ensure that you area the on the correct antibiotic Call your doctor office and make appointment for 48 hours (2 days from today) ?to follow up and get the results of your urine culture and further treatment Clinical Impressions Clinical Impression: UTI (urinary tract infection) Instructions Patient Instructions: DI for Urinary Tract Infection (UTI), Urinary Tract Infection, Cefdinir Print Language Print Language: Citizen Of [place] Discharge ED Provider: Rebecca Morocho [facility] HPI General Stated complaint: burning, when urinating, cramps Mode of Arrival: Ambulatory Source of Information: Patient Limitations: No Limitations Time Seen by Provider: 01/27/24 17:11 Description of Symptoms (Recalled from Triage Doc. by RN): Complaint of burning and itching with urination. States she has a strong urine odor and yellow discharge. HEENT Symptoms (Recalled from RN notes): No Resp Symptoms (Recalled from RN notes): No Skin Symptoms (Recalled from RN notes): No MS Symptoms (Recalled from RN notes): No Functional Status (Recalled from RN notes): wnl History of Present Illness Provider Complaint: Patient states that this morning she woke up and was having burning with urination, pressure in her lower abdomen and frequency and urgency Notice her urine was dark in color with strong odor thinks she may have a UTI Related Data Previous Rx's ?Medication ?Instructions ?Recorded ketorolac 10 mg tablet 10 mg PO TID 5 days #10 tabs 04/19/22 metronidazole 500 mg tablet 500 mg PO TID #30 tabs 04/19/22 minocycline 100 mg capsule 100 mg PO BID #20 caps 04/19/22 phenazopyridine 200 mg tablet 200 mg PO Q8H 2 days #6 tabs 02/14/23 (Pyridium) sulfamethoxazole 800 1 ta
[2024-01-27 17:14] LABS: Apearance,Urine Cloudy (Clear); Color,Urine Yellow (Yellow); Glucose,Urine (UA) Negative (Negative); Ketones,Urine Negative (Negative); PH,Urine 5.5 (5.0-8.5); Protein,Urine 2+ (Negative)
[2024-01-27 17:15] LABS: Bilirubin,Urine Negative (Negative); Blood, Urine 2+ (Negative); UTC Leukocyte Esterase,Urine 3+ (Negative); UTC Nitrate,Urine Positive (Negative); Urobilinogen,Urine 0.2 EU/dl (0.2)
[2024-01-27 17:42] VITALS: BP 115/68; PULSE 62; RESP 16; TEMP 36.6; O2SAT 100
--- NOTE | 2024-01-29 16:57 | PC.NURSE ---
REVIEWED URINE CULTURE WITH Caleb PALACIOS APRN. NO CHANGE NEEDED AT THIS TIME
== END 2024-01-27 17:42 | disposition home or self-care (01) ==
PROVIDERS: Emergency Provider Nurse Practitioner; PCP Family Medicine
DX: N39.0 Urinary tract infection, site not specified (principal); B96.29 Other Escherichia coli [E. coli] as the cause of diseases classified elsewhere; R10.30 Lower abdominal pain, unspecified; R30.0 Dysuria; R35.0 Frequency of micturition
CPT/HCPCS: 81003; 87086; 87088; 87186; 99212; 99214; G0463

== ENCOUNTER 2025-04-13 19:40 | Outpatient (CLI) | payer OTHER, SELFPAY ==
--- OUTSIDE RECORDS SUMMARY | 2025-04-14 13:29 | XMS_ITS | Clinical Summary ---
Author Organization Healthcare Address [address] [place] [address] Care Team Providers Care Re Recording Mixer Name Role Phone Pcp, No Primary Care Provider Unavailabl e Pcp, No Unavailable Unavailable Allergies Active Allergy Reactions Criticality Noted Date Comments Codeine Unknown - Patient st ates they do not know rxn details Low 06/11/2016 Latex Rash Low 07/23/2016 Medications * This document contains information received from the source organization and may not represent a complete record from that organization. buPROPion XL (Wellbutrin XL) 300 MG 24 hr tablet GIVE 1 TABLET BY MOUTH DAILY IN THE MORNING 05/03/20 21 Active mirtazapine (Remeron) 15 MG tablet GIVE 1 TABLET BY MOUTH DAILY AT BEDTIME 04/18/20 21 Active melatonin 1.5 mg tablet split tablet GIVE 1 TABLET AT BEDTIME NEEDED 04/25/20 21 Active buprenorphine-nalo xone (Suboxone) 8-2 MG SL tablet GIVE 1 & 1/2 SUBLINGUAL TABLET DAILY IN THE MORNING FOR 7 DAYS (1/4 TABLET REMAINING) 04/26/20 21 Active methylPREDNISolone (Medrol Dospak) 4 MG tabletsIndications :Pain in both knees, unspecified chronicity,Primary osteoarthritis of both knees,Quadriceps weakness,Quadricep tightness,Hamstrin g tightness Follow schedule on package instructions 21 tablet 10/16/19 25 Active diclofenac (Voltaren) 75 MG EC tabletIndications: Pain in both knees, unspecified chronicity,Primary osteoarthritis of both knees,Quadriceps weakness,Quadricep tightness,Hamstrin g tightness Take 1 tablet by mouth 2 times a day. Do not crush, chew, or split. START TAKING AFTER MEDROL DOSE PACK COMPLETED 60 tablet 1 10/16/19 25 Active Active Problems Problem Noted Date Diagnosed Date Primary osteoarthritis of both knees 06/15/2021 Patellar tendonitis of both knees 06/15/2021 History of intravenous drug use in remission Resolved Problems Problem Noted Date Diagnosed Date Resolved Date Bilateral chronic knee pain 06/15/2021 02/21/2025 Immunizations Immunization Administration Dates Next Due Tdap 02/15/2018 Social History Tobacco Use Types Packs/Day Years Used Date Smoking Tobacco: Unknown Smokeless Tobacco: Never Alcohol Use Standard Drinks/Week Comments Defer 0 (1 standard drink = 0.6 oz pur e alcohol) PHQ-2 Answer Date Recorded Patient Health Questionnaire-2 Score 0 06/15/2021 Comments Unknown Sex and Gender Information Value Date Recorded Sex Assigned at Not on file Legal Sex Female 8:07 PM EDT Gender Identity Not on file Sexual Orientation Not on file Last Filed Vital Signs Vital Sign Reading Time Taken Comments Blood Pressure 112/70 10/15/2024 8:59 AM EDT Pulse 54 01/10/2023 8:00 PM EDT Temperature 36.7 C (98 F) 01/10/2023 6:00 PM EDT Respiratory Rate 13 01/10/2023 8:00 PM EDT Oxygen Saturation 99% 01/10/2023 8:00 PM EDT Inhaled Oxygen Concentration - - Weight 73 kg (160 lb 15 oz) 10/15/2024 8:59 AM E DT Height 172.7 cm (5' 8 ) 10/15/2024 8:59 AM EDT Body Mass Index 24.47 10/15/2024 8:59 AM EDT Plan of Treatment Health Maintenance Due Date Last Done Comments [facility]-/Child/Adol SDOH Screenings 1983 [facility]-Varicella Vaccines (1 of 2 - 13+ 2-dose series) 11/11/1996 [facility]- SDOH Screenings 11/11/2001 [facility]-Adult SDOH Screenings 11/11/2001 [facility]-Hepatitis B Vaccines (1 of 3 - 19+ 3-dose series) 11/11/2002 [facility]-Pap Smear 11/11/2004 HPV Vaccines (1 - 3-dose SCDM series) 11/11/2010 [facility]-Cervical Cancer Screening 11/11/2013 [facility]-HPV/Cotest 11/11/2013 [facility]-Depression Screening 06/15/2022 06/15/2021 [id number] Vaccine (1 - 2023- season) 2025 [facility]-Influenza Vaccine (#1) 2025 [facility]-DTaP,Tdap,and Td Vaccines (4 - Td or Tdap) 03/02/2031 03/02/2021, 02/15/2018, 03/08/2011, Additional history exists [facility]-Zoster Vaccines (1 of 2) 11/11/2033 [facility]-Hepatitis A Vaccines Aged Out 09/29/2018 No longer eligible based on patient's age to complete this topic [facility]-HIV Screening Completed 01/10/2023 [facility]-Hepatitis C Screening Completed 2022, 02/15/2018, 02/15/2018 [facility]-HIB Vaccines Aged Out No longer e ligible based on patient's age to complete this topic [facility]-IPV Vaccines Aged Out No longer e ligible based on patient's age to complete this topic [facility]-Pneumococcal Vaccine: Pediatrics (0 to 5 Years) and At-Risk Patients (6 to 49 Years) Aged Out No longer eligible based on patient's age to complete this topic [facility]-Rotavirus Vaccines Aged Out No lo nger eligible based on patient's age to complete this topic Procedures Procedure Name Priority Date/Time Associated Diagnosis Comments HEPATITIS C ANTIBODY - ED W/REFLEX TO HCV QUANT PCR STAT 01/10/2023 1:59 PM EDT ED HIV 1/2 ANTIBODY/ANTIGEN SCREEN WITH REFLEX TO HIV I/II DIFFERENTIATION STAT 01/10/2023 1:59 PM EDT from Last 3 Months or Most Recently Relevant to Health Maintenance Results * ED HIV 1/2 Antibody/Antigen Screen w/Reflex to HIV 1/2 Differentiation (01/10/2023 1:59 PM EDT) HIV 1 & 2 Antibody/Antigen Screen Non Reactive Non Reactive 01/23/2023 6:44 PM EDT [facility] Comment:Screening for HIV 1 & 2 antibodies, and P24 antigen is NONREACTIVE. No confirmatory testing is required. Blood Venous blood specimen / Unknown Venipuncture / Unknown 01/10/2023 1:59 PM EDT 01/10/2023 2:07 PM EDT Romaine Colmenares MD LAB BLOOD ORDERABLES Edited Resu lt - Final [facility] [address] [place] [address] * (ABNORMAL) Hepatitis C Antibody - ED (01/10/2023 1:59 PM EDT) Hepatitis C Antibody Positive(A ) Negative 01/10/2023 2:55 PM EDT [facility] Blood Venous blood specimen / Unknown Venipuncture / Unknown 01/10/2023 1:59 PM EDT 01/10/2023 2:07 PM EDT Romaine Colmenares MD LAB BLOOD ORDERABLES Final Resul t Performing Organization Address City/[facility] Co de Phone Number [facility] [address] [place] [address] from Last 3 Months or Most Recently Relevant to Health Maintenance [facility]ET[facility] MED[facility]ID Care Teams Re Recording Mixer Relationship Specialty Start Date End Date Pcp, No [address] [place] [address] PCP - General Family Medicine 01/10/23 Pcp, No [address] [place] [address] Family Medicine 01/10/23
--- OUTSIDE RECORDS SUMMARY | 2025-04-14 13:29 | XMS_ITS | Clinical Summary ---
Author Organization [facility] Address [address] [place] [address] Care Team Providers Care Vice President Of Advertising Name Role Phone Oleksandr Vick MD Primary Care Provider [phone] Allergies Active Allergy Reactions Criticality Noted Date Comments Codeine 06/11/2016 Latex Rash Low 07/23/2016 Medications No known medications Active Problems No known active problems Immunizations Immunization Administration Dates Next Due Tdap 03/02/2021 Family History Medical History Relation Name Comments Hyperlipidemia Mother Relation Name Status Comments Mother Social History Tobacco Use Types Packs/Day Years Used Date Smoking Tobacco: Former Cigarettes 0.5 12 Alcohol Use Standard Drinks/Week Comments No 0 (1 standard drink = 0.6 oz pur e alcohol) Abuse Screen Answer Date Recorded Unsafe at Home or Work/School Not on file Feels Threatened by Someone? Not on file 02/2023 Does Anyone Keep You from Co ntacting Others or Doint Things Outside the Home? Not on file 03/11/2023 Physical Sign of Abuse Present Not on file 1 Housing Stability Answer Date Recorded Current Living Arrangements Not on file 02/2023 Potentially Unsafe Housing Conditions Not on tao e 03/11/2023 Family and Community Support Answer Anselmo e Recorded Help with Day-to-Day Activities Not on file 03/11/2023 Lonely or Isolated Not on file 03/11/2023 Employment Answer Date Recorded Do you want help finding or keeping work or a judith b? Not on file 03/11/2023 Disabilities Answer Date Recorded Concentrating, Remembering, or Making Decisions Difficulty Not on file 03/11/2023 Doing Errands Independently Difficulty Not on fi le 03/11/2023 Education Answer Date Recorded Help with school or training? Not on file Preferred Language Not on file 03/11/2023 Comments No Sex and Gender Information Value Date Recorded Sex Assigned at Female 12/16/2023 6:42 PM EDT Legal Sex Female 11:59 AM EDT Gender Identity Female 12/16/2023 6:42 PM EDT Sexual Orientation Not on file Last Filed Vital Signs Vital Sign Reading Time Taken Comments Blood Pressure 110/60 12/17/2023 2:04 PM EDT Pulse 75 03/02/2021 8:44 PM EDT Temperature 36.4 C (97.5 F) 12/17/2023 2:04 PM EDT Respiratory Rate 20 03/02/2021 8:44 PM EDT Oxygen Saturation 100% 03/02/2021 8:44 PM EDT Inhaled Oxygen Concentration - - Weight 66.7 kg (147 lb 1.6 oz) 12/17/2023 2:04 PM EDT Height 172.7 cm (5' 8 ) 12/17/2023 2:04 PM EDT Body Mass Index 22.37 12/17/2023 2:04 PM EDT Plan of Treatment Health Maintenance Due Date Last Done Comments Annual Gynecologic Pelvic and Breast Exam 1985 Hepatitis B (1 of 3 - 19+ 3-dose series) 11/11/2002 ANNUAL PHYSICAL 07/02/2020 MAMMOGRAM 2023 INFLUENZA VACCINE 01/01/2025 TDAP/TD VACCINES (5 - Td or Tdap) 03/02/2031 03/02/2021, 02/15/2018, 03/08/2011, Additional history exists HEPATITIS C SCREENING Completed 01/10/2023 Pneumococcal Vaccine 0-49 Aged Out No longer eligible based on patient's age to complete this topic Insurance [facility]ENA [facility] Care Teams Vice President Of Advertising Relationship Specialty Start Date End Date Oleksandr Vick MD [address] [id number] PCP - General Family Medicine 11/01/23
--- OUTSIDE RECORDS SUMMARY | 2025-04-14 13:29 | XMS_ITS | Clinical Summary ---
Author Organization [facility] Address [address] [place] [address] Phone Care Team Providers Care Supply Chain Buyer Name Role Phone Unavailable Unavailable Conditions or Problems No information available. Medications No information available. Medications Administered No information available. Allergies, Adverse Reactions, Alerts No information available. Results No information available. Plan of Care No information available. Procedures No information available. Vital Signs No information available. Immunizations No information available. Advance Directives No information available.
--- OUTSIDE RECORDS SUMMARY | 2025-04-14 13:29 | XMS_ITS ---
Author Organization [facility] Address [address] [place] [address] Care Team Providers Care Slackline Operator Name Role Phone Pcp, No Primary Care Provider Unavailabl e Pcp, No Unavailable Unavailable Hepatitis C Program Status:Paused (Paused) Start date:01/10/2023 Enrollment date:01/10/2023 Enrollment reason:HCV Continued Care and Services Coordination
--- OUTSIDE RECORDS SUMMARY | 2025-04-14 13:29 | XMS_ITS | Clinical Summary ---
Author Organization [facility] Address [address] [place] [address] Phone Care Team Providers Care Department Supervisor Name Role Phone Gage Sandip Terrance Primary Care Provider [phone] Allergies No known active allergies Surgical History Surgery Date Site/Laterality Comments SECTION Social History Tobacco Use Types Packs/Day Years Used Date Smoking Tobacco: Former Alcohol Use Standard Drinks/Week Comments Yes 3 (1 standard drink = 0.6 oz pur e alcohol) Sexually Active Control Partners Comments Yes Comments No Sex and Gender Information Value Date Recorded Sex Assigned at Not on file Legal Sex Female 9:25 PM EDT Gender Identity Not on file Sexual Orientation Not on file Last Filed Vital Signs Vital Sign Reading Time Taken Comments Blood Pressure 115/82 01/27/2022 1:43 PM EDT Pulse 60 01/27/2022 1:43 PM EDT Temperature 36.7 C (98.1 F) 01/27/2022 1:43 PM EDT Respiratory Rate 18 01/27/2022 1:43 PM EDT Oxygen Saturation 99% 01/27/2022 1:43 PM EDT Inhaled Oxygen Concentration - - Weight 61.2 kg (135 lb) 01/27/2022 1:43 PM EDT Height 172.7 cm (5' 8 ) 01/27/2022 1:43 PM EDT Body Mass Index 20.53 01/27/2022 1:43 PM EDT Plan of Treatment Health Maintenance Due Date Last Done Comments Annual Wellness Exam 11/11/1986 Hepatitis B Vaccine (1 of 3 - 19+ 3-dose series) 11/11/2002 COVID-19 Vaccine ( season) 2025 Influenza Vaccine (#1) 2025 DTaP/TDaP/Td (4 - Td or Tdap) 03/02/2031 03/02/2021, 02/15/2018, 03/08/2011, Additional history exists Meningococcal B Vaccine Aged Out No l onger eligible based on patient's age to complete this topic Pneumococcal Vaccine 0-49 Aged Out No longer eligible based on patient's age to complete this topic Care Teams Department Supervisor Relationship Specialty Start Date End Date Sandip Almonte [address] [place] [address] PCP - General Family Medicine 01/27/22
== END 2025-04-13 23:59 | disposition home or self-care (01) ==
LOC: LAB.DROPOF 04-14 13:08
PROVIDERS: PCP Family Medicine; Visit Provider Student in an Organized Health Care Education/Training Program
DX: N30.01 Acute cystitis with hematuria (principal)
CPT/HCPCS: 87086